=== PATIENT | male | born 1950 | race Caucasian/White ===

== ENCOUNTER 2016-07-29 08:00 | Outpatient (CLI) | payer MEDICARE, MEDICAID | END 2016-07-29 08:01 | disposition home or self-care (01) | DX: M86.671 Other chronic osteomyelitis, right ankle and foot (principal) ==

== ENCOUNTER 2016-08-03 13:41 | Emergency (ER) | payer MEDICARE, MEDICAID ==
[2016-08-03] MEDS ORDERED: ALTEPLASE 2 MG VIAL IC ONE (14:06)
== END 2016-08-03 15:23 | disposition home or self-care (01) ==
DX: T82.898A Other specified complication of vascular prosthetic devices, implants and grafts, initial encounter (principal); Y84.6 Urinary catheterization as the cause of abnormal reaction of the patient, or of later complication, without mention of misadventure at the time of the procedure; E11.42 Type 2 diabetes mellitus with diabetic polyneuropathy; I48.91 Unspecified atrial fibrillation; Z79.01 Long term (current) use of anticoagulants; I50.9 Heart failure, unspecified; F17.200 Nicotine dependence, unspecified, uncomplicated; Z95.810 Presence of automatic (implantable) cardiac defibrillator
CPT/HCPCS: 96374; 99283; J2997

== ENCOUNTER 2016-08-05 08:00 | Outpatient (CLI) | payer MEDICARE, MEDICAID | END 2016-08-05 08:01 | disposition home or self-care (01) | DX: M86.671 Other chronic osteomyelitis, right ankle and foot (principal) ==

== ENCOUNTER 2016-08-12 08:00 | Outpatient (CLI) | payer MEDICARE, MEDICAID | END 2016-08-12 08:01 | disposition home or self-care (01) | DX: M86.179 Other acute osteomyelitis, unspecified ankle and foot (principal) ==

== ENCOUNTER 2016-08-16 09:10 | Outpatient (CLI) | payer MEDICARE, MEDICAID | END 2016-08-16 09:11 | disposition home or self-care (01) | DX: I48.91 Unspecified atrial fibrillation (principal); Z79.01 Long term (current) use of anticoagulants ==

== ENCOUNTER 2016-08-19 10:30 | Outpatient (CLI) | payer MEDICARE, MEDICAID | END 2016-08-19 10:31 | disposition home or self-care (01) | DX: M86.179 Other acute osteomyelitis, unspecified ankle and foot (principal) ==

== ENCOUNTER 2016-08-26 13:30 | Outpatient (CLI) | payer MEDICARE, MEDICAID | END 2016-08-26 13:31 | disposition home or self-care (01) | DX: M86.179 Other acute osteomyelitis, unspecified ankle and foot (principal) ==

== ENCOUNTER 2016-10-18 08:00 | Outpatient (CLI) | payer MEDICARE, MEDICAID | END 2016-10-18 23:59 | DX: I25.10 Atherosclerotic heart disease of native coronary artery without angina pectoris (principal); E11.9 Type 2 diabetes mellitus without complications; I48.91 Unspecified atrial fibrillation ==

== ENCOUNTER 2017-02-10 15:06 | Outpatient (CLI) | payer MEDICAID, MEDICARE | END 2017-02-10 15:07 | LOC: LAB.S 15:06 | PROVIDERS: ATTEND Internal Medicine Cardiovascular Disease | DX: I48.91 Unspecified atrial fibrillation (principal); Z79.01 Long term (current) use of anticoagulants | CPT/HCPCS: 85610 ==

== ENCOUNTER 2017-02-25 08:00 | Outpatient (CLI) | payer MEDICARE | END 2017-02-25 08:01 | disposition home or self-care (01) | LOC: LAB.F 08:00 | PROVIDERS: ATTEND Internal Medicine Cardiovascular Disease | DX: I48.91 Unspecified atrial fibrillation (principal); Z79.01 Long term (current) use of anticoagulants | CPT/HCPCS: 85610 ==

== ENCOUNTER 2017-04-02 08:29 | Outpatient (CLI) | payer MEDICARE | END 2017-04-02 08:30 | disposition home or self-care (01) | LOC: LAB.F 08:29 | PROVIDERS: ATTEND Internal Medicine Cardiovascular Disease | DX: I48.91 Unspecified atrial fibrillation (principal); Z79.01 Long term (current) use of anticoagulants | CPT/HCPCS: 85610 ==

== ENCOUNTER 2017-04-14 08:00 | Outpatient (CLI) | payer MEDICARE | END 2017-04-14 08:01 | disposition home or self-care (01) | LOC: LAB.S 08:00 | PROVIDERS: ATTEND Internal Medicine Cardiovascular Disease | DX: I48.91 Unspecified atrial fibrillation (principal); Z79.01 Long term (current) use of anticoagulants | CPT/HCPCS: 85610 ==

== ENCOUNTER 2017-06-09 14:41 | Outpatient (CLI) | payer MEDICARE | END 2017-06-09 14:42 | LOC: LAB.S 14:41 | PROVIDERS: ATTEND Nurse Practitioner Family | DX: I48.91 Unspecified atrial fibrillation (principal); Z79.01 Long term (current) use of anticoagulants | CPT/HCPCS: 85610 ==

== ENCOUNTER 2017-07-23 14:57 | Outpatient (CLI) | payer MEDICARE | END 2017-07-23 14:58 | disposition home or self-care (01) | LOC: LAB.F 14:57 | PROVIDERS: ATTEND Nurse Practitioner Family | DX: I48.91 Unspecified atrial fibrillation (principal); Z79.01 Long term (current) use of anticoagulants | CPT/HCPCS: 85610 ==

== ENCOUNTER 2017-09-08 08:00 | Outpatient (CLI) | payer MEDICARE | END 2017-09-08 08:01 | disposition home or self-care (01) | LOC: LAB.S 08:00 | PROVIDERS: ATTEND Nurse Practitioner Family | DX: I48.91 Unspecified atrial fibrillation (principal); Z79.01 Long term (current) use of anticoagulants | CPT/HCPCS: 85610 ==

== ENCOUNTER 2017-10-16 14:42 | Outpatient (CLI) | payer MEDICARE | END 2017-10-16 14:43 | disposition home or self-care (01) | LOC: LAB.F 14:42 | PROVIDERS: ATTEND Nurse Practitioner Family | DX: I48.91 Unspecified atrial fibrillation (principal); Z79.01 Long term (current) use of anticoagulants | CPT/HCPCS: 85610 ==

== ENCOUNTER 2017-11-24 08:00 | Outpatient (CLI) | payer MEDICARE | END 2017-11-24 08:01 | disposition home or self-care (01) | LOC: LAB.S 08:00 | PROVIDERS: ATTEND Nurse Practitioner Family | DX: I48.91 Unspecified atrial fibrillation (principal); Z79.01 Long term (current) use of anticoagulants | CPT/HCPCS: 85610 ==

== ENCOUNTER 2018-01-15 13:06 | Outpatient (CLI) | payer MEDICARE | END 2018-01-15 13:07 | disposition home or self-care (01) | LOC: LAB.F 13:06 | PROVIDERS: ATTEND Nurse Practitioner Family | DX: I48.91 Unspecified atrial fibrillation (principal); Z79.01 Long term (current) use of anticoagulants | CPT/HCPCS: 85610 ==

== ENCOUNTER 2018-01-19 09:55 | Outpatient (CLI) | payer MEDICARE | END 2018-01-19 09:56 | disposition home or self-care (01) | LOC: LAB.S 09:55 | PROVIDERS: ATTEND Nurse Practitioner Family | DX: I48.91 Unspecified atrial fibrillation (principal); Z79.01 Long term (current) use of anticoagulants | CPT/HCPCS: 85610 ==

== ENCOUNTER 2018-01-22 09:14 | Outpatient (CLI) | payer MEDICARE | END 2018-01-22 09:15 | disposition home or self-care (01) | LOC: LAB.F 09:14 | PROVIDERS: ATTEND Nurse Practitioner Family | DX: I48.91 Unspecified atrial fibrillation (principal); Z79.01 Long term (current) use of anticoagulants | CPT/HCPCS: 85610 ==

== ENCOUNTER 2018-01-26 10:39 | Outpatient (CLI) | payer MEDICARE | END 2018-01-26 10:40 | disposition home or self-care (01) | LOC: LAB.S 10:39 | PROVIDERS: ATTEND Nurse Practitioner Family | DX: I48.91 Unspecified atrial fibrillation (principal); Z79.01 Long term (current) use of anticoagulants | CPT/HCPCS: 85610 ==

== ENCOUNTER 2018-03-19 13:15 | Outpatient (CLI) | payer MEDICARE ==
[2018-03-19 18:22] LABS: INR 3.6 (0.8-1.2); PT - PROTHROMBIN TIME 38.6 secs (9.9-12.6)
== END 2018-03-19 13:16 ==
LOC: LAB.R 13:15
PROVIDERS: ATTEND Nurse Practitioner Family
DX: Z51.81 Encounter for therapeutic drug level monitoring (principal)
CPT/HCPCS: 85610

== ENCOUNTER 2018-03-31 13:55 | Outpatient (CLI) | payer MEDICAID, MEDICARE | END 2018-03-31 13:56 | disposition home or self-care (01) | LOC: RT.S 13:55 | PROVIDERS: ATTEND Nurse Practitioner Family | DX: R63.5 Abnormal weight gain (principal); R06.02 Shortness of breath | CPT/HCPCS: 93005 ==

== ENCOUNTER 2018-04-01 09:19 | Outpatient (CLI) | payer MEDICAID, MEDICARE ==
[2018-04-01 17:28] LABS: BASOPHILS % (AUTO) 0.4 %; EOSINOPHILS # (AUTO) 0.1 10^3/uL (0.0-0.7); EOSINOPHILS % (AUTO) 1.1 %; HGB - HEMOGLOBIN 11.6 g/dL (14.0-18.0); LYMPHOCYTES # (AUTO) 1.2 10^3/uL (1.5-3.5); LYMPHOCYTES % (AUTO) 14.5 %; MEAN CORPUSCULAR HEMOGLOBIN 27.5 pg (27.0-31.0); MEAN CORPUSCULAR HGB CONC 33.2 g/dL (32.0-36.0); MEAN CORPUSCULAR VOLUME 82.9 fL (80.0-94.0); MEAN PLATELET VOLUME 10.1 fL (7.4-11.4); MONOCYTES # (AUTO) 0.6 10^3/uL (0.0-1.0); MONOCYTES % (AUTO) 7.4 %; NEUTROPHILS # (AUTO) 6.5 10^3/uL (1.5-6.6); NEUTROPHILS % (AUTO) 76.6 %; PLT - PLATELET COUNT 188 10^3/uL (130-450); RED BLOOD COUNT 4.22 10^6/uL (4.70-6.10); RED CELL DISTRIBUTION WIDTH 16.1 % (12.0-15.0); WHITE BLOOD COUNT 8.4 x10^3/uL (4.8-10.8)
[2018-04-01 17:41] LABS: ALBUMIN 2.8 g/dL (3.2-5.5); ALBUMIN/GLOBULIN RATIO 0.6 (1.0-2.2); BILIRUBIN,TOTAL 0.8 mg/dL (0.2-1.0); CALCIUM 8.2 mg/dL (8.5-10.3); CREATININE 1.2 mg/dL (0.6-1.2); TOTAL PROTEIN 7.3 g/dL (6.7-8.2)
[2018-04-01 17:44] LABS: HB2 TOTAL 11.8 g/dL; HEMOGLOBIN A1C 0.53 g/dL; HEMOGLOBIN A1C % 6.3 % (4.6-6.2)
[2018-04-01 17:47] LABS: TROPONIN I < 0.04 ng/mL (<0.49)
[2018-04-01 18:06] LABS: CREATINE KINASE MB 1.1 ng/mL (0.6-6.3)
== END 2018-04-01 09:20 | disposition home or self-care (01) ==
LOC: LAB.F 09:19
PROVIDERS: ATTEND Nurse Practitioner Family
DX: R63.5 Abnormal weight gain (principal); E11.40 Type 2 diabetes mellitus with diabetic neuropathy, unspecified; R06.02 Shortness of breath
CPT/HCPCS: 36415; 80053; 82043; 82553; 83036; 84484; 85025; 85379

== ENCOUNTER 2018-05-22 15:03 | Inpatient (IN) | payer MEDICARE ==
--- NOTE | 2018-05-22 15:15 | ED Physician Documentation ---
History of Present Illness - Stated complaint Stated Complaint: SENT BY DOC - Chief complaint Chief Complaint: General - History obtained from History obtained from: Patient - History of Present Illness Timing: Today Pain level max: 0 Pain level now: 0 - Additonal information Additional information: Patient is a 67-year-old male who states he has gained 20 lbs in 3 days. Also states that he has mild dyspnea. does not use inhalers. States he is feeling more tired than usual and his urine is dark. States fallen 2-3 times in the past week. no injuries. feels better with rest and worse with exertion. Review of Systems Ten Systems: 10 systems reviewed and negative Constitutional: denies: Fever, Chills Ears: denies: Ear pain Nose: denies: Rhinorrhea / runny nose, Congestion Throat: denies: Sore throat GI: denies: Abdominal Pain, Vomiting, Diarrhea, Hematemesis, Bloody / black stool Skin: denies: Rash Musculoskeletal: denies: Neck pain, Back pain Neurologic: denies: Headache PD PAST MEDICAL HISTORY - Past Medical History Cardiovascular: Congestive heart failure, Atrial fibrillation, Other Respiratory: Sleep apnea Endocrine/Autoimmune: Type 2 diabetes GI: Hepatitis : Benign prostate hypertrophy, Renal insuffiency HEENT: Chronic hearing loss Psych: Depression Musculoskeletal: Other Derm: None - Past Surgical History Past Surgical History: Yes Ortho: Amputation Cardiovascular: AICD - Present Medications Home Medications: Ambulatory Orders Medication Instructions Recorded Confirmed Furosemide [Lasix] 40 mg PO DAILY 12/01/12 05/22/18 Potassium Chloride [Klor-Con M10] 20 meq PO DAILY 12/01/12 05/22/18 Warfarin Sodium [Coumadin] 10 mg PO DAILY 12/01/12 05/22/18 Lisinopril [Prinivil] 10 mg PO DAILY 12/23/13 05/22/18 Oxycodone HCl 20 mg PO 5XD 09/06/15 05/22/18 fentaNYL [Fentanyl 12mcg patch] 12 mcg TOP Q72H 05/22/18 05/22/18 - Allergies Allergies/Adverse Reactions: Allergies Allergy/AdvReac Type Severity Reaction Status Date / Time carvedilol Allergy Unknown Anxiety Verified 08/03/16 13:57 Sulfa (Sulfonamide Allergy Unknown unknown Verified 08/03/16 13:57 Antibiotics) hydrochlorothiazide Allergy Rash Verified 08/03/16 13:57 tegaderm Allergy Mild Rash Uncoded 08/03/16 13:57 - Social History Does the pt smoke?: Yes Smoking Status: Current some day smoker Does the pt drink ETOH?: No Does the pt have substance abuse?: No - Immunizations Immunizations are current?: Yes - POLST Patient has POLST: No PD ED PE NORMAL - Vitals Vital signs reviewed: Yes - General General: Alert and oriented X 3, No acute distress - HEENT HEENT: PERRL, Ears normal, Moist mucous membranes, Pharynx benign - Neck Neck: Supple, no meningeal sign - Cardiac Cardiac: RRR, Strong equal pulses - Respiratory Respiratory: No respiratory distress, Clear bilaterally - Abdomen Abdomen: Soft, Non tender, Non distended - Back Back: No spinal TTP - Derm Derm: Warm and dry, No rash - Extremities Extremities: Other (1+ B LE edema) - Neuro Neuro: Alert and oriented X 3 - Psych Psych: Normal mood, Normal affect Results - Vitals Vitals: Vital Signs - 24 hr 05/22/18 05/22/18 05/22/18 15:07 16:02 17:00 Temperature 36.3 C L Heart Rate 132 H 104 H 92 Respiratory 18 12 16 Rate Blood Pressure 98/67 140/129 H O2 Saturation 98 97 05/22/18 17:30 Temperature Heart Rate 95 Respiratory 16 Rate Blood Pressure 155/90 H O2 Saturation 97 Oxygen O2 Source [With Activity] Room air O2 Source Room air - EKG (time done) 1537 Rate: Rate (enter#) (115) Rhythm: Atrial fibrillation (w RVR) [place]: Normal QRS: Normal Ischemia: Normal ST segments - Labs Labs: Laboratory Tests 05/22/18 05/22/18 05/22/18 15:30 15:30 15:38 WBC RBC Hgb Hct MCV MCH MCHC RDW Plt Count MPV Neut # (Auto) Lymph # (Auto) [place] # (Auto) Eos # (Auto) Baso # (Auto) Absolute Nucleated RBC Nucleated RBC % PT INR Sodium Potassium Chloride Carbon Dioxide Anion Gap BUN Creatinine Estimated GFR (MDRD) Glucose Calcium Total Bilirubin AST ALT Alkaline Phosphatase Total Creatine Kinase 107 Troponin I < 0.04 B-Natriuretic Peptide Total Protein Albumin Globulin Albumin/Globulin Ratio Lipase Urine Color BROWN Urine Clarity BLOODY Urine pH 5.0 Ur Specific [place] 1.025 Urine Protein Urine Glucose (UA) Urine Ketones Urine Occult Blood Urine Nitrite Urine Bilirubin COLOR INTERFERENCE Urine Urobilinogen 0.2 (NORMAL) Ur Leukocyte Esterase Urine RBC TNTC H Urine WBC 11-25 H Ur Squamous Epith Cells FEW Squamous Urine Bacteria Few Urine Yeast PRESENT Ur Microscopic Review INDICATED Urine Culture Comments INDICATED 05/22/18 05/22/18 05/22/18 15:40 15:40 15:40 WBC 10.0 RBC 4.59 L Hgb 12.4 L Hct 37.8 L MCV 82.4 MCH 26.9 L MCHC 32.7 RDW 18.1 H Plt Count 109 L MPV 9.4 Neut # (Auto) 8.5 H Lymph # (Auto) 0.6 L [place] # (Auto) 0.8 Eos # (Auto) 0.0 Baso # (Auto) 0.0 Absolute Nucleated RBC 0.00 Nucleated RBC % 0.0 PT INR Sodium 129 L Potassium 4.1 Chloride 95 L Carbon Dioxide 23 Anion Gap 11.0 BUN 52 H Creatinine 3.8 H Estimated GFR (MDRD) 16 L Glucose 139 H Calcium 8.1 L Total Bilirubin 1.1 H AST 28 ALT 18 Alkaline Phosphatase 70 Total Creatine Kinase Troponin I B-Natriuretic Peptide 97 Total Protein 7.2 Albumin 3.2 Globulin 4.0 Albumin/Globulin Ratio 0.8 L Lipase 21 L Urine Color Urine Clarity Urine pH Ur Specific [place] Urine Protein Urine Glucose (UA) Urine Ketones Urine Occult Blood Urine Nitrite Urine Bilirubin Urine Urobilinogen Ur Leukocyte Esterase Urine RBC Urine WBC Ur Squamous Epith Cells Urine Bacteria Urine Yeast Ur Microscopic Review Urine Culture Comments 05/22/18 15:40 WBC RBC Hgb Hct MCV MCH MCHC RDW Plt Count MPV Neut # (Auto) Lymph # (Auto) [place] # (Auto) Eos # (Auto) Baso # (Auto) Absolute Nucleated RBC Nucleated RBC % PT 24.8 H INR 2.2 H Sodium Potassium Chloride Carbon Dioxide Anion Gap BUN Creatinine Estimated GFR (MDRD) Glucose Calcium Total Bilirubin AST ALT Alkaline Phosphatase Total Creatine Kinase Troponin I B-Natriuretic Peptide Total Protein Albumin Globulin Albumin/Globulin Ratio Lipase Urine Color Urine Clarity Urine pH Ur Specific [place] Urine Protein Urine Glucose (UA) Urine Ketones Urine Occult Blood Urine Nitrite Urine Bilirubin Urine Urobilinogen Ur Leukocyte Esterase Urine RBC Urine WBC Ur Squamous Epith Cells Urine Bacteria Urine Yeast Ur Microscopic Review Urine Culture Comments - Rads (name of study) cxr Radiology: Prelim report reviewed, EMP read contemporaneously, See rad report (Normal single view chest. ) PD MEDICAL DECISION MAKING - ED course Complexity details: reviewed results, re-evaluated patient, considered differential, d/w patient, d/w information systems consultant ED course: 67-year-old male with acute renal failure. Likely secondary to overdiuresis. He does feel better breathing after nebulizer treatment. Given IV fluids and discussed case with the hospitalist who will admit for further evaluation. This document was made in part using voice recognition software. While efforts are made to proofread this document, sound alike and grammatical errors may occur. Patient also has atrial fibrillation with rapid ventricular response, responded well to diltiazem Departure - Departure Disposition: 67 [facility] DC/Xfer Clinical Impression: Atrial fibrillation with RVR Acute renal failure Qualifiers: Acute renal failure type: unspecified Qualified Code(s): N17.9 - Acute kidney failure, unspecified Condition: Stable Discharge Date/Time: 05/22/18 18:40
[2018-05-22 15:44] LABS: BASOPHILS % (AUTO) 0.1 %; EOSINOPHILS % (AUTO) 0.3 %; HGB - HEMOGLOBIN 12.4 g/dL (14.0-18.0); LYMPHOCYTES # (AUTO) 0.6 10^3/uL (1.5-3.5); LYMPHOCYTES % (AUTO) 6.2 %; MEAN CORPUSCULAR HEMOGLOBIN 26.9 pg (27.0-31.0); MEAN CORPUSCULAR HGB CONC 32.7 g/dL (32.0-36.0); MEAN CORPUSCULAR VOLUME 82.4 fL (80.0-94.0); MEAN PLATELET VOLUME 9.4 fL (7.4-11.4); MONOCYTES # (AUTO) 0.8 10^3/uL (0.0-1.0); MONOCYTES % (AUTO) 7.9 %; NEUTROPHILS # (AUTO) 8.5 10^3/uL (1.5-6.6); NEUTROPHILS % (AUTO) 85.5 %; PLT - PLATELET COUNT 109 10^3/uL (130-450); RED BLOOD COUNT 4.59 10^6/uL (4.70-6.10); RED CELL DISTRIBUTION WIDTH 18.1 % (12.0-15.0)
--- NOTE | 2018-05-22 15:48 | XRAY Report ---
Reason: dyspnea Procedure Date: 05/22/2018 Accession Number: [id number] / [id number] Procedure: XR - Chest 1 View X-Ray CPT Code: 14730 FULL RESULT: EXAM: CHEST RADIOGRAPHY EXAM DATE: 05/22/2018 03:23 PM. CLINICAL HISTORY: Dyspnea. COMPARISON: 12/08/2014 10:27 AM. TECHNIQUE: 1 view. FINDINGS: Lungs/Pleura: No focal opacities evident. No pleural effusion. No pneumothorax. Mediastinum: Within exam limitations, the cardiomediastinal contour is normal. Other: Abandoned left pectoral VENTILATING ENGINEER-D lead in stable position. IMPRESSION: Normal single view chest. RADIA
[2018-05-22] MEDS ORDERED: IPRATROPIUM/ALBUTEROL 3 ML NEB INH STA (15:49)
[2018-05-22 15:51] LABS: INR 2.2 (0.8-1.2); PT - PROTHROMBIN TIME 24.8 secs (9.9-12.6)
[2018-05-22 15:59] LABS: ALBUMIN 3.2 g/dL (3.2-5.5); ALBUMIN/GLOBULIN RATIO 0.8 (1.0-2.2); BILIRUBIN,TOTAL 1.1 mg/dL (0.2-1.0); CALCIUM 8.1 mg/dL (8.5-10.3); CREATININE 3.8 mg/dL (0.6-1.2); TOTAL PROTEIN 7.2 g/dL (6.7-8.2)
[2018-05-22] MEDS ORDERED: diltiaZEM INJ 5 MG/ML VIAL IVP STA (16:00)
[2018-05-22] MEDS ORDERED: SODIUM CHLORIDE 0.9% 1,000 ML IV ONE ×2 (16:06)
[2018-05-22 16:19] LABS: UROBILINOGEN,URINE 0.2 (NORMAL) E.U./dL (NORMAL)
[2018-05-22 16:41] LABS: CLARITY,URINE BLOODY (CLEAR)
[2018-05-22 16:42] LABS: BILIRUBIN,URINE COLOR INTERFERENCE (NEGATIVE)
[2018-05-22 16:43] LABS: BACTERIA,URINE Few /HPF (None Seen); RBC,URINE TNTC /HPF (0-5); SQUAMOUS EPITHELIAL CELL,UR FEW Squamous (<= Few); YEAST,URINE PRESENT
[2018-05-22] MEDS ORDERED: PROCHLORPERAZINE 10 MG/2 ML VIAL IVP PRN (17:51)
[2018-05-22] MEDS ORDERED: ACETAMINOPHEN 325 MG TABLET PO PRN (17:51)
[2018-05-22] MEDS ORDERED: SODIUM CHLORIDE FLUSH 0.9% 10 ML SYRINGE IVP PRN (17:51)
[2018-05-22] MEDS ORDERED: NICOTINE 14 MG PATCH TOP SCH (18:00)
[2018-05-22] MEDS ORDERED: fentaNYL 12 MCG PATCH TOP SCH (18:00)
[2018-05-22] MEDS ORDERED: SODIUM CHLORIDE 0.9% 1,000 ML IV SCH (18:00)
[2018-05-22] MEDS ORDERED: LEVALBUTEROL 1.25 MG/3 ML NEB INH PRN (18:02)
[2018-05-22] MEDS: oxyCODONE 5 MG TABLET PO PRN (20:34)
[2018-05-22] MEDS: FAMOTIDINE 20 MG TABLET PO SCH (20:34)
--- NOTE | 2018-05-22 21:01 | HISTORY & PHYSICAL EXAMINATION ---
DATE OF SERVICE: 05/22/2018 Physician: Clara Rod MD HISTORY OF PRESENT ILLNESS: This is a 67-year-old white male with history of diabetes, currently only on a diabetic diet, he has a history of atrial fibrillation on Coumadin, diabetes, chronic osteomyelitis of the right foot, heel and ankle and previous 11 surgeries including amputations of toes bilaterally. He has had a thrombosis of the right axillary vein due to a PICC line, history of hypertension, depression, chronic pain for which he uses a fentanyl patch and oral opioids, is a smoker, has sleep apnea. The patient also states that he has a history of heart failure, but does not know his ejection fraction and has not seen a plant science professor in 5 years. He states that he is "allergic to Coreg and metoprolol, which make him crazy." Apparently, he has been gaining about 20 pounds over the last 2 weeks, and gets occasional orthopnea. He has gotten weaker over the past 1 to 2 days and went to his clinic, and also described urinating "dark urine." He was advised to come to the emergency room where he was found to have acute kidney injury on labs with a creatinine over 3 (he usually has a normal creatinine). He also did have dark urine from hematuria, which was found on lab testing. PAST MEDICAL HISTORY 1. Chronic atrial fibrillation on Coumadin. 2. Diabetes on diet only. 3. Osteomyelitis of the right ankle. 4. Status post bilateral metatarsal amputations of both sides. 5. Right axillary vein clot. 6. Hypertension. 7. Unknown type of heart failure. 8. Sleep apnea. ALLERGIES 1. CARVEDILOL. 2. METOPROLOL. 3. SULFA. 4. HYDROCHLOROTHIAZIDE. 5. TEGADERM. MEDICATIONS 1. Tylenol p.r.n. 2. Pepcid 20 b.i.d. 3. Duragesic patch topically every 3 days. 4. Lisinopril 10 mg daily. 5. Lasix 40 mg daily. 6. Potassium 20 mEq daily. 7. Warfarin 10 mg daily. FAMILY HISTORY: Noncontributory. SOCIAL HISTORY: The patient is a smoker of a pack a day, drinks no alcohol whatsoever for the past 11 years and uses no illicit drugs. REVIEW OF SYSTEMS: There has been no fever, he gets Home Health visits to his house 2 times a week for management of the chronic wound of his foot. He is compliant with his medications. He denies any chest pain. He apparently has pain in the feet, as they are not numb from a neuropathy. A comprehensive review of systems was performed, and the pertinent positives are listed, the rest are negative. PHYSICAL EXAMINATION GENERAL: White male who is in no distress, sitting upright in bed. VITAL SIGNS: Blood pressure 103/50, heart rate 99 in atrial fibrillation, afebrile, room air saturation 99%. HEENT: Reveals baldness, dry oral mucosa, he appears fatigued and occasionally closes his eyes as he answers, but he is completely awake and alert. NECK: Without JVD or carotid bruits. LUNGS: Diminished breath sounds, but no rales or wheezes. CARDIOVASCULAR: Heart sounds are distant. No audible murmur. ABDOMEN: Distended with possible ascites and possible hepatomegaly. Nontender. Normal bowel sounds. EXTREMITIES: Show 3+ edema to the posterior thighs. His toes are amputated. The right foot also has further amputation of the metatarsals. The right ankle on the bottom has an open wound that is approximately 8 cm long with blackness at the edges and is draining yellow purulent fluid that is also foul smelling. NEUROLOGIC: Grossly intact. LABORATORY DATA: Sodium 129, potassium 4.1, BUN 52, creatinine 3.8, glucose 139, calcium 8.1, bilirubin 1.1. Normal liver tests. Troponin not detectable. BNP 97. Lipase normal. White blood count 10, hemoglobin 12.4 with an MCV of 82, RDW 18, platelet count 109. INR 2.2. Urinalysis showed brown bloody urine with too many red blood cells to count, high white cells and few squamous cells and few bacteria. CHEST X-RAY: No active disease. EKG: Atrial fibrillation with a rate of 115 and otherwise unremarkable. IMPRESSION/DIAGNOSIS 1. Acute kidney injury. 2. Hematuria. 3. Atrial fibrillation with rapid ventricular response. 4. Diabetes, only on a diet for control. 5. Chronic osteomyelitis of the right foot. 6. Smoker. 7. History of coronary artery disease. 8. History of chronic pain. 9. History of depression. PLAN: Admit the patient to telemetry. Begin slow fluid hydration to trat pre- renal azotemia from his diuretics, which may be the cause of the acute kidney injury. Obtain imaging of the kidneys to rule out intra-renal or post-renal problems such as tumor or obstruction; will order renal ultrasound, bladder ultrasound, CT without contrast of the abdomen and pelvis. The patient himself discussed the possibility of dialysis and knows that nephrology management may be needed. Culture the foot wound, obtain a wound consult, follow his CBC, get blood cultures if he spikes a fever. Continue with topical management of the wound, unless otherwise advised, by obtaining an orthopedic consult. Follow his BMP and CBC daily. Obtain an Echo to establish LV contractility. Do not use the Lasix, potassium, and KIMMY inhibitor because of the acute renal failure and unfortunately, we cannot use a beta malissa because of his allergies to these. If the heart rate is not controlled with volume replacement, then Cardizem will be used for rate control. Follow INR daily and continue his Coumadin dose. Begin a diabetic diet and fingerstick glucose checks and sliding scale insulin coverage if needed. Obtain an A1c to determine his level of control with his DM diet-only control history. CODE STATUS: FULL CODE. DEEP VENOUS THROMBOSIS PROPHYLAXIS: He is on therapeutic Coumadin, which will be continued. ATTESTATION: The patient is expected to be discharged or transferred to another facility at 96 hours: Yes. TD: 05/22/2018 20:10 CANDI
[2018-05-22] MEDS: INSULIN ASPART 300 UNIT/3 ML PEN SUBQ SCH (22:24)
[2018-05-23] MEDS: SODIUM CHLORIDE FLUSH 0.9% 10 ML SYRINGE IVP SCH ×2 (00:18→09:06)
--- NOTE | 2018-05-23 03:15 | Ultrasound Report ---
Reason: Hematuria Procedure Date: 05/23/2018 Accession Number: [id number] / [id number] Procedure: US - Retroperitoneal CPT Code: FULL RESULT: EXAM: RENAL ULTRASOUND EXAM DATE: 05/23/2018 12:05 AM. CLINICAL HISTORY: Hematuria. COMPARISON: None. TECHNIQUE: Real-time scanning was performed with static images obtained. FINDINGS: Right Kidney: 13.8 x 6.4 x 6.1 cm. Somewhat suboptimally seen due to body habitus. Grossly normal echotexture with no stones, contour-deforming masses, or hydronephrosis. Left Kidney: 12.9 x 6.8 x 6.4 cm. Somewhat suboptimally seen due to body habitus. Grossly normal echotexture with no stones, contour-deforming masses, or hydronephrosis. Bladder: Bilateral jets not seen. The prevoid bladder volume was 125 cc. The postvoid bladder volume was 70 cc. Other: None. IMPRESSION: 1. Kidneys are somewhat suboptimally seen due to body habitus. No obvious renal abnormality identified. 2. Ureteral jets were not seen in the urinary bladder. 3. Postvoid residual 70 cc. RADIA
[2018-05-23] MEDS: oxyCODONE 5 MG TABLET PO PRN (03:56)
[2018-05-23 06:30] LABS: BASOPHILS % (AUTO) 0.2 %; EOSINOPHILS % (AUTO) 0.6 %; HGB - HEMOGLOBIN 11.1 g/dL (14.0-18.0); LYMPHOCYTES # (AUTO) 0.9 10^3/uL (1.5-3.5); LYMPHOCYTES % (AUTO) 10.7 %; MEAN CORPUSCULAR HGB CONC 32.7 g/dL (32.0-36.0); MEAN CORPUSCULAR VOLUME 82.4 fL (80.0-94.0); MEAN PLATELET VOLUME 9.5 fL (7.4-11.4); MONOCYTES % (AUTO) 12.7 %; NEUTROPHILS # (AUTO) 6.2 10^3/uL (1.5-6.6); NEUTROPHILS % (AUTO) 75.8 %; PLT - PLATELET COUNT 92 10^3/uL (130-450); RED BLOOD COUNT 4.13 10^6/uL (4.70-6.10); RED CELL DISTRIBUTION WIDTH 18.6 % (12.0-15.0); WHITE BLOOD COUNT 8.2 x10^3/uL (4.8-10.8)
[2018-05-23 06:35] LABS: INR 2.4 (0.8-1.2); PT - PROTHROMBIN TIME 27.2 secs (9.9-12.6)
[2018-05-23 06:45] LABS: CALCIUM 7.7 mg/dL (8.5-10.3); CREATININE 4.9 mg/dL (0.6-1.2)
[2018-05-23 07:46] LABS: HB2 TOTAL 11.7 g/dL; HEMOGLOBIN A1C 0.5 g/dL; HEMOGLOBIN A1C % 6.1 % (4.6-6.2)
[2018-05-23] MEDS: INSULIN ASPART 300 UNIT/3 ML PEN SUBQ SCH ×2 (08:42→11:35)
[2018-05-23] MEDS ORDERED: WARFARIN 5 MG TABLET PO SCH (09:00)
[2018-05-23] MEDS ORDERED: POLYETHYLENE GLYCOL 3350 17 GM PACKET PO SCH (09:00)
[2018-05-23] MEDS: FAMOTIDINE 20 MG TABLET PO SCH (09:19)
--- NOTE | 2018-05-23 13:31 | Discharge Plan ---
Discharge Plan Disposition: 02 Transfer Acute Care Hosp Condition: Stable No Smoking: If you smoke, Please STOP! Call for help. Follow-up with: Myrna Dave ARNP [Primary Care Provider] -
[2018-05-23 15:31] VITALS: BP 116/65
--- NOTE | 2018-05-27 14:37 | DISCHARGE SUMMARY ---
Physician: Clara Rod MD DATE OF ADMISSION: 05/22/2018 DATE OF DISCHARGE: 05/23/2018 HISTORY OF PRESENT ILLNESS: This is a 67-year-old white male with history of diabetes with diet control only, history of atrial fibrillation, on Coumadin, osteomyelitis of the right foot with 11 previous surgeries to his feet including amputations of all toes and right-sided metatarsals. There is a history of thrombosis of the right axillary vein due to a PICC line, also history of hypertension, depression, chronic back pain, sleep apnea. The patient presented with history of "urinating dark urine." He was sent from the doctor's office to the emergency room where he was found to have acute kidney injury on labs with a creatinine over 3 and dark urine with urinalysis showing hematuria. He was admitted for management of this. HOSPITAL COURSE AND DISCHARGE DIAGNOSES 1. Acute kidney injury. His admission BUN and creatinine were 52 and 3.8 (normal creatinine for him is usually 1.0). The patient's Lasix, potassium, and lisinopril were discontinued as they may have been adding to renal failure. He was started on gentle IV hydration at 60 mL an hour of saline. Despite this, his BUN and creatinine keila to 62 and 4.9 on the next day. Due to his progressing renal failure, I reached out to Nephrology at [facility] and they agreed that he needs renal specialty management. The Hospitalist then accepted him in transfer and he was transferred on 05/23/2018. 2. Hematuria. The patient's urine appeared grossly brown. The urinalysis showed pH of 5, specific gravity 1.025, red blood cells were too many to count, white blood cells high, a few squamous and a few bacterial cells were also present. A culture was sent, but no results are available at the time of transfer. The patient had workup started here with a retroperitoneal ultrasound that showed no obvious renal abnormality, ureteral jets were not seen in the urinary bladder and there was a prevoid bladder volume of 125, postvoid bladder volume of 70 mL 3. Atrial fibrillation with rapid ventricular response. This patient's atrial fibrillation was chronic. His heart rate on admission was 132. He received medications for rate control, and at the time of discharge his heart rate was 75-92 in atrial fibrillation. 4. Diabetes mellitus, unknown type. His admission glucose was 130 and fingerstick glucoses were 117-150. His A1c was 6.1 indicating good control on his current management, which is diet only. 5. Chronic osteomyelitis of the right foot. The patient has had multiple surgeries with amputations. No toes are present and he requires special equipment for his feet for walking. He is followed at the [facility] here. The patient was found to have a large draining wound on the heel of his right foot. It was foul smelling and had purulent drainage. Fluid was sent for culture. No results are available at the time of transfer. His serum white blood count, however, was only 10 (but with a left shift). He had no fever while here. He was managed with topical care and wound dressings to the site. 6. Tobacco abuse. The patient declined a nicotine patch and stated that he did not have nicotine urges while here. 7. History of sleep apnea. His home CPAP device was ordered to be used. 8. History of chronic pain. The patient was continued on his home medications for pain control. 9. History of depression. The patient was continued on his home medications while here. CONDITION AT TRANSFER: Poor. PHYSICAL EXAMINATION: VITAL SIGNS: Blood pressure 115/65, pulse of 92, in atrial fibrillation. Afebrile. Room air saturation 98%. HEENT: Unremarkable. NECK: Without JVD or carotid bruits. CHEST: Clear. HEART: Sounds had a 2/6 systolic murmur at the lower left sternal border. ABDOMEN: Soft, nontender. Normal bowel sounds. EXTREMITIES: 3+ edema to the knees and 1+ edema of the posterior thighs up to his buttocks. All toes were amputated bilaterally. The right metatarsals are amputated. The right heel has a 4 cm long and 3 cm wide wound with drainage of yellow purulent and foul smelling material. There is no redness or warmth. NEUROLOGIC: The patient had intermittent confusion, which was felt to be from his uremia. LABORATORY AND IMAGING: An Echocardiogram was done while here and this showed mild LVH, EF of 55-60%, moderate RV enlargement with normal RV function, mild to moderate mitral regurgitation and tricuspid regurgitation, PA pressure normal at 31 mmHg. All other labs and imaging are reviewed and summarized above. DISCHARGE MEDICATIONS: 1. Fentanyl patch topically every 72 hours. 2. Lasix 40 mg p.o. daily. 3. Oxycodone 20 mg 5 times a day p.r.n. pain. 4. Warfarin 10 mg p.o. daily. CODE STATUS: FULL CODE. FOLLOWUP: This will be determined after his hospitalization at [facility]. Time required to complete the entire discharge, contacting stockbroking dealer and hospitalist at the accepting hospital, chart review, dictation: 60 minutes. cc: MARIAA Duffy TD: 05/27/2018 13:17 MTDD
== END 2018-05-23 16:20 | disposition short-term general hospital (02) | DRG 683 ==
LOC: ED 15:03 → MS2 17:51
PROVIDERS: ADMIT Internal Medicine; ATTEND Internal Medicine
DX: I48.91 Unspecified atrial fibrillation (principal); N17.9 Acute kidney failure, unspecified; M86.471 Chronic osteomyelitis with draining sinus, right ankle and foot; T50.1X5A Adverse effect of loop [high-ceiling] diuretics, initial encounter; E11.9 Type 2 diabetes mellitus without complications; Z91.81 History of falling; Z95.810 Presence of automatic (implantable) cardiac defibrillator; T50.3X5A Adverse effect of electrolytic, caloric and water-balance agents, initial encounter; T46.4X5A Adverse effect of angiotensin-converting-enzyme inhibitors, initial encounter; E11.69 Type 2 diabetes mellitus with other specified complication; F17.200 Nicotine dependence, unspecified, uncomplicated; E11.40 Type 2 diabetes mellitus with diabetic neuropathy, unspecified; R31.0 Gross hematuria; I48.2 Chronic atrial fibrillation; I11.0 Hypertensive heart disease with heart failure; I50.9 Heart failure, unspecified; F32.9 Major depressive disorder, single episode, unspecified; M54.9 Dorsalgia, unspecified; G89.29 Other chronic pain; G47.30 Sleep apnea, unspecified; I25.10 Atherosclerotic heart disease of native coronary artery without angina pectoris; F17.210 Nicotine dependence, cigarettes, uncomplicated; Z79.899 Other long term (current) drug therapy; Z79.01 Long term (current) use of anticoagulants; Z86.718 Personal history of other venous thrombosis and embolism; Z89.431 Acquired absence of right foot; Z89.412 Acquired absence of left great toe; Z89.422 Acquired absence of other left toe(s); Z79.891 Long term (current) use of opiate analgesic; Z88.8 Allergy status to other drugs, medicaments and biological substances
CPT/HCPCS: 36415; 71045; 76770; 80048; 80053; 81001; 81003; 82550; 83036; 83690; 83880; 84484; 85025; 85610; 87070; 87086; 87205; 93005; 93306; 94640; 96361; 96374; 99284; 99285

== ENCOUNTER 2019-02-12 | Outpatient (CLI) | payer MEDICARE, MEDICAID | END 2019-02-12 23:59 | disposition home or self-care (01) | DX: N18.4 Chronic kidney disease, stage 4 (severe) (principal) ==

== ENCOUNTER 2019-02-26 08:00 | Outpatient (CLI) | payer MEDICARE, MEDICAID | END 2019-02-26 23:59 | disposition home or self-care (01) | LOC: LAB.R 08:00 | PROVIDERS: ATTEND Physician Assistant Medical | DX: L97.522 Non-pressure chronic ulcer of other part of left foot with fat layer exposed (principal) | CPT/HCPCS: 87070; 87077; 87181; 87205 ==

== ENCOUNTER 2019-06-28 10:30 | Outpatient (CLI) | payer MEDICAID, MEDICARE | END 2019-06-28 23:59 | disposition home or self-care (01) | LOC: LAB.R 10:30 | PROVIDERS: ATTEND Physician Assistant Medical | DX: S91.302A Unspecified open wound, left foot, initial encounter (principal) | CPT/HCPCS: 87070; 87205 ==

== ENCOUNTER 2019-08-20 11:54 | Outpatient (CLI) | payer MEDICARE ==
[2019-08-20 17:34] LABS: CALCIUM 8.9 mg/dL (8.5-10.3); CREATININE 1.1 mg/dL (0.6-1.2)
[2019-08-20 17:44] LABS: HGB - HEMOGLOBIN 15.1 g/dL (14.0-18.0); MEAN CORPUSCULAR HEMOGLOBIN 27.2 pg (27.0-31.0); MEAN CORPUSCULAR HGB CONC 31.3 g/dL (32.0-36.0); MEAN CORPUSCULAR VOLUME 86.8 fL (80.0-94.0); MEAN PLATELET VOLUME 12.3 fL (7.4-11.4); RED BLOOD COUNT 5.55 10^6/uL (4.70-6.10); RED CELL DISTRIBUTION WIDTH 16.9 % (12.0-15.0); WHITE BLOOD COUNT 8.9 x10^3/uL (4.8-10.8)
[2019-08-20 17:53] LABS: HB2 TOTAL 14.8 g/dL; HEMOGLOBIN A1C 1.02 g/dL; HEMOGLOBIN A1C % 8.5 % (4.6-6.2)
[2019-08-20 18:10] LABS: CREATININE,URINE 73.9 mg/dL; MICROALBUM/CREATININE RATIO,UR 575.1 ug/mg (<30.0); MICROALBUMIN,URINE 42.5 mg/dL (0-300.0)
== END 2019-08-20 11:55 | disposition home or self-care (01) ==
LOC: LAB.S 11:54
PROVIDERS: ATTEND Physician Assistant
DX: E11.22 Type 2 diabetes mellitus with diabetic chronic kidney disease (principal); E11.40 Type 2 diabetes mellitus with diabetic neuropathy, unspecified; N18.4 Chronic kidney disease, stage 4 (severe); I50.9 Heart failure, unspecified; R06.02 Shortness of breath; I25.10 Atherosclerotic heart disease of native coronary artery without angina pectoris
CPT/HCPCS: 36415; 80048; 82043; 82570; 83036; 83880; 85027

== ENCOUNTER 2019-12-21 08:00 | Outpatient (CLI) | payer MEDICARE | END 2019-12-21 23:59 | disposition home or self-care (01) | LOC: LAB.S 08:00 | PROVIDERS: ATTEND Physician Assistant | DX: I48.20 Chronic atrial fibrillation, unspecified (principal); Z79.01 Long term (current) use of anticoagulants ==

== ENCOUNTER 2020-01-21 11:00 | Outpatient (CLI) | payer MEDICARE ==
[2020-01-21 15:20] LABS: BILIRUBIN,URINE NEGATIVE (NEGATIVE); GLUCOSE, URINE (UA) 250 mg/dL (NEGATIVE); KETONES,URINE (UA) NEGATIVE (NEGATIVE); LEUKOCYTE ESTERASE, URINE MODERATE (NEGATIVE); NITRITE,URINE NEGATIVE (NEGATIVE); OCCULT BLOOD,URINE MODERATE (NEGATIVE); PROTEIN,URINE 30 mg/dL (NEGATIVE); UROBILINOGEN,URINE 0.2 (NORMAL) E.U./dL (NORMAL)
[2020-01-21 15:42] LABS: BACTERIA,URINE Many /HPF (None Seen); CLARITY,URINE HAZY (CLEAR); SQUAMOUS EPITHELIAL CELL,UR RARE Squamous (<= Few)
== END 2020-01-21 23:59 | disposition home or self-care (01) ==
LOC: LAB.R 11:00
PROVIDERS: ATTEND Physician Assistant
DX: N39.0 Urinary tract infection, site not specified (principal)
CPT/HCPCS: 81001; 87077; 87086; 87181

== ENCOUNTER 2020-04-28 08:00 | Outpatient (CLI) | payer MEDICARE | END 2020-04-28 23:59 | disposition home or self-care (01) | LOC: LAB.R 08:00 | PROVIDERS: ATTEND Physician Assistant | DX: E11.621 Type 2 diabetes mellitus with foot ulcer (principal) | CPT/HCPCS: 87070; 87181; 87205 ==

== ENCOUNTER 2020-06-02 10:54 | Outpatient (CLI) | payer MEDICARE ==
--- NOTE | 2020-06-02 12:21 | XRAY Report ---
PROCEDURE: Foot 3 View LT INDICATIONS: DM FOOT ULCER TECHNIQUE: 3 views of the foot were acquired. COMPARISON: None FINDINGS: 3 views of the left foot were performed. There are postoperative changes of amputation of the first and second toes and transmetatarsal amputations of the third through fifth rays. The bones have degenerative changes and diffuse osteopenic changes. Vasculature has atherosclerotic calcificati ons. The calcaneus has a large plantar spur. There is no soft tissue gas. No erosions or cortical irr egularities to suggest osteomyelitis. IMPRESSION: Postoperative changes of amputations as above. No evidence of osteomyelitis. Reviewed by: Efrain Cassidy on 06/02/2020 12:20 PM PST Approved by: Efrain Cassidy on 06/02/2020 12:20 PM PST Station ID: [id number]
== END 2020-06-02 10:55 | disposition home or self-care (01) ==
LOC: DI 10:54
PROVIDERS: ATTEND Internal Medicine Gastroenterology
DX: E11.621 Type 2 diabetes mellitus with foot ulcer (principal); Z89.412 Acquired absence of left great toe; Z89.422 Acquired absence of other left toe(s)

== ENCOUNTER 2020-06-05 10:53 | Outpatient (CLI) | payer MEDICARE | END 2020-06-05 10:54 | disposition home or self-care (01) | LOC: LAB.S 10:53 | PROVIDERS: ATTEND Physician Assistant | DX: Z53.9 Procedure and treatment not carried out, unspecified reason (principal) ==

== ENCOUNTER 2020-06-23 12:57 | Outpatient (CLI) | payer MEDICARE | END 2020-06-23 12:58 | disposition home or self-care (01) | LOC: LAB.S 12:57 | PROVIDERS: ATTEND Physician Assistant | DX: I48.20 Chronic atrial fibrillation, unspecified (principal); Z79.01 Long term (current) use of anticoagulants | CPT/HCPCS: 36415; 83036; 85610 ==

== ENCOUNTER 2020-08-09 12:02 | Outpatient (CLI) | payer MEDICARE ==
[2020-08-09 12:49] LABS: BASOPHILS # (AUTO) 0.1 10^3/uL (0.0-0.1); BASOPHILS % (AUTO) 0.6 %; EOSINOPHILS # (AUTO) 0.2 10^3/uL (0.0-0.7); EOSINOPHILS % (AUTO) 1.8 %; HGB - HEMOGLOBIN 16.2 g/dL (14.0-18.0); LYMPHOCYTES # (AUTO) 1.5 10^3/uL (1.5-3.5); LYMPHOCYTES % (AUTO) 17.7 %; MEAN CORPUSCULAR HEMOGLOBIN 28.3 pg (27.0-31.0); MEAN CORPUSCULAR VOLUME 88.5 fL (80.0-94.0); MEAN PLATELET VOLUME 10.8 fL (7.4-11.4); MONOCYTES # (AUTO) 0.5 10^3/uL (0.0-1.0); NEUTROPHILS # (AUTO) 6.4 10^3/uL (1.5-6.6); NEUTROPHILS % (AUTO) 73.4 %; PLT - PLATELET COUNT 158 10^3/uL (130-450); RED BLOOD COUNT 5.73 10^6/uL (4.70-6.10); RED CELL DISTRIBUTION WIDTH 14.7 % (12.0-15.0); WHITE BLOOD COUNT 8.7 x10^3/uL (4.8-10.8)
[2020-08-09 12:56] LABS: HEMOGLOBIN A1c% 8.3 % (4.27-6.07)
[2020-08-09 13:02] LABS: ALBUMIN 3.9 g/dL (3.2-5.5); ALBUMIN/GLOBULIN RATIO 1.1 (1.0-2.2); BILIRUBIN,TOTAL 0.9 mg/dL (0.2-1.0); CALCIUM 9.2 mg/dL (8.5-10.3); CREATININE 1.1 mg/dL (0.6-1.2); TOTAL PROTEIN 7.5 g/dL (6.7-8.2)
== END 2020-08-09 12:03 | disposition home or self-care (01) ==
LOC: LAB 12:02
PROVIDERS: ATTEND Internal Medicine Gastroenterology
DX: E11.621 Type 2 diabetes mellitus with foot ulcer (principal)
CPT/HCPCS: 36415; 80053; 83036; 85025

== ENCOUNTER 2020-11-16 11:21 | Inpatient (IN) | payer MEDICARE ==
[2020-11-16] MEDS ORDERED: ACETAMINOPHEN 325 MG TABLET PO PRN (11:31)
[2020-11-16] MEDS ORDERED: HYDROcod/ACETAM 5/325 MG TABLET PO PRN (11:31)
[2020-11-16] MEDS ORDERED: SODIUM CHLORIDE FLUSH 0.9% 10 ML SYRINGE IVP PRN (11:31)
--- NOTE | 2020-11-16 11:37 | HISTORY & PHYSICAL EXAMINATION ---
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 He is nonadherent to care plan and does not always follow-up with the wound clinic when scheduled. He sees Dr. Ziggy Lawson for wound care. At evaluation today it was noted that he has a draining sinus which tracts and can be probed to bone on the left foot. He reports that the left foot has had a malodorous drainage for a few months now. He has had previous transmetatarsal amputation on the left foot. At time of presentation to the wound clinic it was erythematous and warm to touch, with associated pain. He also has redness just proximal to the left ankle. As a result he was presented for admission for further work-up and treatment. At bedside he is resting comfortably. He denies chest pain, dyspnea, abdominal pain, nausea, vomiting, fever or chills. History - Past Medical History Cardiovascular: reports: Congestive heart failure, Hypertension, High cholesterol, Deep vein thrombosis (axillary vein assoc with PICC line), Atrial fibrillation Respiratory: reports: Sleep apnea Neuro: reports: Peripheral neuropathy Endocrine/Autoimmune: reports: Type 2 diabetes GI: reports: Hepatitis : reports: Benign prostate hypertrophy, Renal insuffiency HEENT: reports: Chronic hearing loss Psych: reports: Depression Musculoskeletal: reports: Chronic back pain (followed in pain clinic in [place]) Derm: reports: None MRSA Hx?: No - Past Surgical History Ortho: reports: Amputation (right BKA; all toes left foot) Cardiovascular: reports: AICD - Family & Social History Family History Comment/Other: Extensive family history for diabetes Social History Notes: He does not smoke or use recreational substances - Substance History Use: Uses substance without health or social issues: Alcohol - POLST Patient has POLST: No POLST Status: Full Code Meds/Allgy - Home Medications Home Medications: Ambulatory Orders Medication Instructions Recorded Confirmed Furosemide [Lasix] 80 mg PO DAILY 12/01/12 11/01/20 Warfarin Sodium [Coumadin] 5 mg PO DAILY 12/01/12 11/01/20 Oxycodone HCl 10 mg PO . 09/06/15 11/01/20 Metoprolol Payan/Hydrochlorothiaz 25 each PO DAILY 10/15/18 11/01/20 [Metoprolol ER-Hctz 25-12.5 mg] Atorvastatin Calcium 40 mg PO QPM 05/31/20 11/01/20 DULoxetine [Cymbalta] 60 mg PO DAILY 05/31/20 11/01/20 metFORMIN [Glucophage] 1,000 mg PO BID 05/31/20 11/01/20 Amox/Clav 875/125 [Augmentin 1 each PO Q12H #14 tablet 10/13/20 875/125 Tab] - Allergies Allergies/Adverse Reactions: Allergies Allergy/AdvReac Type Severity Reaction Status Date / Time silver Allergy Mild Rash Verified 06/20/20 12:58 [From [employer]] carvedilol Allergy Unknown Anxiety Verified 06/20/20 12:58 Sulfa (Sulfonamide Allergy Unknown unknown Verified 06/20/20 12:58 Antibiotics) hydrochlorothiazide Allergy Rash Verified 06/20/20 12:58 Review of Systems - Constitutional Constitutional: denies: Fatigue, Fever, Chills - Eyes Eyes: denies: Pain, Dipolpia - Ears, Nose & Throat Ears, Nose & Throat: denies: Ear pain, Sore throat - Cardiovascular Cariovascular: reports: Irregular heart rate. denies: Chest pain, Lightheadedness, Syncope, Exertional dyspnea - Respiratory Respiratory: denies: Cough, Sputum production, Wheezing, SOB at rest, SOB with exertion - Gastrointestinal Gastrointestinal: denies: Abdominal pain, Abdominal distention, Constipation, Nausea, Vomiting, Coffee grounds emesis, Reflux/heartburn - Genitourinary Genitourinary: denies: Dysuria, Frequency, Urgency, Hematuria - Musculoskeletal Musculoskeletal: denies: Muscle pain, Back pain - Integumentary Integumentary: reports: Other (redness in left foot and distal left purvis) - Neurological Neurological: denies: General weakness, Focal weakness, Headache, Dizziness - Psychiatric Psychiatric: denies: Depression, Anxiety - Endocrine Endocrine: denies: Polyuria, Polydypsia - Hematologic/Lymphatic Hematologic/Lymphatic: denies: Anemia, Bruising, Petechiae Prior Level of Functionality: He is independent of activities of daily living Exam - Physical Exam General Appearance: positive: No acute distress, Alert Eyes Bilateral: positive: PERRL, EOMI ENT: positive: No signs of dehydration Neck: positive: No JVD, Trachea midline Respiratory: positive: Chest non-tender, No respiratory distress, Breath sounds nml. negative: Wheezes, Rales, Rhonchi Cardiovascular: positive: No murmur, Irregularly irregular. negative: Tachycardia Abdomen: positive: Non-tender, No organomegaly, Nml bowel sounds, Other (protube rant abdomen). negative: Guarding, Rebound Back: positive: Nml inspection Skin: positive: Other (redness in the distal half of left purvis, redness on left foot on lateral left corner. Wound on the left lateral plantar area) Extremities: positive: No pedal edema, Other (mild tendernes to touch of left foot no sensation in the plantar surface ofleft foot right bka) Neurologic/Psychiatric: positive: Oriented x3, Mood/affect nml Conclusion/Plan - Problem List (1) Cellulitis of left foot Conclusion/Plan: Blood cultures drawn. Patient started on vancomycin. (2) Diabetic foot ulcer Conclusion/Plan: Concerning for osteomyelitis. Patient sees Dr. Ziggy Lawson at the wound clinic. The left foot has a sinus tract with malodorous drainage X-ray of the left foot pending. ESR and CRP pending. Blood cultures obtained. Patient started on vancomycin. We will consult orthopedics in the morning. Qualifiers: Diabetic foot ulcer location: midfoot Diabetes mellitus type: type 2 Laterality: left Non-pressure ulcer stage: with bone involvement without evidence of necrosis Qualified Code(s): E11.621 - Type 2 diabetes mellitus with foot ulcer; L97.426 - Non-pressure chronic ulcer of left heel and midfoot with bone involvement without evidence of necrosis (3) Atrial fibrillation Conclusion/Plan: On metoprolol succinate 25 mg p.o. daily. On Coumadin 5 mg p.o. daily. (4) Uncontrolled type 2 diabetes mellitus Conclusion/Plan: Patient is on Metformin 1000 mg p.o. twice daily. We will hold for now. Sliding scale insulin ordered before every meal and at bedtime. Hemoglobin A1c ordered. Qualifiers: Glycemic state: with hyperglycemia Qualified Code(s): E11.65 - Type 2 diabetes mellitus with hyperglycemia (5) Hypertension Conclusion/Plan: On metoprolol succinate 25 mg p.o. daily and hydrochlorothiazide 12.5 mg p.o. daily. Patient also takes Lasix 80 mg p.o. daily (6) Hyperlipidemia Conclusion/Plan: On atorvastatin 40 mg p.o. every afternoon (7) CHF (congestive heart failure) Conclusion/Plan: Not in exacerbation. On metoprolol succinate 25 mg p.o. daily, Lasix 80 mg p.o. daily. - Lab Results Fish Bones: 11/16/20 12:59 11/16/20 12:59 Core Measures - Anticipated LOS I expect patient to be DC'd or transferred within 96 hours.: Yes - DVT/VTE - Prophylaxis VTE/DVT Device ordered at admit?: Yes VTE/DVT Prophylaxis med ordered at admit?: Yes
[2020-11-16 13:07] LABS: BASOPHILS # (AUTO) 0.1 10^3/uL (0.0-0.1); BASOPHILS % (AUTO) 0.5 %; EOSINOPHILS # (AUTO) 0.1 10^3/uL (0.0-0.7); EOSINOPHILS % (AUTO) 1.4 %; HCT - HEMATOCRIT 44.8 % (42.0-52.0); HGB - HEMOGLOBIN 14.5 g/dL (14.0-18.0); LYMPHOCYTES # (AUTO) 1.6 10^3/uL (1.5-3.5); LYMPHOCYTES % (AUTO) 15.8 %; MEAN CORPUSCULAR HEMOGLOBIN 28.2 pg (27.0-31.0); MEAN CORPUSCULAR HGB CONC 32.4 g/dL (32.0-36.0); MEAN CORPUSCULAR VOLUME 87.2 fL (80.0-94.0); MEAN PLATELET VOLUME 11.4 fL (7.4-11.4); MONOCYTES # (AUTO) 0.6 10^3/uL (0.0-1.0); MONOCYTES % (AUTO) 6.2 %; NEUTROPHILS # (AUTO) 7.5 10^3/uL (1.5-6.6); NEUTROPHILS % (AUTO) 75.6 %; PLT - PLATELET COUNT 143 10^3/uL (130-450); RED BLOOD COUNT 5.14 10^6/uL (4.70-6.10); WHITE BLOOD COUNT 9.9 x10^3/uL (4.8-10.8)
[2020-11-16 13:17] LABS: CALCIUM 8.9 mg/dL (8.5-10.3); CREATININE 1.1 mg/dL (0.6-1.2); POTASSIUM 3.4 mmol/L (3.5-5.0)
[2020-11-16] MEDS: INSULIN ASPART 300 UNIT/3 ML PEN SUBQ SCH ×3 (13:24→20:49)
[2020-11-16 13:30] LABS: INR 3.7 (0.8-1.2); PT - PROTHROMBIN TIME 37.9 secs (9.9-12.6)
[2020-11-16 13:52] LABS: ESTIMATED AVERAGE GLUCOSE 229 mg/dL (70-100); HEMOGLOBIN A1c% 9.6 % (4.27-6.07)
--- NOTE | 2020-11-16 14:25 | PHARMACY PROGRESS NOTE ---
- Therapy Status Vancomycin regimen day #: 1 Therapy status: Awaiting steady state Basis for treatment: Empirical Treatment indication: Osteomyelitis Trough goal: 15-20 - AMBER Risk Risk level for Acute Kidney Injury: High Acute Kidney Injury risk factors: Wt >100kg or BMI >40, Goal trough >15, Diabetes - Monitoring and Recommendation Clinical response to treatment: I&O Previous 24 hours 11/14/20 11/15/20 11/16/20 23:59 23:59 23:59 Intake Total 300 Balance 300 Lab Results 11/16/20 12:59 BUN 17 Creatinine 1.1 Estimated GFR (MDRD) 66 L Based on patient's weight and indication for vancomycin, will give 3 gm loading dose x 1 Estimated t1/2 for patient is around 11-12 hours Will initiate maintenance dose of 1500 mg q12h for an estimated trough of 15.2 Monitoring plan: Daily serum creatinine, Suggest ongoing fluid replacement Areas for additional monitoring: IV to PO when appropriate, Therapy de- escalation based on culture results
--- NOTE | 2020-11-16 14:55 | XRAY Report ---
PROCEDURE: Foot 3 View LT INDICATIONS: redness and drainage. concern for osteo TECHNIQUE: 3 views of the foot were acquired. COMPARISON: Prior 06/02/2020 similar foot plain films reviewed. FINDINGS: Bones: No fractures or dislocations but there is evidence of prior osteomyelitis involving the left foot with amputation beyond the MTP joints at all 5 rays, with maintenance of the MT head at the firs t and second rays. There hasn't been a somewhat subtle but definite interval increase in ostial lysis involving the third distal amputation margin at the distal third metatarsal diaphysis.. No suspicio us bony lesions. Soft tissues: No tibiotalar joint effusion. Achilles tendon appears normal. IMPRESSION: Multiple prior amputations at the forefoot, definite progression of ostial lysis at the distal margin of the remaining third metatarsal diaphysis. This is in reference to the comparison study from 06/02. Reviewed by: Basilio Barfield MD on 11/16/2020 2:53 PM PDT Approved by: Basilio Barfield MD on 11/16/2020 2:53 PM PDT Station ID: [id number]
--- NOTE | 2020-11-16 14:58 | PHARMACY PROGRESS NOTE ---
- Best Possible Medication History Admit Date and Time: 11/16/20 1206 Processed by: Pharmacy Medication History completed: Yes Patient Interview: Completed Secondary Source(s): Pharmacy records, Insurance records As the person ultimately responsible for medication therapy, providers are able to order a medication from an existing home medication list in [facility] via the "Reconcile Routine" prior to Confirmation of that medication by application support developer. Such practice is discouraged except when the physician, in their clinical judgment, deems that a medical need exists for a medication without regard to previous use.
[2020-11-16] MEDS ORDERED: VANCOMYCIN INJ 3 GM in SODIUM CHLORIDE 0.9% 500 ML IV ONE (15:00)
[2020-11-16] MEDS: oxyCODONE 5 MG TABLET PO PRN ×2 (15:00→20:49)
[2020-11-16] MEDS: SODIUM CHLORIDE FLUSH 0.9% 10 ML SYRINGE IVP SCH (16:30)
[2020-11-16] MEDS ORDERED: ATORVASTATIN 40 MG TABLET PO SCH (21:00)
[2020-11-17] MEDS: SODIUM CHLORIDE FLUSH 0.9% 10 ML SYRINGE IVP SCH ×2 (00:05→08:13)
[2020-11-17] MEDS ORDERED: VANCOMYCIN INJ 1 GM, VANCOMYCIN INJ 500 MG in SODIUM CHLORIDE 0.9% 500 ML IV SCH (03:00)
[2020-11-17] MEDS: oxyCODONE 5 MG TABLET PO PRN ×2 (03:12→09:03)
[2020-11-17 05:03] LABS: BASOPHILS % (AUTO) 0.4 %; EOSINOPHILS # (AUTO) 0.2 10^3/uL (0.0-0.7); EOSINOPHILS % (AUTO) 2.1 %; HCT - HEMATOCRIT 42.3 % (42.0-52.0); LYMPHOCYTES % (AUTO) 12.6 %; MEAN CORPUSCULAR HEMOGLOBIN 28.6 pg (27.0-31.0); MEAN CORPUSCULAR HGB CONC 33.1 g/dL (32.0-36.0); MEAN CORPUSCULAR VOLUME 86.5 fL (80.0-94.0); MEAN PLATELET VOLUME 11.5 fL (7.4-11.4); MONOCYTES # (AUTO) 0.5 10^3/uL (0.0-1.0); MONOCYTES % (AUTO) 6.3 %; NEUTROPHILS # (AUTO) 6.2 10^3/uL (1.5-6.6); NEUTROPHILS % (AUTO) 78.1 %; PLT - PLATELET COUNT 144 10^3/uL (130-450); RED BLOOD COUNT 4.89 10^6/uL (4.70-6.10)
[2020-11-17 05:09] LABS: INR 3.8 (0.8-1.2); PT - PROTHROMBIN TIME 38.6 secs (9.9-12.6)
[2020-11-17 05:18] LABS: CALCIUM 8.2 mg/dL (8.5-10.3); CRP - C-REACTIVE PROTEIN 8.5 mg/dL (0-1.0); POTASSIUM 3.3 mmol/L (3.5-5.0)
[2020-11-17] MEDS: INSULIN ASPART 300 UNIT/3 ML PEN SUBQ SCH (08:06)
[2020-11-17 08:20] VITALS: BP 146/62
--- NOTE | 2020-11-17 08:39 | DISCHARGE SUMMARY ---
Discharge Summary Admit Date: 11/16/20 Discharge Date: 11/17/20 Discharging Provider: Cristal Garces Primary Care Provider: Doron Bosch Code Status: Attempt Resuscitation Condition at Discharge: Stable Discharge Disposition: 01 Home, Self Care - DIAGNOSES Admission Diagnoses: Cellulitis of left foot Diabetic foot ulcer Atrial fibrillation Uncontrolled type 2 diabetes mellitus Hypertension Hyperlipidemia CHF Discharge Diagnoses with Status of Each Condition: Cellulitis of left foot: Augmentin ordered Diabetic foot ulcer: Chronic. To follow with orthopedics outpatient Atrial fibrillation: Chronic. Stable Uncontrolled type 2 diabetes mellitus: Chronic HgA1c 9.6 Hypertension: Chronic. Stable Hyperlipidemia: Chronic. CHF: Chronic - HPI History of Present Illness: Per HPI: Patient is a 70-year-old male with medical history significant for chronic atrial fibrillation on Coumadin, poorly controlled diabetes mellitus, history of osteomyelitis of the right ankle status post right BKA, right axillary vein clot, hypertension, CHF and sleep apnea who was admitted to the hospital as a direct admit from the wound clinic. He is nonadherent to care plan and does not always follow-up with the wound clinic when scheduled. He sees Dr. Ziggy Lawson for wound care. At evaluation today it was noted that he has a draining sinus which tracts and can be probed to bone on the left foot. He reports that the left foot has had a malodorous drainage for a few months now. He has had previous transmetatarsal amputation on the left foot. At time of presentation to the wound clinic it was erythematous and warm to touch, with associated pain. He also has redness just proximal to the left a nkle. As a result he was presented for admission for further work-up and treatment. At bedside he is resting comfortably. He denies chest pain, dyspnea, abdominal pain, nausea, vomiting, fever or chills. Patient was treated with vancomycin IV in the course of his hospital stay. Blood cultures were obtained. Blood cultures were no growth to date by the time of discharge. There was no drainage noted from the wound site and the cause of the patient's hospital stay. There was no progression in redness. He could not have an MRI done due to having a pacemaker and also having metal in him. An MRI showed multiple prior amputations at the forefoot, definite progression of osteolysis at the distal margin of the remaining third metatarsal diaphysis. I discussed the findings with Dr. Cloud of orthopedic who recommended discharging the patient on oral antibiotics to follow-up with him in the outpatient clinic in a week. Augmentin 875/125 mg 1 tablet p.o. twice daily x10 days was ordered. Patient's hemoglobin A1c was 9.6. Nutrition consult was ordered for the purpose of educating him on appropriate food choices. And is to follow-up with his primary care physician to discuss the possibility of starting a long-acting insulin for better blood glucose control. - ALLERGIES Allergies/Adverse Reactions: Allergies Allergy/AdvReac Type Severity Reaction Status Date / Time silver Allergy Mild Rash Verified 06/20/20 12:58 [From [employer] Mesh] carvedilol Allergy Unknown Anxiety Verified 06/20/20 12:58 Sulfa (Sulfonamide Allergy Unknown unknown Verified 06/20/20 12:58 Antibiotics) hydrochlorothiazide Allergy Rash Verified 06/20/20 12:58 - MEDICATIONS Home Medications: Ambulatory Orders Medication Instructions Recorded Confirmed Furosemide [Lasix] 80 mg PO DAILY 12/01/12 11/16/20 Warfarin Sodium [Coumadin] 5 mg PO DAILY 12/01/12 11/16/20 Oxycodone HCl 10 mg PO . 09/06/15 11/16/20 Atorvastatin Calcium 40 mg PO QPM 05/31/20 11/16/20 DULoxetine [Cymbalta] 60 mg PO DAILY 05/31/20 11/16/20 metFORMIN [Glucophage] 1,000 mg PO BID 05/31/20 11/16/20 Metoprolol Succinate [Toprol Xl] 25 mg PO DAILY 11/16/20 11/16/20 Amox/Clav 875/125 [Augmentin 1 tablet PO Q12H 10 Days #20 tablet 11/17/20 875/125 Tab] - PHYSICAL EXAM AT DISCHARGE General Appearance: positive: No acute distress, Alert Eyes Bilateral: positive: PERRL, EOMI ENT: positive: No signs of dehydration Neck: positive: No JVD, Trachea midline Respiratory: positive: Chest non-tender, No respiratory distress, Breath sounds nml. negative: Wheezes, Rales, Rhonchi Cardiovascular: positive: Irregularly irregular Abdomen: positive: Non-tender, No organomegaly, Nml bowel sounds, Other (protuberant abdomen). negative: Guarding, Rebound Skin: positive: No rash (hyperemic on anterior distal tibial area) Extremities: positive: Non-tender, Other (right bka. Diabetic ulcer on plantar surface of left foot. left transmetatarsal amputation) Neurologic/Psychiatric: positive: Oriented x3, Mood/affect nml - LABS Result Diagrams: 11/17/20 04:25 11/17/20 04:25 - TIME SPENT Time Spent in Discharge (Minutes): 20
[2020-11-17] MEDS ORDERED: FUROSEMIDE 40 MG TABLET PO SCH (09:00)
[2020-11-17] MEDS ORDERED: DULoxetine 30 MG CAPSULE PO SCH (09:00)
[2020-11-17] MEDS ORDERED: ENOXAPARIN 40 MG/0.4 ML SYRINGE SUBQ SCH (09:00)
[2020-11-17] MEDS ORDERED: METOPROLOL SUCCINATE 25 MG TABLET PO SCH (09:00)
--- NOTE | 2020-11-17 09:22 | Discharge Plan ---
Discharge Plan Problem Reviewed?: Yes Disposition: Home, Self Care Condition: Stable Prescriptions: Amox/Clav 875/125 [Augmentin 875/125 Tab] 1 tablet PO Q12H 10 Days #20 tablet Diet: Diabetic Activity Restrictions: Activity as Tolerated Health Concerns: You were admitted for concern about left lower extremity cellulitis and a diabetic left foot ulcer concerning for osteomyelitis. You were treated with vancomycin for 24 hours. An MRI of the foot could not be done because of metal. You were placed on Augmentin upon discharge for 10 days. You are to follow-up with Dr. Cloud the orthopedic surgeon in the outpatient clinic in 1 week. You will continue to follow with the wound clinic as scheduled. Your hemoglobin A1c was 9.6. You were seen by nutrition to offer education on food choices. Follow-up with your primary care physician to discuss the possibility of starting Lantus for better blood glucose control. Plan of Treatment: You were admitted for concern about left lower extremity cellulitis and a diabetic left foot ulcer concerning for osteomyelitis. You were treated with vancomycin for 24 hours. An MRI of the foot could not be done because of metal. You were placed on Augmentin upon discharge for 10 days. You are to follow-up with Dr. Cloud the orthopedic surgeon in the outpatient clinic in 1 week. You will continue to follow with the wound clinic as scheduled. Your hemoglobin A1c was 9.6. You were seen by nutrition to offer education on food choices. Follow-up with your primary care physician to discuss the possibility of starting Lantus for better blood glucose control. Care Goals: You were admitted for concern about left lower extremity cellulitis and a diabetic left foot ulcer concerning for osteomyelitis. You were treated with vancomycin for 24 hours. An MRI of the foot could not be done because of metal. You were placed on Augmentin upon discharge for 10 days. You are to follow-up with Dr. Cloud the orthopedic surgeon in the outpatient clinic in 1 week. You will continue to follow with the wound clinic as scheduled. Your hemoglobin A1c was 9.6. You were seen by nutrition to offer education on food choices. Follow-up with your primary care physician to discuss the possibility of starting Lantus for better blood glucose control. Assessment: You were admitted for concern about left lower extremity cellulitis and a diabetic left foot ulcer concerning for osteomyelitis. You were treated with vancomycin for 24 hours. An MRI of the foot could not be done because of metal. You were placed on Augmentin upon discharge for 10 days. You are to follow-up with Dr. Cloud the orthopedic surgeon in the outpatient clinic in 1 week. You will continue to follow with the wound clinic as scheduled. Your hemoglobin A1c was 9.6. You were seen by nutrition to offer education on food choices. Follow-up with your primary care physician to discuss the possibility of st arting Lantus for better blood glucose control. The above was explained to you and you expressed understanding and agreeable with the plan. Follow-Up Care: [facility] - Wound/Ostomy No Smoking: If you smoke, Please STOP! Call for help. Follow-up with: ANNAMARIA RUSSELL PA-C [Primary Care Provider] -
[2020-11-17] MEDS ORDERED: POTASSIUM CHLORIDE 20 MEQ TABLET PO ONE (10:06)
[2020-11-17] MEDS ORDERED: WARFARIN 5 MG TABLET PO SCH (14:00)
== END 2020-11-17 10:30 | disposition home or self-care (01) | DRG 603 ==
LOC: MS2 12:06
PROVIDERS: ADMIT Internal Medicine; ATTEND Internal Medicine
DX: L03.116 Cellulitis of left lower limb (principal); L97.426 Non-pressure chronic ulcer of left heel and midfoot with bone involvement without evidence of necrosis; I48.20 Chronic atrial fibrillation, unspecified; E11.621 Type 2 diabetes mellitus with foot ulcer; E11.65 Type 2 diabetes mellitus with hyperglycemia; Z79.84 Long term (current) use of oral hypoglycemic drugs; Z79.01 Long term (current) use of anticoagulants; I11.0 Hypertensive heart disease with heart failure; I50.9 Heart failure, unspecified; E78.5 Hyperlipidemia, unspecified; Z89.511 Acquired absence of right leg below knee; G47.30 Sleep apnea, unspecified; Z91.19 Patient's noncompliance with other medical treatment and regimen; E11.42 Type 2 diabetes mellitus with diabetic polyneuropathy
CPT/HCPCS: 36415; 73630; 80048; 83036; 85025; 85610; 85651; 86140; 87040; A9270; J3370

== ENCOUNTER 2020-12-13 08:00 | Outpatient (CLI) | payer MEDICARE, MEDICAID | END 2020-12-13 23:59 | disposition home or self-care (01) | LOC: LAB.R 08:00 | PROVIDERS: ATTEND Physician Assistant | DX: N39.0 Urinary tract infection, site not specified (principal); R30.0 Dysuria | CPT/HCPCS: 81002; 87086; 87181 ==

== ENCOUNTER 2021-01-17 13:10 | Outpatient (CLI) | payer MEDICARE, MEDICAID | END 2021-01-17 23:59 | disposition home or self-care (01) | LOC: LAB.S 13:10 | PROVIDERS: ATTEND Physician Assistant | DX: N39.0 Urinary tract infection, site not specified (principal); E11.40 Type 2 diabetes mellitus with diabetic neuropathy, unspecified; R30.0 Dysuria | CPT/HCPCS: 81002; 87086; 87181 ==

== ENCOUNTER 2021-01-29 14:46 | Outpatient (CLI) | payer MEDICARE, MEDICAID | END 2021-01-29 14:47 | disposition home or self-care (01) | LOC: LAB.S 14:46 | PROVIDERS: ATTEND Physician Assistant | DX: I48.20 Chronic atrial fibrillation, unspecified (principal); Z79.01 Long term (current) use of anticoagulants | CPT/HCPCS: 85610 ==

== ENCOUNTER 2021-06-05 11:50 | Outpatient (CLI) | payer MEDICARE, MEDICAID ==
[2021-06-05 15:49] LABS: BILIRUBIN,URINE NEGATIVE (NEGATIVE); GLUCOSE, URINE (UA) >=1000 mg/dL (NEGATIVE); KETONES,URINE (UA) NEGATIVE (NEGATIVE); LEUKOCYTE ESTERASE, URINE SMALL (NEGATIVE); NITRITE,URINE POSITIVE (NEGATIVE); OCCULT BLOOD,URINE LARGE (NEGATIVE); PROTEIN,URINE 100 mg/dL (NEGATIVE); UROBILINOGEN,URINE 0.2 (NORMAL) E.U./dL (NORMAL)
[2021-06-05 15:58] LABS: CLARITY,URINE CLOUDY (CLEAR)
[2021-06-05 16:05] LABS: BACTERIA,URINE Few /HPF (None Seen); SQUAMOUS EPITHELIAL CELL,UR NONE SEEN (<= Few)
== END 2021-06-05 23:59 | disposition home or self-care (01) ==
LOC: LAB 11:50
PROVIDERS: ATTEND Emergency Medicine
DX: N39.0 Urinary tract infection, site not specified (principal); R39.15 Urgency of urination
CPT/HCPCS: 81001; 87086

== ENCOUNTER 2021-08-01 08:00 | Outpatient (CLI) | payer MEDICARE, MEDICAID | END 2021-08-01 23:59 | disposition home or self-care (01) | LOC: LAB.S 08:00 | PROVIDERS: ATTEND Emergency Medicine | DX: L03.019 Cellulitis of unspecified finger (principal) | CPT/HCPCS: 87070; 87077; 87181; 87205 ==

== ENCOUNTER 2021-09-28 08:00 | Outpatient (CLI) | payer MEDICARE, MEDICAID ==
[2021-09-28 21:14] LABS: BILIRUBIN,URINE NEGATIVE (NEGATIVE); GLUCOSE, URINE (UA) >=1000 mg/dL (NEGATIVE); KETONES,URINE (UA) NEGATIVE (NEGATIVE); LEUKOCYTE ESTERASE, URINE NEGATIVE (NEGATIVE); NITRITE,URINE NEGATIVE (NEGATIVE); OCCULT BLOOD,URINE LARGE (NEGATIVE); PH,URINE 5.5 PH (5.0-7.5); PROTEIN,URINE 100 mg/dL (NEGATIVE); UROBILINOGEN,URINE 0.2 (NORMAL) E.U./dL (NORMAL)
[2021-09-28 21:36] LABS: BACTERIA,URINE Rare /HPF (None Seen); CLARITY,URINE CLEAR (CLEAR); EPITHELIAL CELLS,UR FEW Transitional /HPF (<= Few); SQUAMOUS EPITHELIAL CELL,UR FEW Squamous (<= Few); WBC CLUMPS,URINE PRESENT
== END 2021-09-28 23:59 | disposition home or self-care (01) ==
LOC: LAB 08:00
PROVIDERS: ATTEND Emergency Medicine
DX: N41.0 Acute prostatitis (principal)
CPT/HCPCS: 81001; 87086

== ENCOUNTER 2021-10-02 08:00 | Outpatient (CLI) | payer MEDICARE, MEDICAID ==
[2021-10-02 20:14] LABS: BASOPHILS # (AUTO) 0.1 10^3/uL (0.0-0.1); BASOPHILS % (AUTO) 0.8 %; EOSINOPHILS # (AUTO) 0.1 10^3/uL (0.0-0.7); EOSINOPHILS % (AUTO) 1.5 %; HCT - HEMATOCRIT 53.7 % (42.0-52.0); HGB - HEMOGLOBIN 17.9 g/dL (14.0-18.0); LYMPHOCYTES # (AUTO) 1.5 10^3/uL (1.5-3.5); LYMPHOCYTES % (AUTO) 23.3 %; MEAN CORPUSCULAR HGB CONC 33.3 g/dL (32.0-36.0); MEAN CORPUSCULAR VOLUME 86.9 fL (80.0-94.0); MEAN PLATELET VOLUME 12.4 fL (7.4-11.4); MONOCYTES # (AUTO) 0.4 10^3/uL (0.0-1.0); MONOCYTES % (AUTO) 5.9 %; NEUTROPHILS # (AUTO) 4.4 10^3/uL (1.5-6.6); NEUTROPHILS % (AUTO) 67.1 %; PLT - PLATELET COUNT 155 10^3/uL (130-450); RED BLOOD COUNT 6.18 10^6/uL (4.70-6.10); RED CELL DISTRIBUTION WIDTH 16.5 % (12.0-15.0); WHITE BLOOD COUNT 6.6 x10^3/uL (4.8-10.8)
[2021-10-02 20:31] LABS: ALBUMIN 3.7 g/dL (3.2-5.5); ALBUMIN/GLOBULIN RATIO 1.1 (1.0-2.2); ALKALINE PHOSPHATASE 98 IU/L (42-121); ALT ALANINE AMINOTRANSFERASE 21 IU/L (10-60); AST ASPARTATE AMINOTRANSFERASE 22 IU/L (10-42); BILIRUBIN,TOTAL 1.5 mg/dL (0.2-1.0); BUN - BLOOD UREA NITROGEN 15 mg/dL (6-20); CALCIUM 8.6 mg/dL (8.5-10.3); CARBON DIOXIDE - CO2 25 mmol/L (21-32); CHLORIDE 98 mmol/L (101-111); CHOL/HDL RATIO 6.2 (<5.0); CHOLESTEROL 298 mg/dL; GFR - MDRD 74 (>89); GLUCOSE 383 mg/dL (70-100); HDL CHOLESTEROL 48 mg/dL; LDL CHOLESTEROL,CALCULATED 196 mg/dL; LDL/HDL RATIO 4.1 (<3.6); POTASSIUM 3.7 mmol/L (3.5-5.0); SODIUM 134 mmol/L (135-145); TOTAL PROTEIN 7.2 g/dL (6.7-8.2); TRIGLYCERIDES 270 mg/dL; VLDL CHOLESTEROL 54 mg/dL
[2021-10-02 20:32] LABS: PARTIAL THROMBOPLASTIN TIME 41.8 secs (24.9-33.3)
[2021-10-02 20:40] LABS: INR 1.8 (0.8-1.2); PT - PROTHROMBIN TIME 20.1 secs (9.9-12.6)
[2021-10-02 20:42] LABS: THYROID STIMULATING HORMONE 2.08 uIU/mL (0.34-5.60)
[2021-10-02 20:53] LABS: FOLATE 12.86 ng/mL (5.90 - >24.8)
[2021-10-02 21:00] LABS: ESTIMATED AVERAGE GLUCOSE 321 mg/dL (70-100); HEMOGLOBIN A1c% 12.8 % (4.27-6.07)
== END 2021-10-02 23:59 ==
LOC: LAB.S 08:00
PROVIDERS: ATTEND Registered Nurse
DX: I13.0 Hypertensive heart and chronic kidney disease with heart failure and stage 1 through stage 4 chronic kidney disease, or unspecified chronic kidney disease (principal); E11.22 Type 2 diabetes mellitus with diabetic chronic kidney disease; N18.4 Chronic kidney disease, stage 4 (severe); I50.9 Heart failure, unspecified; E11.40 Type 2 diabetes mellitus with diabetic neuropathy, unspecified; E78.5 Hyperlipidemia, unspecified; I48.20 Chronic atrial fibrillation, unspecified
CPT/HCPCS: 36415; 80053; 80061; 82607; 82746; 83036; 83721; 84443; 85025; 85610; 85730

== ENCOUNTER 2022-01-09 13:46 | Outpatient (CLI) | payer MEDICARE ==
--- NOTE | 2022-01-09 17:52 | Ultrasound Report ---
PROCEDURE: Retroperitoneal INDICATIONS: RECURRENT UTI TECHNIQUE: Real-time scanning was performed of the kidneys and bladder, with image documentation. COMPARISON: 05/22/2018 FINDINGS: Kidneys: Kidneys are normal in size. Right kidney measures 12.2 cm long; left kidney measures 13.1 cm long. Right renal cortical thickness is 1.4 cm; left renal cortical thickness is 1.4 cm. Renal c ortical echotexture is normal. No hydronephrosis or nephrolithiasis. No suspicious solid mass lesio ns. Bladder: Pre-void bladder volume is 197.2 mL. Post-void residual is 103.4 mL. Pre-void images demo nstrate no intraluminal masses or stones. On pre-void images, bilateral ureteral jets are noted with color Doppler interrogation. (Of note, ureteral jets may not be detectable in up to 25% of cases du e to insufficient differences in specific gravity between ureteral and bladder urine). Prostate: Large, 4.3 x 4.0 x 4.1 cm. Miscellaneous: No free pelvic fluid. IMPRESSION: 1. Normal-sized kidneys with no evidence of hydronephrosis. 2. Enlarged prostate. 3. Post void residual is 103.4 mL. Reviewed by: Alvin Watson MD on 01/09/2022 5:51 PM PDT Approved by: Alvin Watson MD on 01/09/2022 5:51 PM PDT Station ID: [id number]
== END 2022-01-09 13:47 | disposition home or self-care (01) ==
LOC: DI 13:46
PROVIDERS: ATTEND Registered Nurse
DX: N39.0 Urinary tract infection, site not specified (principal); N40.0 Benign prostatic hyperplasia without lower urinary tract symptoms

== ENCOUNTER 2022-01-25 13:04 | Inpatient (IN) | payer MEDICARE ==
[2022-01-25 14:30] LABS: BASOPHILS % (AUTO) 0.4 %; EOSINOPHILS % (AUTO) 0.3 %; HCT - HEMATOCRIT 46.5 % (42.0-52.0); HGB - HEMOGLOBIN 15.5 g/dL (14.0-18.0); LYMPHOCYTES % (AUTO) 10.7 %; MEAN CORPUSCULAR HEMOGLOBIN 30.1 pg (27.0-31.0); MEAN CORPUSCULAR HGB CONC 33.3 g/dL (32.0-36.0); MEAN CORPUSCULAR VOLUME 90.3 fL (80.0-94.0); MEAN PLATELET VOLUME 11.8 fL (7.4-11.4); MONOCYTES # (AUTO) 0.6 10^3/uL (0.0-1.0); MONOCYTES % (AUTO) 6.1 %; NEUTROPHILS # (AUTO) 7.6 10^3/uL (1.5-6.6); NEUTROPHILS % (AUTO) 81.6 %; PLT - PLATELET COUNT 159 10^3/uL (130-450); RED BLOOD COUNT 5.15 10^6/uL (4.70-6.10); RED CELL DISTRIBUTION WIDTH 13.2 % (12.0-15.0); WHITE BLOOD COUNT 9.3 x10^3/uL (4.8-10.8)
[2022-01-25 15:02] LABS: CALCIUM 8.6 mg/dL (8.5-10.3); CREATININE 1.3 mg/dL (0.6-1.2); CRP - C-REACTIVE PROTEIN 19.6 mg/dL (0-1.0)
--- NOTE | 2022-01-25 15:10 | XRAY Report ---
PROCEDURE: Foot 3 View LT INDICATIONS: Foot infection TECHNIQUE: 3 views of the foot were acquired. COMPARISON: 11/16/2020 FINDINGS: Bones: No acute fractures or dislocations. There are postsurgical changes from amputation of the lef t foot at the level of the metatarsal shafts of the third through fifth metatarsals, second metatarso phalangeal joint, and first metatarsophalangeal joint. Interval postsurgical changes with further res ection/" of the third metatarsal to the level of the mid shaft. Interval periosteal reaction of the d istal and proximal margins of the third metatarsal. There is suggestion of increased lucency surround ing the head of the second metatarsal. Also, increased subcortical lucency involving the head of the first metatarsal. Soft tissues: No tibiotalar joint effusion. Achilles tendon appears normal. Overlying soft tissue edema. IMPRESSION: Interval postsurgical change with further resection of the third metatarsal to the level of the mid s haft. Interval development of periosteal reaction surrounding the cortex and distal margin of the thi rd metatarsal. This may represent reactive changes of osseous healing. Concurrent infection not exclu ded. Stable postsurgical changes from prior amputation of the fourth and fifth rays at the level of the mi d metatarsal shaft as well as amputation of the first and second toes at the level of the tarsophalan geal joints. However, increased subcortical lucency and possible cortical erosion involving the head of the first and second metatarsal. This may represent underlying osteomyelitis given reported histor y for persistent infection. Reviewed by: Emir Presley MD on 01/25/2022 3:08 PM PDT Approved by: Emir Presley MD on 01/25/2022 3:08 PM PDT Station ID: [id number]
[2022-01-25] MEDS ORDERED: SODIUM CHLORIDE 0.9% 1,000 ML IV STA (16:14)
[2022-01-25] MEDS ORDERED: oxyCODONE 5 MG TABLET PO STA (16:15)
[2022-01-25] MEDS ORDERED: INSULIN REGULAR HUMAN 100 UNIT/1 ML 10 ML MDV IVP STA ×2 (16:15→18:06)
--- NOTE | 2022-01-25 16:17 | ED Physician Documentation ---
PD HPI WOUND RECHECK - Stated complaint Stated Complaint: LT FOOT PX - Chief complaint Chief Complaint: Wound - Histroy obtained from History obtained from: Patient - Additional information Additional information: 71-year-old gentleman with uncontrolled diabetes, he was unable to fill his insulin due to insurance issues. 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 He still smokes. Over the last week and a half or so he has developed a wound at the distal part of the left foot where he is already had some amputations that has become foul-smelling. He denies fevers or chills. He went to the walk-in clinic and was referred here for further evaluation and treatment. Review of Systems Ten Systems: 10 systems reviewed and negative Constitutional: denies: Fever, Chills Cardiac: denies: Chest pain / pressure, Palpitations Respiratory: denies: Dyspnea, Cough PD PAST MEDICAL HISTORY - Past Medical History Cardiovascular: Congestive heart failure, Hypertension, High cholesterol, Deep vein thrombosis (axillary vein assoc with PICC line), Atrial fibrillation Respiratory: Sleep apnea Neuro: Peripheral neuropathy Endocrine/Autoimmune: Type 2 diabetes GI: Hepatitis : Benign prostate hypertrophy, Renal insuffiency HEENT: Chronic hearing loss Psych: Depression Musculoskeletal: Chronic back pain (followed in pain clinic in [place]) Derm: None - Past Surgical History Past Surgical History: Yes Ortho: Amputation (right BKA; all toes left foot) Cardiovascular: AICD - Present Medications Home Medications: Ambulatory Orders Medication Instructions Recorded Confirmed Furosemide [Lasix] 80 mg PO DAILY 12/01/12 11/17/20 Warfarin Sodium [Coumadin] 5 mg PO DAILY 12/01/12 11/17/20 Oxycodone HCl 10 mg PO . 09/06/15 11/17/20 Atorvastatin Calcium 40 mg PO QPM 05/31/20 11/17/20 DULoxetine [Cymbalta] 60 mg PO DAILY 05/31/20 11/17/20 metFORMIN [Glucophage] 1,000 mg PO BID 05/31/20 11/17/20 Metoprolol Succinate [Toprol Xl] 25 mg PO DAILY 11/16/20 11/17/20 - Allergies Allergies/Adverse Reactions: Allergies Allergy/AdvReac Type Severity Reaction Status Date / Time silver Allergy Mild Rash Verified 01/25/22 13:52 [From Tegaderm AG Mesh] carvedilol Allergy Unknown Anxiety Verified 01/25/22 13:52 Sulfa (Sulfonamide Allergy Unknown unknown Verified 01/25/22 13:52 Antibiotics) hydrochlorothiazide Allergy Rash Verified 01/25/22 13:52 - Social History Does the pt smoke?: Yes Smoking Status: Current every day smoker Does the pt drink ETOH?: No Does the pt have substance abuse?: No - Immunizations Immunizations are current?: Yes - POLST Patient has POLST: No POLST Status: Full Code PD ED PE NORMAL - Vitals Vital signs reviewed: Yes - General General: Alert and oriented X 3, No acute distress - HEENT HEENT: PERRL, EOMI - Neck Neck: Supple, no meningeal sign, No bony TTP - Cardiac Cardiac: RRR, No murmur - Respiratory Respiratory: No respiratory distress, Clear bilaterally - Abdomen Abdomen: Normal bowel sounds, Soft, Non tender - Derm Derm: Normal color, Warm and dry - Extremities Extremities: Other (He is status post right BKA. The left foot has sequela of prior amputations of multiple phalanges and raise. There is a very large u lcerated wound over the distal middle of the foot with necrotic material in it and a foul smell with cellulitis above the ankle.) - Neuro Neuro: Alert and oriented X 3, Normal speech Results - Vitals Vitals: Vital Signs - 24 hr 01/25/22 13:47 Temperature 36.6 C Heart Rate 100 Respiratory 16 Rate Blood Pressure 151/86 H O2 Saturation 99 Oxygen O2 Source [With Activity] Room air O2 Source Room air - Labs Labs: Laboratory Tests 01/25/22 01/25/22 01/25/22 14:23 14:23 14:27 WBC 9.3 RBC 5.15 Hgb 15.5 Hct 46.5 MCV 90.3 MCH 30.1 MCHC 33.3 RDW 13.2 Plt Count 159 MPV 11.8 H Neut # (Auto) 7.6 H Lymph # (Auto) 1.0 L Grady # (Auto) 0.6 Eos # (Auto) 0.0 Baso # (Auto) 0.0 Absolute Nucleated RBC 0.00 Nucleated RBC % 0.0 ESR PT 14.9 H INR 1.3 H Sodium 125 L Potassium 4.0 Chloride 89 L Carbon Dioxide 22 Anion Gap 14.0 H BUN 22 H Creatinine 1.3 H Estimated GFR (MDRD) 55 L Glucose 859 H* Calcium 8.6 C-Reactive Protein 19.6 H 01/25/22 14:27 WBC RBC Hgb Hct MCV MCH MCHC RDW Plt Count MPV Neut # (Auto) Lymph # (Auto) Grady # (Auto) Eos # (Auto) Baso # (Auto) Absolute Nucleated RBC Nucleated RBC % ESR 12 PT INR Sodium Potassium Chloride Carbon Dioxide Anion Gap BUN Creatinine Estimated GFR (MDRD) Glucose Calcium C-Reactive Protein PD MEDICAL DECISION MAKING - ED course ED course: XR L foot: IMPRESSION: Interval postsurgical change with further resection of the third metatarsal to the level of the mid shaft. Interval development of periosteal reaction surrounding the cortex and distal margin of the third metatarsal. This may represent reactive changes of osseous healing. Concurrent infection not excluded. Stable postsurgical changes from prior amputation of the fourth and fifth rays at the level of the mid metatarsal shaft as well as amputation of the first and second toes at the level of the tarsophalangeal joints. However, increased subcortical lucency and possible cortical erosion involving the head of the first and second metatarsal. This may represent underlying osteomyelitis given reported history for persistent infection. 71-year-old gentleman comes in with uncontrolled diabetes and with a foul- smelling necrotic foot wound on the left foot. Note that he has already had a right BKA. He is afebrile and well-appearing, but labs show significant hyperglycemia and elevated CRP with normal white count and sed rate. Blood cultures will be sent. I discussed the case by phone with Dr. Kenton Cloud who will consult, but is pessimistic about the viability of the foot in the long- term. Call to the hospitalist, Dr. Rod for admission at 4:29 PM. She cannot currently take my call but I asked her to call me back. Subsequently spoke with Dr. Rod for admission at 4:33 PM, note due to hospital capacity issues there will be a delay to admission. Departure - Departure Disposition: 66 [facility] DC/Xfer Clinical Impression: Osteomyelitis of foot, left, acute, Anticoagulant long-term use Uncontrolled type 2 diabetes mellitus Qualifiers: Glycemic state: with hyperglycemia Qualified Code(s): E11.65 - Type 2 diabetes mellitus with hyperglycemia Condition: Serious
[2022-01-25] MEDS ORDERED: VANCOMYCIN INJ 2 GM in SODIUM CHLORIDE 0.9% 500 ML IV STA (16:19)
[2022-01-25] MEDS ORDERED: CIPROFLOXACIN 400 MG/200 ML 400 MG/200 ML BAG IV STA (16:19)
[2022-01-25 16:20] LABS: INR 1.3 (0.8-1.2); PT - PROTHROMBIN TIME 14.9 secs (9.9-12.6)
[2022-01-25 18:17] LABS: B. PARAPERTUSSIS- RESP PCR PAN NOT DETECTED; B. PERTUSSIS- RESP PCR PANEL NOT DETECTED; C. PNEUMONIAE- RESP PCR PANEL NOT DETECTED; CORONAVIRUS 229E-RESP PCR NOT DETECTED; CORONAVIRUS HKU1-RESP PCR NOT DETECTED; CORONAVIRUS NL63-RESP PCR NOT DETECTED; CORONAVIRUS OC43-RESP PCR NOT DETECTED; HUMAN METAPNEUMOVIRUS NOT DETECTED; INFLUENZA A- RESP PCR PANEL NOT DETECTED; INFLUENZA B - RESP PCR PANEL NOT DETECTED; M. PNEUMONIAE- RESP PCR PANEL NOT DETECTED; PARAINFLUENZA VIRUS 1 NOT DETECTED; PARAINFLUENZA VIRUS 2 NOT DETECTED; PARAINFLUENZA VIRUS 3 NOT DETECTED; PARAINFLUENZA VIRUS 4 NOT DETECTED; RHINOVIRUS/ENTEROVIRUS NOT DETECTED; RSV- RESP PCR PANEL NOT DETECTED; SARS-CoV-2 -RESP PCR PANEL NOT DETECTED
[2022-01-25 19:12] LABS: ALBUMIN 2.9 g/dL (3.2-5.5); BILIRUBIN,DIRECT 0.2 mg/dL (0.1-0.5)
[2022-01-25] MEDS: oxyCODONE 5 MG TABLET PO PRN ×2 (19:32→23:32)
[2022-01-25] MEDS: ACETAMINOPHEN 325 MG TABLET PO PRN ×2 (19:33→23:32)
--- NOTE | 2022-01-25 19:59 | HISTORY & PHYSICAL EXAMINATION ---
Chief Complaint - Chief Complaint Chief Complaint: increased malodorous drainage from left foot wound History of Present Illness - Admitted From Admitted From:: [facility] ED - History Obtained From Records Reviewed: yes History obtained from: patient - History of Present Illness HPI Comment/Other: Is a 70-year-old male with medical history significant for chronic atrial fibrillation on Coumadin, poorly controlled diabetes mellitus, history of osteomyelitis of the right ankle status post right BKA, right axillary vein clot, hypertension, CHF and sleep apnea who presented to the ED with complaint of increased malodorous drainage and pain from his chronic left foot wound. He noticed this last night. He denied fever. In the ED the wound was noted to be draining and malodorous. Work-up included CRP which was significantly elevated and x-ray of the foot indicated osteomyelitis. Lactic acid was 3.5. He was also noted to have a blood glucose of 859. The patient states that he has not taken insulin for several months due to problems with his insurance and being able to afford it. Orthopedic surgeon was consulted and is agreeable to see the patient in consult. He was presented for admission for continued treatment. At bedside he is resting comfortably. He denies chest pain or dyspnea currently. No abdominal pain, nausea or vomiting. History - Past Medical History Cardiovascular: reports: Congestive heart failure, Hypertension, High cholesterol, Deep vein thrombosis (axillary vein assoc with PICC line), Atrial fibrillation Respiratory: reports: Sleep apnea Neuro: reports: Peripheral neuropathy Endocrine/Autoimmune: reports: Type 2 diabetes GI: reports: Hepatitis : reports: Benign prostate hypertrophy, Renal insuffiency HEENT: reports: Chronic hearing loss Psych: reports: Depression Musculoskeletal: reports: Chronic back pain (followed in pain clinic in [place]) Derm: reports: None MRSA Hx?: No - Past Surgical History Ortho: reports: Amputation (right BKA; all toes left foot) Cardiovascular: reports: AICD - Family & Social History Family History Comment/Other: Extensive family history for diabetes Social History Notes: He does not smoke or use recreational substances - Substance History Use: Uses substance without health or social issues: Alcohol - POLST Patient has POLST: No POLST Status: Full Code Meds/Allgy - Home Medications Home Medications: Ambulatory Orders Medication Instructions Recorded Confirmed Furosemide [Lasix] 80 mg PO DAILY 12/01/12 11/17/20 Warfarin Sodium [Coumadin] 5 mg PO DAILY 12/01/12 11/17/20 Oxycodone HCl 10 mg PO . 09/06/15 11/17/20 Atorvastatin Calcium 40 mg PO QPM 05/31/20 11/17/20 DULoxetine [Cymbalta] 60 mg PO DAILY 05/31/20 11/17/20 metFORMIN [Glucophage] 1,000 mg PO BID 05/31/20 11/17/20 Metoprolol Succinate [Toprol Xl] 25 mg PO DAILY 11/16/20 11/17/20 - Allergies Allergies/Adverse Reactions: Allergies Allergy/AdvReac Type Severity Reaction Status Date / Time silver Allergy Mild Rash Verified 01/25/22 13:52 [From [email or web address] AG Mesh] carvedilol Allergy Unknown Anxiety Verified 01/25/22 13:52 Sulfa (Sulfonamide Allergy Unknown unknown Verified 01/25/22 13:52 Antibiotics) hydrochlorothiazide Allergy Rash Verified 01/25/22 13:52 Review of Systems - Constitutional Constitutional: denies: Fatigue, Fever, Chills - Eyes Eyes: denies: Pain, Dipolpia - Ears, Nose & Throat Ears, Nose & Throat: denies: Ear pain - Cardiovascular Cariovascular: reports: Irregular heart rate. denies: Chest pain, Edema - Respiratory Respiratory: denies: Cough, Wheezing, SOB at rest, SOB with exertion - Gastrointestinal Gastrointestinal: reports: Abdominal distention (obese abdomen). denies: Abdominal pain, Nausea, Vomiting, Coffee grounds emesis - Genitourinary Genitourinary: denies: Dysuria, Frequency, Urgency, Hematuria - Musculoskeletal Musculoskeletal: denies: Muscle pain, Back pain, Muscle aches - Integumentary Integumentary: reports: Other (chronic left foot wound with necrotic area at the site of previous toe amputation). denies: Rash - Neurological Neurological: denies: General weakness, Focal weakness, Headache - Psychiatric Psychiatric: denies: Depression, Anxiety - Endocrine Endocrine: reports: Polyuria, Polydypsia - Hematologic/Lymphatic Hematologic/Lymphatic: denies: Anemia, Bruising Prior Level of Functionality: He mainly uses his wheelchair to get around. He is fairly independent of activities of daily living. However his ability to get around without the wheelchair is limited because he cannot tolerate his prosthesis device. Exam - Vital Signs Vital Signs: Vital Signs x48h Temp Pulse Pulse Resp BP BP Pulse Ox 01/25/22 19:34 36.6 C 82 19 147/83 H 97 01/25/22 16:37 77 16 155/88 H 96 01/25/22 13:47 36.6 C 100 16 151/86 H 99 - Physical Exam General Appearance: positive: No acute distress, Alert, Mild distress Eyes Bilateral: positive: PERRL, EOMI ENT: positive: Dry mucous membranes Neck: positive: No JVD, Trachea midline Respiratory: positive: Chest non-tender, No respiratory distress, Breath sounds nml. negative: Wheezes, Rales, Rhonchi Cardiovascular: positive: Irregularly irregular. negative: Tachycardia Abdomen: positive: Non-tender, Nml bowel sounds, Other (obese abdomen). negative: Guarding, Rebound Back: positive: Nml inspection Skin: positive: Other (left leg hyperemic to midshin. Blister on dorsal surface of left foot. Tip of left foot at side of previous toe amputation appears n ecrotic) Extremities: positive: No pedal edema, Other (right BKA. eft leg hyperemic to midshin. Blister on dorsal surface of left foot. Tip of left foot at side of previous toe amputation appears necrotic) Neurologic/Psychiatric: positive: Oriented x3 Sepsis Event Note (H) - Evaluation Possible source of Sepsis: positive: Bone/Joint, Skin/soft tissue - Sepsis Criteria Sepsis Criteria: Metabolic: lactate > 2 mmol/L Conclusion/Plan - Problem List (1) Osteomyelitis of foot, left, acute Conclusion/Plan: X-ray of the left foot was indicated of of osteomyelitis. CRP was elevated at 19.6. Lactic acid 3.5. Patient was started on Vancomycin and Cipro. Will continue antibiotics with Vancomycin and Zosyn. Will discontinue Cipro. IV hydration with normal saline at 100 mL/h. Wound and blood cultures pending. Dr. Kenton Cloud with orthopedic surgery consulted and agreeable to see the patient in consult. (2) Uncontrolled type 2 diabetes mellitus Conclusion/Plan: Patient's blood glucose at presentation was 859. Patient is nonadherent to diabetic medications. High-dose sliding scale insulin ordered. IV hydration with normal saline. Lantus 15 units subcu q. at bedtime. Hemoglobin A1c pending. Qualifiers: Glycemic state: with hyperglycemia Qualified Code(s): E11.65 - Type 2 diabetes mellitus with hyperglycemia (3) Cellulitis of left foot Conclusion/Plan: Patient was started on Vancomycin and Cipro. Will continue antibiotics with Vancomycin and Zosyn. Will discontinue Cipro. IV hydration with normal saline at 100 mL/h. Wound and blood cultures pending. (4) Atrial fibrillation Conclusion/Plan: On metoprolol succinate 25 mg p.o. daily. Coumadin 7.5 mg p.o. daily. Will check INR. (5) CHF (congestive heart failure) Conclusion/Plan: Metoprolol succinate 25 mg p.o. daily. Lasix held while hydrating patient. (6) Hyperlipidemia Conclusion/Plan: Atorvastatin 40 mg p.o. nightly. (7) Hypertension Conclusion/Plan: On metoprolol succinate and Lasix. (8) Pre-op evaluation Conclusion/Plan: Owing to patient's age and medical comorbidities of uncontrolled diabetes, peripheral vascular disease, CHF, atrial fibrillation, history of smoking, hypertension patient has overall higher risk than average. EKG showed atrial fibrillation with PVCs. There is no significant change from previous EKG on 05/22/2018. Patient is currently optimized pending improvement in blood glucose levels. His risk of serious complication is 33.3% when compared to average risk of serious complication of 19.4%. Risk of any complication is 39.9% as opposed to the average risk of 22.2. Risk of cardiac complication 4.7% in comparison to average risk of 2.0. Risk of pneumonia 4.7% in comparison to 1.8. - Lab Results Fish Bones: 01/25/22 14:27 01/25/22 14:23 Core Measures - DVT/VTE - Prophylaxis VTE/DVT Prophylaxis med ordered at admit?: Yes
[2022-01-25] MEDS ORDERED: WARFARIN 2.5 MG TABLET PO ONE ×2 (20:00→20:12)
[2022-01-25] MEDS: SODIUM CHLORIDE 0.9% 1,000 ML IV SCH (20:18)
[2022-01-25] MEDS: INSULIN ASPART 300 UNIT/3 ML PEN SUBQ SCH (20:18)
[2022-01-25] MEDS: INSULIN GLARGINE 300 UNIT/3 ML PEN SUBQ SCH (20:19)
[2022-01-25] MEDS ORDERED: INSULIN ASPART 300 UNIT/3 ML PEN SUBQ SCH (21:00)
[2022-01-25] MEDS: PIPERACILLIN/TAZOBACTAM 3.375 GM in SODIUM CHLORIDE 0.9% MINIBAG 100 ML IV SCH (21:22)
[2022-01-25] MEDS: ATORVASTATIN 40 MG TABLET PO SCH (21:22)
[2022-01-25] MEDS: diphenhydrAMINE 25 MG CAPSULE PO PRN (23:31)
[2022-01-25] MEDS: SODIUM CHLORIDE FLUSH 0.9% 10 ML SYRINGE IVP SCH (23:32)
[2022-01-26] MEDS: PIPERACILLIN/TAZOBACTAM 3.375 GM in SODIUM CHLORIDE 0.9% MINIBAG 100 ML IV SCH ×2 (05:14→13:08)
[2022-01-26] MEDS: SODIUM CHLORIDE 0.9% 1,000 ML IV SCH ×2 (05:14→16:42)
[2022-01-26] MEDS: oxyCODONE 5 MG TABLET PO PRN ×4 (05:17→18:56)
[2022-01-26] MEDS: ACETAMINOPHEN 325 MG TABLET PO PRN (05:17)
[2022-01-26] MEDS ORDERED: VANCOMYCIN INJ 1.5 GM in SODIUM CHLORIDE 0.9% 500 ML IV SCH ×2 (06:00→09:00)
[2022-01-26 06:07] LABS: BASOPHILS % (AUTO) 0.6 %; EOSINOPHILS # (AUTO) 0.1 10^3/uL (0.0-0.7); EOSINOPHILS % (AUTO) 1.6 %; HCT - HEMATOCRIT 43.5 % (42.0-52.0); HGB - HEMOGLOBIN 14.6 g/dL (14.0-18.0); LYMPHOCYTES # (AUTO) 1.3 10^3/uL (1.5-3.5); LYMPHOCYTES % (AUTO) 18.8 %; MEAN CORPUSCULAR HEMOGLOBIN 29.9 pg (27.0-31.0); MEAN CORPUSCULAR HGB CONC 33.6 g/dL (32.0-36.0); MEAN CORPUSCULAR VOLUME 89.1 fL (80.0-94.0); MEAN PLATELET VOLUME 11.6 fL (7.4-11.4); MONOCYTES # (AUTO) 0.6 10^3/uL (0.0-1.0); NEUTROPHILS # (AUTO) 4.8 10^3/uL (1.5-6.6); PLT - PLATELET COUNT 147 10^3/uL (130-450); RED BLOOD COUNT 4.88 10^6/uL (4.70-6.10); RED CELL DISTRIBUTION WIDTH 13.1 % (12.0-15.0); WHITE BLOOD COUNT 6.9 x10^3/uL (4.8-10.8)
[2022-01-26 06:13] LABS: INR 1.5 (0.8-1.2); PT - PROTHROMBIN TIME 16.4 secs (9.9-12.6)
[2022-01-26 06:28] LABS: ALBUMIN 2.9 g/dL (3.2-5.5); CALCIUM 8.4 mg/dL (8.5-10.3); CRP - C-REACTIVE PROTEIN 16.6 mg/dL (0-1.0); MAGNESIUM 1.9 mg/dL (1.7-2.8); PHOSPHORUS 3.1 mg/dL (2.5-4.6); POTASSIUM 3.1 mmol/L (3.5-5.0)
[2022-01-26] MEDS ORDERED: POTASSIUM CHLORIDE 20 MEQ TABLET PO ONE (06:53)
[2022-01-26] MEDS ORDERED: MAGNESIUM SULFATE 2 GRAM 2 GM/50 ML BAG IV ONE (06:55)
[2022-01-26] MEDS: INSULIN ASPART 300 UNIT/3 ML PEN SUBQ SCH ×4 (07:57→21:19)
[2022-01-26] MEDS: DULoxetine 30 MG CAPSULE PO SCH (08:48)
[2022-01-26] MEDS: METOPROLOL SUCCINATE 25 MG TABLET PO SCH (08:48)
[2022-01-26] MEDS: SODIUM CHLORIDE FLUSH 0.9% 10 ML SYRINGE IVP SCH ×2 (08:49→17:06)
[2022-01-26] MEDS ORDERED: ENOXAPARIN 40 MG/0.4 ML SYRINGE SUBQ SCH (09:00)
--- NOTE | 2022-01-26 09:31 | PHARMACY PROGRESS NOTE ---
- Best Possible Medication History Admit Date and Time: 01/25/22 184 Processed by: Pharmacy Medication History completed: Yes Patient Interview: Pt unable to participate Secondary Source(s): Physician records, Pharmacy records, Insurance records As the person ultimately responsible for medication therapy, providers are able to order a medication from an existing home medication list in [facility] via the "Reconcile Routine" prior to Confirmation of that medication by ground support agent. Such practice is discouraged except when the physician, in their clinical judgment, deems that a medical need exists for a medication without regard to previous use.
[2022-01-26] MEDS: VANCOMYCIN INJ 1 GM, VANCOMYCIN INJ 500 MG in SODIUM CHLORIDE 0.9% 500 ML IV SCH ×2 (10:30→21:14)
--- NOTE | 2022-01-26 11:02 | CONSULTATION NOTE ---
Referring Provider Name of Referring Provider:: Dr. Melgar, hospitalists Consult Date: 01/26/22 Chief Complaint - Chief Complaint Chief Complaint: Redness, swelling and drainage from left foot History of Present Illness - Admitted From Admitted From:: Emergency room - History Obtained From Records Reviewed: Yes History obtained from: Patient Exam Limitations: Not the best historian - History of Present Illness HPI Comment/Other: This is a 71-year-old gentleman with a history of obesity, nicotine abuse, chronic opioid use in the past, poorly controlled diabetes mellitus, history of right below-knee amputation 3 years ago and now problems with previous t ransmetatarsal amputation of left foot. He has had breakdown to the forefoot of the left foot in the past that healed with offloading but never return for follow-up to my office a year ago approximately. He sees the local prosthetists/roof bolter operator who had made diabetic inserts with diabetic shoes. He tried these recently and attributes the breakdown to the left foot from the shoes and poor sensation of left foot. He cannot afford medications to treat his diabetes, has neuropathy. He is not her regular prosthetic user to the right leg because of problems with stump breakdown. He does not do much in the way of significant ambulation, mostly at home indoors. He has help of a girlfriend. He has a history of anxiety and depression. He rather not live if he have to have another below-knee amputation to left leg. He also has a history of hypertension and sleep apnea. He has a history of atrial fibrillation, congestive heart failure, Coumadin anticoagulation and previous history of renal failure. History - Past Medical History Cardiovascular: reports: Congestive heart failure, Hypertension, High cholesterol, Deep vein thrombosis (axillary vein assoc with PICC line), Atrial fibrillation Respiratory: reports: Sleep apnea Neuro: reports: Peripheral neuropathy Endocrine/Autoimmune: reports: Type 2 diabetes GI: reports: Hepatitis : reports: Benign prostate hypertrophy, Renal insuffiency HEENT: reports: Chronic hearing loss Psych: reports: Depression Musculoskeletal: reports: Chronic back pain (followed in pain clinic in [place]) Derm: reports: None MRSA Hx?: No - Past Surgical History Ortho: reports: Amputation (right BKA; all toes left foot) Cardiovascular: reports: AICD - Family & Social History Family History Comment/Other: Extensive family history for diabetes Social History Notes: He does not smoke or use recreational substances - Substance History Use: Uses substance without health or social issues: Alcohol - POLST Patient has POLST: No POLST Status: Full Code Meds/Allgy - Home Medications Home Medications: Ambulatory Orders Medication Instructions Recorded Confirmed Furosemide [Lasix] 80 mg PO DAILY 12/01/12 01/26/22 Warfarin Sodium [Coumadin] 5 mg PO DAILY 12/01/12 01/26/22 Atorvastatin Calcium 40 mg PO QPM 05/31/20 01/26/22 Metoprolol Succinate [Toprol Xl] 25 mg PO BID 11/16/20 01/26/22 Dulaglutide [Trulicity] 0.75 mg SUBQ Q7D 01/26/22 01/26/22 Duloxetine HCl [Cymbalta] 60 mg PO DAILY 01/26/22 01/26/22 Insulin Glargine,Hum.rec.anlog 13 unit SUBQ QPM 01/26/22 01/26/22 [Basaglar Kwikpen U-100] Metformin HCl [Metformin ER 1,000 mg PO DAILY 01/26/22 01/26/22 Osmotic] Tamsulosin [Flomax] 0.4 mg PO DAILY 01/26/22 01/26/22 - Allergies Allergies/Adverse Reactions: Allergies Allergy/AdvReac Type Severity Reaction Status Date / Time silver Allergy Mild Rash Verified 01/25/22 13:52 [From [employer]] carvedilol Allergy Unknown Anxiety Verified 01/25/22 13:52 Sulfa (Sulfonamide Allergy Unknown unknown Verified 01/25/22 13:52 Antibiotics) hydrochlorothiazide Allergy Rash Verified 01/25/22 13:52 Exam - Vital Signs Vital Signs: Vital Signs x48h Temp Pulse Resp BP Pulse Ox 01/26/22 07:19 36.6 C 82 16 139/90 H 96 01/26/22 05:00 36.5 C 94 18 128/74 96 - Physical Exam Comments/Other: He is alert and fully oriented, increased body mass index. The left foot has had a previous transmetatarsal amputation. There is full-thickness necrotic tissue and breakdown measuring about 6 cm in diameter over the lateral metatarsal heads and plantar foot. There is surrounding erythema and edema to the foot and lower extremity. There is no sign of abscess but there is a hemorrhagic 2 cm blister over the dorsal medial aspect of the left foot. There is no sign of necrotizing fasciitis. He has poor sensation to his foot, no acute ischemia. The necrotic full- thickness eschar was sharply debrided. There was small amount of connective tissue overlying the metatarsal heads. There is no overt osteomyelitis or abscess. The ulcer seem to have relatively good blood supply and bled well with sharp stimulation of scalpel. Xeroform, sterile gauze mild compression dressing was applied to the left foot. There is no gross pus at the ulcer site but this is the obvious source of his infection. Conclusion and Plan - Lab Results Laboratory Results 01/26/22 07:16: POC Whole Bld Glucose 302 H 01/26/22 07:04: Lactic Acid 1.0 01/26/22 05:32: PT 16.4 H, INR 1.5 H 01/26/22 05:32: WBC 6.9, RBC 4.88, Hgb 14.6, Hct 43.5, MCV 89.1, MCH 29.9, MCHC 33.6, RDW 13.1, Plt Count 147, MPV 11.6 H, Neut # (Auto) 4.8, Lymph # (Auto) 1.3 L, [place] # (Auto) 0.6, Eos # (Auto) 0.1, Baso # (Auto) 0.0, Absolute Nucleated RBC 0.00, Nucleated RBC % 0.0 01/26/22 05:32: Sodium 137, Potassium 3.1 L, Chloride 104, Carbon Dioxide 24, Anion Gap 9.0, BUN 19, Creatinine 1.0, Estimated GFR (MDRD) 74 L, Glucose 283 H, Calcium 8.4 L, Phosphorus 3.1, Magnesium 1.9, C-Reactive Protein 16.6 H, Albumin 2.9 L 01/25/22 23:59: POC Whole Bld Glucose 344 H 01/25/22 19:11: POC Whole Bld Glucose 479 H 01/25/22 18:56: Lactic Acid 2.5 H 01/25/22 17:15: Nasal Adenovirus (PCR) NOT DETECTED, Nasal B. parapertussis DNA (PCR) NOT DETECTED, Nasal Coronavir 229E PCR NOT DETECTED, Nasal Coronavir HKU1 PCR NOT DETECTED, Nasal Coronavir NL63 PCR NOT DETECTED, Nasal Coronavir OC43 PCR NOT DETECTED, Nasal Enterovir/Rhinovir PCR NOT DETECTED, Nasal Influenza B PCR NOT DETECTED, Nasal Influenza A PCR NOT DETECTED, Nasal Parainfluen 1 PCR NO T DETECTED, Nasal Parainfluen 2 PCR NOT DETECTED, Nasal Parainfluen 3 PCR NOT DETECTED, Nasal Parainfluen 4 PCR NOT DETECTED, Nasal RSV (PCR) NOT DETECTED, Nasal B.pertussis DNA PCR NOT DETECTED, Nasal C.pneumoniae (PCR) NOT DETECTED, Billy Human Metapneumo PCR NOT DETECTED, Nasal M.pneumoniae (PCR) NOT DETECTED, Nasal SARS-CoV-2 (PCR) NOT DETECTED 01/25/22 16:32: Lactic Acid 3.5 H* 01/25/22 14:35: Total Bilirubin 1.0, Direct Bilirubin 0.2, AST 19, ALT 17, Alkaline Phosphatase 107, Total Protein 7.0, Albumin 2.9 L, Globulin 4.1 01/25/22 14:27: ESR 12 01/25/22 14:27: WBC 9.3, RBC 5.15, Hgb 15.5, Hct 46.5, MCV 90.3, MCH 30.1, MCHC 33.3, RDW 13.2, Plt Count 159, MPV 11.8 H, Neut # (Auto) 7.6 H, Lymph # (Auto) 1.0 L, [place] # (Auto) 0.6, Eos # (Auto) 0.0, Baso # (Auto) 0.0, Absolute Nucleated RBC 0.00, Nucleated RBC % 0.0 01/25/22 14:23: PT 14.9 H, INR 1.3 H 01/25/22 14:23: Sodium 125 L, Potassium 4.0, Chloride 89 L, Carbon Dioxide 22, Anion Gap 14.0 H, BUN 22 H, Creatinine 1.3 H, Estimated GFR (MDRD) 55 L, Glucose 859 H*, Calcium 8.6, C-Reactive Protein 19.6 H - Diagnostic Imaging Results Diagnostic Imaging Results: negative: Read contemporaneously (Left foot x-rays independently visualized. There are postsurgical changes, asymmetric transmetatarsal has been performed with relatively long first and second metatarsals, short third fourth and fifth metatarsals. There is no clear-cut evidence of osteomyelitis.) - Plan Plan: Diabetic foot infection left foot creating cellulitis and full-thickness necrosis ulceration at the amputation site The full-thickness ulcer has been debrided, sterile dressing applied, continue local wound care antibiotics, systemic treatment including control of his elevated blood sugars. I discussed with him, that it it would be a low chance but I possibility that foot salvage can occur but most likely this will eventually require revision of his transmetatarsal amputation and possible higher amputation at the below-knee level. If he is to consider foot salvage which still means a revision surgery, cigarette smoking sensation would need to be present, evaluation of circulatory status, control of diabetes and compliance to treatment would be necessary. I do not see any need for medical surgical intervention at this time but may need to be considered if infection can be brought under control and blood supply s eems satisfactory. He would also need to have much better glucose control and care of his diabetes. He is at obvious high risk for complications because of his multiple comorbidities.
[2022-01-26] MEDS: WARFARIN 5 MG TABLET PO SCH (13:36)
--- NOTE | 2022-01-26 13:47 | PROVIDER PROGRESS NOTE ---
Assessment/Plan - Problem List (1) Osteomyelitis of foot, left, acute Assessment/Plan: X-ray of the left foot was indicated of of osteomyelitis. WBC normal but CRP was elevated at 19.6 and has decreased after starting iv antibx. Lactic acid 3.5 and has normalized. Patient was started on Vancomycin and Cipro. Will continue antibiotics with Vancomycin and Zosyn (for anaerobic coverage) and not Cipro. IV hydration with normal saline at 100 mL/h. Wound and blood cultures pending. Dr. Kenton Cloud with orthopedic surgery consulted and saw him today, he debrided the black skin, and recommended continue antibx, no immediate surgery. (2) N/V Conclusion/Plan: This started after he received antibiotics. There are no obvious allergy complaints however. The patient thinks it is from the antibiotics. He received iv Zofran. He may also have gastroparesis given the poorly controlled diabetes. Will monitor. Will adjust his diet for more easily digestible diet order. (3) Uncontrolled type 2 diabetes mellitus Conclusion/Plan: Patient's blood glucose at presentation was 859. Patient is nonadherent to diabetic medications (because of no script as changing doctors and/or Insurance non-coverage). Hemoglobin A1c is still pending from this morning. Lantus 15 units subcu q. at bedtime ordered. High-dose sliding scale insulin ordered. IV hydration with normal saline. Qualifiers: Glycemic state: with hyperglycemia Qualified Code(s): E11.65 - Type 2 diabetes mellitus with hyperglycemia (4) Cellulitis of left foot Conclusion/Plan: Patient was given Vancomycin and Cipro. Will continue antibiotics with Vancomycin and Zosyn (for anaerobic coverage) and not Cipro. IV hydration with normal saline at 100 mL/h. Wound and blood culture results pending. (5) Atrial fibrillation Conclusion/Plan: His HR is controlled, we are continuing him on metoprolol succinate 25 mg p.o. daily. Coumadin 5-7.5 mg p.o. daily. Target INR is 2-3. Will follow INR daily. (6) Hx of CHF (congestive heart failure) Conclusion/Plan: He is not in CHF exacerbation We are continueing his Metoprolol succinate 25 mg p.o. daily. Lasix held while hydrating patient. (7) Hyperlipidemia Conclusion/Plan: Atorvastatin 40 mg p.o. nightly continuing (8) Hypertension Conclusion/Plan: On metoprolol succinate and previously Lasix. (9) Morbid obesity with BMI 40-45 Conclusion/Plan: As per Hx. Will request a Talent Acquisition Partner consult. (10) Pre-op evaluation Conclusion/Plan: Owing to patient's age and medical comorbidities of uncontrolled diabetes, peripheral vascular disease, CHF, atrial fibrillation, history of smoking, hypertension patient has overall higher risk than average. EKG showed atrial fibrillation with PVCs. There is no significant change from previous EKG on 05/22/2018. Patient is currently optimized pending improvement in blood glucose levels. His risk of serious complication is 33.3% when compared to average risk of serious complication of 19.4%. Risk of any complication is 39.9% as opposed to the average risk of 22.2. Risk of cardiac complication 4.7% in comparison to average risk of 2.0. Risk of pneumonia 4.7% in comparison to 1.8. This information was discussed with the Orthopedic Surgeon, who said that he may need to be transferred to a facility with higher level of care, if the anesthesia risk is high. But surgery is not imminent, as per his consult, therefore will continue the patient's Coumadin. - Current Meds Current Meds: Current Medications Generic Name Dose Route Start Last Admin Trade Name Freq PRN Reason Stop Dose Admin Acetaminophen 650 mg 01/25/22 18:41 01/26/22 05:17 Acetaminophen 325 Mg Tablet PO 650 mg Q4HR PRN Administration Pain 1 to 4, or Fever Atorvastatin Calcium 40 mg 01/25/22 21:00 01/25/22 21:22 Atorvastatin 40 Mg Tablet PO 40 mg QPM [place] Administration Diphenhydramine HCl 50 mg 01/25/22 21:51 01/25/22 23:31 Diphenhydramine 25 Mg Capsule PO 50 mg QPM PRN Administration Insomnia Duloxetine HCl 60 mg 01/26/22 09:00 01/26/22 08:48 Duloxetine 30 Mg Capsule PO 60 mg DAILY [place] Administration Sodium Chloride 1,000 mls @ 100 mls/hr 01/25/22 19:00 01/26/22 05:14 Normal Saline 0.9% IV 100 mls/hr .Q10H [place] Administration Piperacillin Sod/Tazobactam 100 mls @ 25 mls/hr 01/25/22 21:00 01/26/22 13:08 Sod 3.375 gm/ Sodium Chloride IV 01/26/22 18:00 25 mls/hr Q8H [place] Administration Vancomycin HCl 1 gm/ 500 mls @ 250 mls/hr 01/26/22 10:00 01/26/22 10:30 Vancomycin HCl 500 mg/ Sodium IV 250 mls/hr Chloride Q12H [place] Administration Insulin Aspart 3 - 11 unit 01/25/22 21:00 01/26/22 11:58 Insulin Aspart 300 Unit/3 Ml Pen SUBQ 11 unit 0800,1200,1700,2100 [place] Administration Protocol Insulin Glargine 15 unit 01/25/22 21:00 01/25/22 20:19 Insulin Glargine 300 Unit/3 Ml Pen SUBQ 15 unit QPM [place] Administration Metoprolol Succinate 25 mg 01/26/22 09:00 01/26/22 08:48 Metoprolol Succinate 25 Mg Tablet PO 25 mg DAILY [place] Administration Oxycodone HCl 5 mg 01/25/22 18:41 01/26/22 13:16 Oxycodone 5 Mg Tablet PO 5 mg Q4HR PRN Administration Pain 5 to 7 Sodium Chloride 10 ml 01/26/22 01:00 01/26/22 08:49 Sodium Chloride Flush 0.9% 10 Ml Syringe IVP Not Given 0100,0900,1700 [place] Warfarin Sodium 5 mg 01/26/22 14:00 01/26/22 13:36 Warfarin 5 Mg Tablet PO 5 mg 1400 [place] Administration - Lab Result Fish Bone Diagrams: 01/26/22 05:32 01/26/22 05:32 - EKG Results EKG Interpreted Independently: Yes EKG Comparison: Unchanged from prior EKG EKG Findings: The admission EKG was done 01/25/2022 and it shows: A. fib with a PVC. Since the EKG from 06/01/2018, no significant change. - Diagnostic Imaging Results Diagnostic Imaging Results: Final report reviewed - Additional Planning My Orders: My Active Orders 01/25/22 Dinner Carb-controlled Diet [DIET] 01/25/22 18:41 Activity Orders [RC] Q2HR IO [RC] IOSHIFT Initiate Bowel Care Protocol [RC] .protocol Initiate Line Care Protocol [RC] QSHIFT Initiate Personal Care Protoco [RC] .protocol Oxygen Therapy [RC] .PRN Telemetry- [RC] Q4HR Vital Signs [RC] Q4HR Acetaminophen [Tylenol] 650 mg PO Q4HR PRN HYDROmorphone 0.5MG SYRINGE [Dilaudid 0.5MG Syringe] 0.5 mg IVP Q8H PRN Ondansetron Inj [Zofran Inj] 4 mg IVP Q6HR PRN Sodium Chloride Flush 0.9% [Normal Saline Flush 0.9%] 10 ml IVP PRN PRN oxyCODONE [Roxicodone] 5 mg PO Q4HR PRN Code Status [OTHERS] Routine Condition of Patient [OTHERS] Routine DVT Prophylaxis [OTHERS] Routine 01/25/22 18:43 IV Insert [RC] .ONCE 01/25/22 18:44 Orthopedics Consult [CONS] Routine 01/25/22 18:46 Initiate Hypoglycemia Protocol [RC] .protocol 01/25/22 19:00 Sodium Chloride 0.9% [Normal Saline 0.9%] 1,000 ml IV 100 mls/hr 01/25/22 21:00 Atorvastatin [Lipitor] 40 mg PO QPM 01/26/22 01:00 Sodium Chloride Flush 0.9% [Normal Saline Flush 0.9%] 10 ml IVP 0100,0900,1700 01/26/22 05:32 HEMOGLOBIN A1c% [CHEM] DAILYLAB 01/26/22 09:00 DULoxetine [Cymbalta] 60 mg PO DAILY Metoprolol Succinate [Toprol Xl] 25 mg PO DAILY 01/26/22 14:00 Warfarin [Coumadin] 5 mg PO 1400 01/27/22 05:00 BMP - BASIC METABOLIC PANEL [CHEM] DAILYLAB CBC - COMP BLD CT W/AUTO DIFF [HEME] DAILYLAB CRP - C-REACTIVE PROTEIN [CHEM] DAILYLAB PT WITH INR [COAG] DAILYLAB 01/28/22 05:00 BMP - BASIC METABOLIC PANEL [CHEM] DAILYLAB CBC - COMP BLD CT W/AUTO DIFF [HEME] DAILYLAB CRP - C-REACTIVE PROTEIN [CHEM] DAILYLAB PT WITH INR [COAG] DAILYLAB 01/29/22 05:00 BMP - BASIC METABOLIC PANEL [CHEM] DAILYLAB CBC - COMP BLD CT W/AUTO DIFF [HEME] DAILYLAB PT WITH INR [COAG] DAILYLAB Subjective - Subjective Patient Reports: Nausea (vomited clear gastric juices, had not eaten yet) Objective Vital Signs: Vital Signs - 24 hr 01/25/22 01/25/22 01/25/22 13:47 16:37 19:34 Temperature 36.6 C 36.6 C Heart Rate 100 77 Heart Rate [ 82 Brachial] Respiratory 16 16 19 Rate Blood Pressure 151/86 H 155/88 H Blood Pressure 147/83 H [Right Brachial artery] O2 Saturation 99 96 97 01/26/22 01/26/22 01/26/22 00:05 05:00 07:19 Temperature 36.6 C 36.5 C 36.6 C Heart Rate Heart Rate [ 81 94 82 Brachial] Respiratory 19 18 16 Rate Blood Pressure Blood Pressure 127/83 H 128/74 139/90 H [Right Brachial artery] O2 Saturation 95 96 96 01/26/22 12:18 Temperature 36.7 C Heart Rate Heart Rate [ 94 Brachial] Respiratory 18 Rate Blood Pressure Blood Pressure 143/67 H [Right Brachial artery] O2 Saturation 96 Oxygen O2 Source [With Activity] Room air O2 Source Room air I&O (Last 24 Hrs): Intake and Output Totals x24h 01/24/22 01/25/22 01/26/22 23:59 23:59 23:59 Intake Total 1900 1743.333 Output Total 450 2300 Balance 1450 -556.667 General: Alert, Oriented x3, Other (Obese) HEENT: Mucous membr. moist/pink Neck: Supple, Other (Obese and cannot eval JVP) Neuro: Alert Cardiovascular: Other (distant heart sounds due to obesity) Respiratory: No respiratory distress Extremities: Other (L foot bandaged, L purvis and foot have venous stasis, R LE has BKA) - Results Results: Laboratory Results WBC 6.9 x10^3/uL (4.8-10.8) 01/26/22 05:32 RBC 4.88 10^6/uL (4.70-6.10) 01/26/22 05:32 Hgb 14.6 g/dL (14.0-18.0) 01/26/22 05:32 Hct 43.5 % (42.0-52.0) 01/26/22 05:32 MCV 89.1 fL (80.0-94.0) 01/26/22 05:32 MCH 29.9 pg (27.0-31.0) 01/26/22 05:32 MCHC 33.6 g/dL (32.0-36.0) 01/26/22 05:32 RDW 13.1 % (12.0-15.0) 01/26/22 05:32 Plt Count 147 10^3/uL (130-450) 01/26/22 05:32 MPV 11.6 fL (7.4-11.4) H 01/26/22 05:32 Neut # (Auto) 4.8 10^3/uL (1.5-6.6) 01/26/22 05:32 Lymph # (Auto) 1.3 10^3/uL (1.5-3.5) L 01/26/22 05:32 [place] # (Auto) 0.6 10^3/uL (0.0-1.0) 01/26/22 05:32 Eos # (Auto) 0.1 10^3/uL (0.0-0.7) 01/26/22 05:32 Baso # (Auto) 0.0 10^3/uL (0.0-0.1) 01/26/22 05:32 Absolute Nucleated RBC 0.00 x10^3/uL 01/26/22 05:32 Nucleated RBC % 0.0 /100WBC 01/26/22 05:32 ESR 12 mm/Hr (0-20) 01/25/22 14:27 PT 16.4 secs (9.9-12.6) H 01/26/22 05:32 INR 1.5 (0.8-1.2) H 01/26/22 05:32 Sodium 137 mmol/L (135-145) 01/26/22 05:32 Potassium 3.1 mmol/L (3.5-5.0) L 01/26/22 05:32 Chloride 104 mmol/L (101-111) 01/26/22 05:32 Carbon Dioxide 24 mmol/L (21-32) 01/26/22 05:32 Anion Gap 9.0 (6-13) 01/26/22 05:32 BUN 19 mg/dL (6-20) 01/26/22 05:32 Creatinine 1.0 mg/dL (0.6-1.2) 01/26/22 05:32 Estimated GFR (MDRD) 74 (>89) L 01/26/22 05:32 Glucose 283 mg/dL (70-100) H 01/26/22 05:32 POC Whole Bld Glucose 370 mg/dL (70 - 100) H 01/26/22 11:08 Lactic Acid 1.0 mmol/L (0.5-2.2) 01/26/22 07:04 Calcium 8.4 mg/dL (8.5-10.3) L 01/26/22 05:32 Phosphorus 3.1 mg/dL (2.5-4.6) 01/26/22 05:32 Magnesium 1.9 mg/dL (1.7-2.8) 01/26/22 05:32 Total Bilirubin 1.0 mg/dL (0.2-1.0) 01/25/22 14:35 Direct Bilirubin 0.2 mg/dL (0.1-0.5) 01/25/22 14:35 AST 19 IU/L (10-42) 01/25/22 14:35 ALT 17 IU/L (10-60) 01/25/22 14:35 Alkaline Phosphatase 107 IU/L (42-121) 01/25/22 14:35 C-Reactive Protein 16.6 mg/dL (0-1.0) H 01/26/22 05:32 Total Protein 7.0 g/dL (6.7-8.2) 01/25/22 14:35 Albumin 2.9 g/dL (3.2-5.5) L 01/26/22 05:32 Globulin 4.1 g/dL (2.1-4.2) 01/25/22 14:35 Nasal Adenovirus (PCR) NOT DETECTED 01/25/22 17:15 Nasal B. parapertussis DNA (PCR) NOT DETECTED 01/25/22 17:15 Nasal Coronavir 229E PCR NOT DETECTED 01/25/22 17:15 Nasal Coronavir HKU1 PCR NOT DETECTED 01/25/22 17:15 Nasal Coronavir NL63 PCR NOT DETECTED 01/25/22 17:15 Nasal Coronavir OC43 PCR NOT DETECTED 01/25/22 17:15 Nasal Enterovir/Rhinovir PCR NOT DETECTED 01/25/22 17:15 Nasal Influenza B PCR NOT DETECTED 01/25/22 17:15 Nasal Influenza A PCR NOT DETECTED 01/25/22 17:15 Nasal Parainfluen 1 PCR NOT DETECTED 01/25/22 17:15 Nasal Parainfluen 2 PCR NOT DETECTED 01/25/22 17:15 Nasal Parainfluen 3 PCR NOT DETECTED 01/25/22 17:15 Nasal Parainfluen 4 PCR NOT DETECTED 01/25/22 17:15 Nasal RSV (PCR) NOT DETECTED 01/25/22 17:15 Nasal B.pertussis DNA PCR NOT DETECTED 01/25/22 17:15 Nasal C.pneumoniae (PCR) NOT DETECTED 01/25/22 17:15 Billy Human Metapneumo PCR NOT DETECTED 01/25/22 17:15 Nasal M.pneumoniae (PCR) NOT DETECTED 01/25/22 17:15 Nasal SARS-CoV-2 (PCR) NOT DETECTED 01/25/22 17:15 - Procedures Procedures: Procedures EXCIS DEBRIDE OF WOUND, INFECT, OR BURN (11/16/13) SERUM TRANSFUSION NEC (11/16/13) TOE AMPUTATION (03/18/14) VENOUS CATHETERIZATION NEC (12/08/14) Sepsis Event Note (H) - Evaluation Possible source of Sepsis: positive: Bone/Joint, Skin/soft tissue - Sepsis Criteria Sepsis Criteria: Metabolic: lactate > 2 mmol/L
[2022-01-26] MEDS: ONDANSETRON 4 MG/2 ML VIAL IVP PRN (13:54)
[2022-01-26] MEDS: ATORVASTATIN 40 MG TABLET PO SCH (21:14)
[2022-01-26] MEDS: INSULIN GLARGINE 300 UNIT/3 ML PEN SUBQ SCH (21:15)
[2022-01-26] MEDS ORDERED: INSULIN LISPRO 300 UNIT/3 ML PEN SUBQ STA (23:01)
[2022-01-27] MEDS: PIPERACILLIN/TAZOBACTAM 3.375 GM in SODIUM CHLORIDE 0.9% MINIBAG 100 ML IV SCH ×4 (00:06→17:19)
[2022-01-27] MEDS: METOCLOPRAMIDE 10 MG/2 ML VIAL IVP SCH ×4 (00:06→17:19)
[2022-01-27] MEDS: oxyCODONE 5 MG TABLET PO PRN ×5 (00:10→21:37)
[2022-01-27] MEDS: ACETAMINOPHEN 325 MG TABLET PO PRN ×5 (00:10→21:37)
[2022-01-27] MEDS: SODIUM CHLORIDE FLUSH 0.9% 10 ML SYRINGE IVP SCH ×3 (00:11→16:36)
[2022-01-27] MEDS: SODIUM CHLORIDE 0.9% 1,000 ML IV SCH ×3 (05:57→21:32)
[2022-01-27 06:56] LABS: BASOPHILS % (AUTO) 0.6 %; EOSINOPHILS # (AUTO) 0.1 10^3/uL (0.0-0.7); EOSINOPHILS % (AUTO) 1.8 %; HCT - HEMATOCRIT 43.2 % (42.0-52.0); HGB - HEMOGLOBIN 14.4 g/dL (14.0-18.0); LYMPHOCYTES # (AUTO) 1.5 10^3/uL (1.5-3.5); LYMPHOCYTES % (AUTO) 20.9 %; MEAN CORPUSCULAR HEMOGLOBIN 29.9 pg (27.0-31.0); MEAN CORPUSCULAR HGB CONC 33.3 g/dL (32.0-36.0); MEAN CORPUSCULAR VOLUME 89.8 fL (80.0-94.0); MEAN PLATELET VOLUME 11.2 fL (7.4-11.4); MONOCYTES # (AUTO) 0.6 10^3/uL (0.0-1.0); MONOCYTES % (AUTO) 7.8 %; NEUTROPHILS # (AUTO) 4.8 10^3/uL (1.5-6.6); NEUTROPHILS % (AUTO) 67.6 %; PLT - PLATELET COUNT 162 10^3/uL (130-450); RED BLOOD COUNT 4.81 10^6/uL (4.70-6.10); WHITE BLOOD COUNT 7.1 x10^3/uL (4.8-10.8)
[2022-01-27 07:00] LABS: INR 1.7 (0.8-1.2); PT - PROTHROMBIN TIME 18.6 secs (9.9-12.6)
[2022-01-27 07:10] LABS: CALCIUM 8.2 mg/dL (8.5-10.3); CREATININE 0.9 mg/dL (0.6-1.2); CRP - C-REACTIVE PROTEIN 10.2 mg/dL (0-1.0); POTASSIUM 3.6 mmol/L (3.5-5.0)
[2022-01-27] MEDS: INSULIN ASPART 300 UNIT/3 ML PEN SUBQ SCH ×4 (08:13→21:23)
[2022-01-27] MEDS: DULoxetine 30 MG CAPSULE PO SCH (08:13)
[2022-01-27] MEDS: METOPROLOL SUCCINATE 25 MG TABLET PO SCH (08:13)
[2022-01-27] MEDS: VANCOMYCIN INJ 1 GM, VANCOMYCIN INJ 500 MG in SODIUM CHLORIDE 0.9% 500 ML IV SCH ×2 (10:15→21:24)
[2022-01-27] MEDS: WARFARIN 5 MG TABLET PO SCH (13:54)
[2022-01-27] MEDS: HYDROmorphone 0.5 MG/0.5 ML SYRINGE IVP PRN (13:58)
--- NOTE | 2022-01-27 14:08 | PROVIDER PROGRESS NOTE ---
Subjective - General Admit Date: 01/25/22 - Other Other Information/Narrative: Patient is comfortable, no complaints about left foot Objective - Patient Data Vital Signs: Vital Signs x48h Temp Pulse Resp BP Pulse Ox 01/27/22 12:50 36.5 C 89 16 157/85 H 94 01/27/22 07:27 36.4 C L 76 16 127/75 96 Weight: Weight 01/25/22 01/26/22 01/27/22 23:59 23:59 23:59 Weight (kg) 152 kg Intake & Output: Intake and Output Totals x24h 01/25/22 01/26/22 01/27/22 23:59 23:59 23:59 Intake Total 1900 4221.667 2981.666 Output Total 450 2600 1000 Balance 1450 0453.736 6073.666 - Lab Results Lab Results: 01/27/22 06:45 01/27/22 06:45 Other Lab Results: Lab Results x24hrs 01/27/22 01/27/22 01/27/22 Range/Units 11:04 07:19 06:45 WBC (4.8-10.8) x10^3/uL RBC (4.70-6.10) 10^6/uL Hgb (14.0-18.0) g/dL Hct (42.0-52.0) % MCV (80.0-94.0) fL MCH (27.0-31.0) pg MCHC (32.0-36.0) g/dL RDW (12.0-15.0) % Plt Count (130-450) 10^3/uL MPV (7.4-11.4) fL Neut # (Auto) (1.5-6.6) 10^3/uL Lymph # (Auto) (1.5-3.5) 10^3/uL [place] # (Auto) (0.0-1.0) 10^3/uL Eos # (Auto) (0.0-0.7) 10^3/uL Baso # (Auto) (0.0-0.1) 10^3/uL Absolute Nucleated RBC x10^3/uL Nucleated RBC % /100WBC PT 18.6 H (9.9-12.6) secs INR 1.7 H (0.8-1.2) Sodium (135-145) mmol/L Potassium (3.5-5.0) mmol/L Chloride (101-111) mmol/L Carbon Dioxide (21-32) mmol/L Anion Gap (6-13) BUN (6-20) mg/dL Creatinine (0.6-1.2) mg/dL Estimated GFR (MDRD) (>89) Glucose (70-100) mg/dL POC Whole Bld Glucose 310 H 230 H (70 - 100) mg/dL Calcium (8.5-10.3) mg/dL C-Reactive Protein (0-1.0) mg/dL 01/27/22 01/27/22 01/26/22 Range/Units 06:45 06:45 20:00 WBC 7.1 (4.8-10.8) x10^3/uL RBC 4.81 (4.70-6.10) 10^6/uL Hgb 14.4 (14.0-18.0) g/dL Hct 43.2 (42.0-52.0) % MCV 89.8 (80.0-94.0) fL MCH 29.9 (27.0-31.0) pg MCHC 33.3 (32.0-36.0) g/dL RDW 13.0 (12.0-15.0) % Plt Count 162 (130-450) 10^3/uL MPV 11.2 (7.4-11.4) fL Neut # (Auto) 4.8 (1.5-6.6) 10^3/uL Lymph # (Auto) 1.5 (1.5-3.5) 10^3/uL [place] # (Auto) 0.6 (0.0-1.0) 10^3/uL Eos # (Auto) 0.1 (0.0-0.7) 10^3/uL Baso # (Auto) 0.0 (0.0-0.1) 10^3/uL Absolute Nucleated RBC 0.00 x10^3/uL Nucleated RBC % 0.0 /100WBC PT (9.9-12.6) secs INR (0.8-1.2) Sodium 134 L (135-145) mmol/L Potassium 3.6 (3.5-5.0) mmol/L Chloride 102 (101-111) mmol/L Carbon Dioxide 23 (21-32) mmol/L Anion Gap 9.0 (6-13) BUN 16 (6-20) mg/dL Creatinine 0.9 (0.6-1.2) mg/dL Estimated GFR (MDRD) 83 L (>89) Glucose 207 H (70-100) mg/dL POC Whole Bld Glucose 391 H (70 - 100) mg/dL Calcium 8.2 L (8.5-10.3) mg/dL C-Reactive Protein 10.2 H (0-1.0) mg/dL 01/26/22 Range/Units 16:25 WBC (4.8-10.8) x10^3/uL RBC (4.70-6.10) 10^6/uL Hgb (14.0-18.0) g/dL Hct (42.0-52.0) % MCV (80.0-94.0) fL MCH (27.0-31.0) pg MCHC (32.0-36.0) g/dL RDW (12.0-15.0) % Plt Count (130-450) 10^3/uL MPV (7.4-11.4) fL Neut # (Auto) (1.5-6.6) 10^3/uL Lymph # (Auto) (1.5-3.5) 10^3/uL [place] # (Auto) (0.0-1.0) 10^3/uL Eos # (Auto) (0.0-0.7) 10^3/uL Baso # (Auto) (0.0-0.1) 10^3/uL Absolute Nucleated RBC x10^3/uL Nucleated RBC % /100WBC PT (9.9-12.6) secs INR (0.8-1.2) Sodium (135-145) mmol/L Potassium (3.5-5.0) mmol/L Chloride (101-111) mmol/L Carbon Dioxide (21-32) mmol/L Anion Gap (6-13) BUN (6-20) mg/dL Creatinine (0.6-1.2) mg/dL Estimated GFR (MDRD) (>89) Glucose (70-100) mg/dL POC Whole Bld Glucose 397 H (70 - 100) mg/dL Calcium (8.5-10.3) mg/dL C-Reactive Protein (0-1.0) mg/dL - Current Medications Current Medications: Current Medications Generic Name Dose Route Start Last Admin Trade Name Freq PRN Reason Stop Dose Admin Acetaminophen 650 mg 01/25/22 18:41 01/27/22 12:36 Acetaminophen 325 Mg Tablet PO 650 mg Q4HR PRN Administration Pain 1 to 4, or Fever Atorvastatin Calcium 40 mg 01/25/22 21:00 01/26/22 21:14 Atorvastatin 40 Mg Tablet PO 40 mg QPM [place] Administration Diphenhydramine HCl 50 mg 01/25/22 21:51 01/25/22 23:31 Diphenhydramine 25 Mg Capsule PO 50 mg QPM PRN Administration Insomnia Duloxetine HCl 60 mg 01/26/22 09:00 01/27/22 08:13 Duloxetine 30 Mg Capsule PO 60 mg DAILY [place] Administration Hydromorphone HCl 0.5 mg 01/25/22 18:41 01/27/22 13:58 Hydromorphone 0.5 Mg/0.5 Ml Syringe IVP 0.5 mg Q8H PRN Administration Pain 8 to 10 Sodium Chloride 1,000 mls @ 100 mls/hr 01/25/22 19:00 01/27/22 05:57 Normal Saline 0.9% IV 100 mls/hr .Q10H [place] Administration Vancomycin HCl 1 gm/ 500 mls @ 250 mls/hr 01/26/22 10:00 01/27/22 12:15 Vancomycin HCl 500 mg/ Sodium IV Infused Chloride Q12H [place] Infusion Piperacillin Sod/Tazobactam 100 mls @ 200 mls/hr 01/27/22 00:00 01/27/22 12:53 Sod 3.375 gm/ Sodium Chloride IV Infused Q6H [place] Infusion Insulin Aspart 3 - 11 unit 01/25/22 21:00 01/27/22 12:22 Insulin Aspart 300 Unit/3 Ml Pen SUBQ 9 unit 0800,1200,1700,2100 [place] Administration Protocol Insulin Glargine 15 unit 01/25/22 21:00 01/26/22 21:15 Insulin Glargine 300 Unit/3 Ml Pen SUBQ 15 unit QPM [place] Administration Metoclopramide HCl 5 mg 01/27/22 00:00 01/27/22 12:23 Metoclopramide 10 Mg/2 Ml Vial IVP 5 mg Q6HR [place] Administration Metoprolol Succinate 25 mg 01/26/22 09:00 01/27/22 08:13 Metoprolol Succinate 25 Mg Tablet PO 25 mg DAILY [place] Administration Ondansetron HCl 4 mg 01/25/22 18:41 01/26/22 13:54 Ondansetron 4 Mg/2 Ml Vial IVP 4 mg Q6HR PRN Administration Nausea / Vomiting Oxycodone HCl 5 mg 01/25/22 18:41 01/27/22 12:36 Oxycodone 5 Mg Tablet PO 5 mg Q4HR PRN Administration Pain 5 to 7 Sodium Chloride 10 ml 01/26/22 01:00 01/27/22 08:09 Sodium Chloride Flush 0.9% 10 Ml Syringe IVP Not Given 0100,0900,1700 [place] - Physical Exam Wound/Incisions: positive: Drainage, Other (Open wound down to the third metatarsal head approximately 2 cm x 1-1/2 cm. Bleeding tissue present aling with Black eschar skin) Impression/Plan - Problem List Problem List: Patient has advanced soft tissue infection, I do not have high suspicion for bony involvement currently. Some debridement and a dressing change was performed by orthopedic surgery team including Dr Kenton Cloud. Patient will to need a open surgical debridement of bone and soft With within the next 48 hours and then attempt for foot salvage. Discussed with hospitalist, Dr. Cisneros Tentative anticoagulation plan to prepare him for surgery perhaps tomorrow afternoon. Patient to continue under care of hospitalist for active infection and prepare for possible surgery. Continue local wound care with frequent dressing changes. Patient's pain is well controlled due to extensive neuropathy. He is continuing to work on his blood sugar management.
--- NOTE | 2022-01-27 14:11 | PROVIDER PROGRESS NOTE ---
Assessment/Plan - Problem List (1) Osteomyelitis of foot, left, acute Assessment/Plan: X-ray of the left foot was indicated of of osteomyelitis. WBC normal but CRP was elevated at 19.6 and has decreased after starting iv antibx. Lactic acid 3.5 and has normalized. Patient was started on Vancomycin and Cipro. Will continue antibiotics with Vancomycin and Zosyn (for anaerobic coverage) and not Cipro. IV hydration with normal saline at 100 mL/h. Wound and blood cultures pending. Dr. Kenton Cloud with orthopedic surgery consulted and saw him today, he debrided the black skin, and recommended continue antibx, no immediate surgery. (2) Cellulitis of left foot Conclusion/Plan: Patient was given Vancomycin and Cipro. Will continue antibiotics with Vancomycin and Zosyn (for anaerobic coverage) and not Cipro. IV hydration with normal saline at 100 mL/h. Blood culture are neg to date. Wound culture is growing Staph aureus, not MRSA. Await sensitivity results to tailor antibiotic choice (3) Pre-op evaluation Conclusion/Plan: Orthopedics sees the patient and is planning to do surgery for deep debridement in the next 1 to 2 days. Therefore we will be stopping the Coumadin, bridging to Lovenox which can be stopped 12 hours before surgery. A regional block is planned This evaluation was done at admission: Owing to patient's age and medical comorbidities of uncontrolled diabetes, peripheral vascular disease, CHF, atrial fibrillation, history of smoking, hypertension patient has overall higher risk than average. EKG showed atrial fibrillation with PVCs. There is no significant change from previous EKG on 05/22/2018. Patient is currently optimized pending improvement in blood glucose levels. His risk of serious complication is 33.3% when compared to average risk of lena us complication of 19.4%. Risk of any complication is 39.9% as opposed to the average risk of 22.2. Risk of cardiac complication 4.7% in comparison to average risk of 2.0. Risk of pneumonia 4.7% in comparison to 1.8. This information was discussed with the Orthopedic Surgeon, who said that he may need to be transferred to a facility with higher level of care, if the anesthesia risk is high. But surgery is not imminent, as per his consult, therefore will continue the patient's Coumadin at admission. (2) N/V Conclusion/Plan: Improved since starting Reglan scheduled. The N/V started yesterday a.m. after he started receiving iv antibiotics. There were no allergy side effect complaints however. The patient thinks it is from the antibiotics. He received iv Zofran. TRhis was likely gastroparesis, given the poorly controlled diabetes, and we started Reglan scheduled. Will monitor. Will taper down Reglan and make it prn. (3) Uncontrolled type 2 diabetes mellitus Conclusion/Plan: Patient's blood glucose at presentation was 859. Patient is nonadherent to diabetic medications (because of no script as changing doctors and/or Insurance non-coverage). Hemoglobin A1c is Lantus at bedtime ordered. High-dose sliding scale insulin ordered. IV hydration with normal saline continues Qualifiers: Glycemic state: with hyperglycemia Qualified Code(s): E11.65 - Type 2 diabetes mellitus with hyperglycemia (5) Atrial fibrillation Conclusion/Plan: His HR is controlled, we are continuing him on metoprolol succinate 25 mg p.o. daily. Coumadin 5-7.5 mg p.o. daily. Target INR is 2-3. Will follow INR daily. Starting tonight, Coumadin will be stopped and he will be bridged to Lovenox 1 mg/kilogram SQ twice daily. Plan to stop the Lovenox 12 hours before known surgery. (6) Hx of CHF (congestive heart failure) Conclusion/Plan: He is not in CHF exacerbation We are continuing his Metoprolol succinate 25 mg p.o. daily. Lasix held while hydrating patient. (7) Hyperlipidemia Conclusion/Plan: Atorvastatin 40 mg p.o. nightly continuing (8) Hypertension Conclusion/Plan: On metoprolol succinate and he used to be on Lasix. (9) Morbid obesity with BMI 40-45 Conclusion/Plan: As per Hx. Will request a [employer] consult. - Current Meds Current Meds: Current Medications Generic Name Dose Route Start Last Admin Trade Name Freq PRN Reason Stop Dose Admin Acetaminophen 650 mg 01/25/22 18:41 01/27/22 12:36 Acetaminophen 325 Mg Tablet PO 650 mg Q4HR PRN Administration Pain 1 to 4, or Fever Atorvastatin Calcium 40 mg 01/25/22 21:00 01/26/22 21:14 Atorvastatin 40 Mg Tablet PO 40 mg QPM [place] Administration Diphenhydramine HCl 50 mg 01/25/22 21:51 01/25/22 23:31 Diphenhydramine 25 Mg Capsule PO 50 mg QPM PRN Administration Insomnia Duloxetine HCl 60 mg 01/26/22 09:00 01/27/22 08:13 Duloxetine 30 Mg Capsule PO 60 mg DAILY [place] Administration Hydromorphone HCl 0.5 mg 01/25/22 18:41 01/27/22 13:58 Hydromorphone 0.5 Mg/0.5 Ml Syringe IVP 0.5 mg Q8H PRN Administration Pain 8 to 10 Sodium Chloride 1,000 mls @ 100 mls/hr 01/25/22 19:00 01/27/22 05:57 Normal Saline 0.9% IV 100 mls/hr .Q10H [place] Administration Vancomycin HCl 1 gm/ 500 mls @ 250 mls/hr 01/26/22 10:00 01/27/22 12:15 Vancomycin HCl 500 mg/ Sodium IV Infused Chloride Q12H [place] Infusion Piperacillin Sod/Tazobactam 100 mls @ 200 mls/hr 01/27/22 00:00 01/27/22 12 :53 Sod 3.375 gm/ Sodium Chloride IV Infused Q6H [place] Infusion Insulin Aspart 3 - 11 unit 01/25/22 21:00 01/27/22 12:22 Insulin Aspart 300 Unit/3 Ml Pen SUBQ 9 unit 0800,1200,1700,2100 [place] Administration Protocol Insulin Glargine 15 unit 01/25/22 21:00 01/26/22 21:15 Insulin Glargine 300 Unit/3 Ml Pen SUBQ 15 unit QPM [place] Administration Metoclopramide HCl 5 mg 01/27/22 00:00 01/27/22 12:23 Metoclopramide 10 Mg/2 Ml Vial IVP 5 mg Q6HR [place] Administration Metoprolol Succinate 25 mg 01/26/22 09:00 01/27/22 08:13 Metoprolol Succinate 25 Mg Tablet PO 25 mg DAILY [place] Administration Ondansetron HCl 4 mg 01/25/22 18:41 01/26/22 13:54 Ondansetron 4 Mg/2 Ml Vial IVP 4 mg Q6HR PRN Administration Nausea / Vomiting Oxycodone HCl 5 mg 01/25/22 18:41 01/27/22 12:36 Oxycodone 5 Mg Tablet PO 5 mg Q4HR PRN Administration Pain 5 to 7 Sodium Chloride 10 ml 01/26/22 01:00 01/27/22 08:09 Sodium Chloride Flush 0.9% 10 Ml Syringe IVP Not Given 0100,0900,1700 [place] - Lab Result Fish Bone Diagrams: 01/27/22 06:45 01/27/22 06:45 - Additional Planning My Orders: My Active Orders 01/27/22 00:00 Metoclopramide Inj [Reglan Inj] 5 mg IVP Q6HR 01/27/22 10:40 Telemetry-Discontinue [RC] .ONCE 01/27/22 21:00 Enoxaparin [Lovenox] 150 mg SUBQ BID 01/28/22 05:00 BMP - BASIC METABOLIC PANEL [CHEM] DAILYLAB CBC - COMP BLD CT W/AUTO DIFF [HEME] DAILYLAB CRP - C-REACTIVE PROTEIN [CHEM] DAILYLAB PT WITH INR [COAG] DAILYLAB 01/29/22 05:00 BMP - BASIC METABOLIC PANEL [CHEM] DAILYLAB CBC - COMP BLD CT W/AUTO DIFF [HEME] DAILYLAB PT WITH INR [COAG] DAILYLAB Subjective - Subjective Patient Reports: Feeling Better (N/V resolved, ever since Reglan scheduled was started), Resting Comfortably Objective Vital Signs: Vital Signs - 24 hr 01/26/22 01/26/22 01/27/22 16:32 20:02 00:20 Temperature 36.7 C 36.9 C 36.6 C Heart Rate [ 84 72 75 Brachial] Respiratory 21 20 16 Rate Blood Pressure 131/79 H 164/87 H 168/107 H [Right Brachial artery] O2 Saturation 93 96 01/27/22 01/27/22 01/27/22 04:59 07:27 12:50 Temperature 36.4 C L 36.4 C L 36.5 C Heart Rate [ 81 76 89 Brachial] Respiratory 16 16 16 Rate Blood Pressure 142/80 H 127/75 157/85 H [Right Brachial artery] O2 Saturation 97 96 94 Oxygen O2 Source [With Activity] Room air O2 Source Room air I&O (Last 24 Hrs): Intake and Output Totals x24h 01/25/22 01/26/22 01/27/22 23:59 23:59 23:59 Intake Total 1900 4221.667 2981.666 Output Total 450 2600 1000 Balance 1450 3386.138 2455.666 General: Alert, Oriented x3 HEENT: Mucous membr. moist/pink Neck: Supple Neuro: Alert, Other (no sensation L foot) Cardiovascular: Regular rate Respiratory: No respiratory distress Abdomen: Soft, Other (Obese) Extremities: Other (R AKA, L foot and toes bandaged) - Results Results: Laboratory Results WBC 7.1 x10^3/uL (4.8-10.8) 01/27/22 06:45 RBC 4.81 10^6/uL (4.70-6.10) 01/27/22 06:45 Hgb 14.4 g/dL (14.0-18.0) 01/27/22 06:45 Hct 43.2 % (42.0-52.0) 01/27/22 06:45 MCV 89.8 fL (80.0-94.0) 01/27/22 06:45 MCH 29.9 pg (27.0-31.0) 01/27/22 06:45 MCHC 33.3 g/dL (32.0-36.0) 01/27/22 06:45 RDW 13.0 % (12.0-15.0) 01/27/22 06:45 Plt Count 162 10^3/uL (130-450) 01/27/22 06:45 MPV 11.2 fL (7.4-11.4) 01/27/22 06:45 Neut # (Auto) 4.8 10^3/uL (1.5-6.6) 01/27/22 06:45 Lymph # (Auto) 1.5 10^3/uL (1.5-3.5) 01/27/22 06:45 [place] # (Auto) 0.6 10^3/uL (0.0-1.0) 01/27/22 06:45 Eos # (Auto) 0.1 10^3/uL (0.0-0.7) 01/27/22 06:45 Baso # (Auto) 0.0 10^3/uL (0.0-0.1) 01/27/22 06:45 Absolute Nucleated RBC 0.00 x10^3/uL 01/27/22 06:45 Nucleated RBC % 0.0 /100WBC 01/27/22 06:45 ESR 12 mm/Hr (0-20) 01/25/22 14:27 PT 18.6 secs (9.9-12.6) H 01/27/22 06:45 INR 1.7 (0.8-1.2) H 01/27/22 06:45 Sodium 134 mmol/L (135-145) L 01/27/22 06:45 Potassium 3.6 mmol/L (3.5-5.0) 01/27/22 06:45 Chloride 102 mmol/L (101-111) 01/27/22 06:45 Carbon Dioxide 23 mmol/L (21-32) 01/27/22 06:45 Anion Gap 9.0 (6-13) 01/27/22 06:45 BUN 16 mg/dL (6-20) 01/27/22 06:45 Creatinine 0.9 mg/dL (0.6-1.2) 01/27/22 06:45 Estimated GFR (MDRD) 83 (>89) L 01/27/22 06:45 Glucose 207 mg/dL (70-100) H 01/27/22 06:45 POC Whole Bld Glucose 310 mg/dL (70 - 100) H 01/27/22 11:04 Lactic Acid 1.0 mmol/L (0.5-2.2) 01/26/22 07:04 Calcium 8.2 mg/dL (8.5-10.3) L 01/27/22 06:45 Phosphorus 3.1 mg/dL (2.5-4.6) 01/26/22 05:32 Magnesium 1.9 mg/dL (1.7-2.8) 01/26/22 05:32 Total Bilirubin 1.0 mg/dL (0.2-1.0) 01/25/22 14:35 Direct Bilirubin 0.2 mg/dL (0.1-0.5) 01/25/22 14:35 AST 19 IU/L (10-42) 01/25/22 14:35 ALT 17 IU/L (10-60) 01/25/22 14:35 Alkaline Phosphatase 107 IU/L (42-121) 01/25/22 14:35 C-Reactive Protein 10.2 mg/dL (0-1.0) H 01/27/22 06:45 Total Protein 7.0 g/dL (6.7-8.2) 01/25/22 14:35 Albumin 2.9 g/dL (3.2-5.5) L 01/26/22 05:32 Globulin 4.1 g/dL (2.1-4.2) 01/25/22 14:35 Nasal Adenovirus (PCR) NOT DETECTED 01/25/22 17:15 Nasal B. parapertussis DNA (PCR) NOT DETECTED 01/25/22 17:15 Nasal Coronavir 229E PCR NOT DETECTED 01/25/22 17:15 Nasal Coronavir HKU1 PCR NOT DETECTED 01/25/22 17:15 Nasal Coronavir NL63 PCR NOT DETECTED 01/25/22 17:15 Nasal Coronavir OC43 PCR NOT DETECTED 01/25/22 17:15 Nasal Enterovir/Rhinovir PCR NOT DETECTED 01/25/22 17:15 Nasal Influenza B PCR NOT DETECTED 01/25/22 17:15 Nasal Influenza A PCR NOT DETECTED 01/25/22 17:15 Nasal Parainfluen 1 PCR NOT DETECTED 01/25/22 17:15 Nasal Parainfluen 2 PCR NOT DETECTED 01/25/22 17:15 Nasal Parainfluen 3 PCR NOT DETECTED 01/25/22 17:15 Nasal Parainfluen 4 PCR NOT DETECTED 01/25/22 17:15 Nasal RSV (PCR) NOT DETECTED 01/25/22 17:15 Nasal B.pertussis DNA PCR NOT DETECTED 01/25/22 17:15 Nasal C.pneumoniae (PCR) NOT DETECTED 01/25/22 17:15 Billy Human Metapneumo PCR NOT DETECTED 01/25/22 17:15 Nasal M.pneumoniae (PCR) NOT DETECTED 01/25/22 17:15 Nasal SARS-CoV-2 (PCR) NOT DETECTED 01/25/22 17:15 - Procedures Procedures: Procedures EXCIS DEBRIDE OF WOUND, INFECT, OR BURN (11/16/13) SERUM TRANSFUSION NEC (11/16/13) TOE AMPUTATION (03/18/14) VENOUS CATHETERIZATION NEC (12/08/14) Sepsis Event Note (H) - Evaluation Possible source of Sepsis: positive: Bone/Joint, Skin/soft tissue - Sepsis Criteria Sepsis Criteria: Metabolic: lactate > 2 mmol/L
[2022-01-27 18:44] LABS: ESTIMATED AVERAGE GLUCOSE 384 mg/dL (70-100)
[2022-01-27] MEDS ORDERED: ENOXAPARIN 150 MG/ML SYRINGE SUBQ SCH (21:00)
[2022-01-27] MEDS: INSULIN GLARGINE 300 UNIT/3 ML PEN SUBQ SCH (21:23)
[2022-01-27] MEDS: ATORVASTATIN 40 MG TABLET PO SCH (21:23)
[2022-01-27] MEDS: ENOXAPARIN 150 MG/ML SYRINGE SUBQ SCH (21:37)
[2022-01-28] MEDS: PIPERACILLIN/TAZOBACTAM 3.375 GM in SODIUM CHLORIDE 0.9% MINIBAG 100 ML IV SCH ×5 (00:08→23:47)
[2022-01-28] MEDS: METOCLOPRAMIDE 10 MG/2 ML VIAL IVP SCH ×2 (00:08→05:59)
[2022-01-28] MEDS: SODIUM CHLORIDE FLUSH 0.9% 10 ML SYRINGE IVP SCH ×3 (00:15→17:06)
[2022-01-28] MEDS: oxyCODONE 5 MG TABLET PO PRN ×5 (03:20→21:09)
[2022-01-28 05:21] LABS: BASOPHILS # (AUTO) 0.1 10^3/uL (0.0-0.1); BASOPHILS % (AUTO) 0.8 %; EOSINOPHILS # (AUTO) 0.1 10^3/uL (0.0-0.7); EOSINOPHILS % (AUTO) 2.1 %; HCT - HEMATOCRIT 45.1 % (42.0-52.0); HGB - HEMOGLOBIN 14.9 g/dL (14.0-18.0); LYMPHOCYTES # (AUTO) 1.5 10^3/uL (1.5-3.5); LYMPHOCYTES % (AUTO) 22.3 %; MEAN CORPUSCULAR HEMOGLOBIN 29.8 pg (27.0-31.0); MEAN CORPUSCULAR VOLUME 90.2 fL (80.0-94.0); MEAN PLATELET VOLUME 11.3 fL (7.4-11.4); MONOCYTES # (AUTO) 0.4 10^3/uL (0.0-1.0); MONOCYTES % (AUTO) 6.5 %; NEUTROPHILS # (AUTO) 4.4 10^3/uL (1.5-6.6); NEUTROPHILS % (AUTO) 67.2 %; PLT - PLATELET COUNT 172 10^3/uL (130-450); RED CELL DISTRIBUTION WIDTH 13.2 % (12.0-15.0); WHITE BLOOD COUNT 6.6 x10^3/uL (4.8-10.8)
[2022-01-28 05:28] LABS: INR 1.9 (0.8-1.2); PT - PROTHROMBIN TIME 21.3 secs (9.9-12.6)
[2022-01-28 05:38] LABS: CALCIUM 8.5 mg/dL (8.5-10.3); CREATININE 0.9 mg/dL (0.6-1.2); CRP - C-REACTIVE PROTEIN 5.7 mg/dL (0-1.0); POTASSIUM 3.7 mmol/L (3.5-5.0)
[2022-01-28] MEDS: DULoxetine 30 MG CAPSULE PO SCH (07:40)
[2022-01-28] MEDS: ENOXAPARIN 150 MG/ML SYRINGE SUBQ SCH ×2 (07:40→20:50)
[2022-01-28] MEDS: METOPROLOL SUCCINATE 25 MG TABLET PO SCH (07:40)
[2022-01-28] MEDS: INSULIN ASPART 300 UNIT/3 ML PEN SUBQ SCH (07:43)
[2022-01-28] MEDS: VANCOMYCIN INJ 1 GM, VANCOMYCIN INJ 500 MG in SODIUM CHLORIDE 0.9% 500 ML IV SCH (11:08)
[2022-01-28] MEDS ORDERED: METOCLOPRAMIDE 10 MG/2 ML VIAL IVP PRN (11:10)
--- NOTE | 2022-01-28 12:06 | PROVIDER PROGRESS NOTE ---
Subjective - General Admit Date: 01/25/22 - Review of Systems Wound/Incisions: positive: Drainage, Other (Open wound down to the third metatarsal head approximately 2 cm x 1-1/2 cm. Bleeding tissue present aling with Black eschar skin) - Other Other Information/Narrative: He states he is feeling much better and has minimal discomfort to left foot. He denies fever or chills. He does have decreased sensation to left foot, transmetatarsal amputation that has been done previously in stages. Objective - Patient Data Vital Signs: Vital Signs x48h Temp Pulse Resp BP Pulse Ox 01/28/22 07:32 36.5 C 76 16 133/70 H 96 01/28/22 05:55 152/98 H 01/28/22 05:00 36.2 C L 85 16 173/86 H 97 Intake & Output: Intake and Output Totals x24h 01/26/22 01/27/22 01/28/22 23:59 23:59 23:59 Intake Total 4221.667 4521.666 2180 Output Total 2600 2000 625 Balance 8139.883 3972.666 1555 - Lab Results Lab Results: 01/28/22 05:11 01/28/22 05:11 Other Lab Results: Lab Results x24hrs 01/28/22 01/28/22 01/28/22 Range/Units 11:49 07:42 05:11 WBC (4.8-10.8) x10^3/uL RBC (4.70-6.10) 10^6/uL Hgb (14.0-18.0) g/dL Hct (42.0-52.0) % MCV (80.0-94.0) fL MCH (27.0-31.0) pg MCHC (32.0-36.0) g/dL RDW (12.0-15.0) % Plt Count (130-450) 10^3/uL MPV (7.4-11.4) fL Neut # (Auto) (1.5-6.6) 10^3/uL Lymph # (Auto) (1.5-3.5) 10^3/uL [place] # (Auto) (0.0-1.0) 10^3/uL Eos # (Auto) (0.0-0.7) 10^3/uL Baso # (Auto) (0.0-0.1) 10^3/uL Absolute Nucleated RBC x10^3/uL Nucleated RBC % /100WBC PT 21.3 H (9.9-12.6) secs INR 1.9 H (0.8-1.2) Sodium (135-145) mmol/L Potassium (3.5-5.0) mmol/L Chloride (101-111) mmol/L Carbon Dioxide (21-32) mmol/L Anion Gap (6-13) BUN (6-20) mg/dL Creatinine (0.6-1.2) mg/dL Estimated GFR (MDRD) (>89) Glucose (70-100) mg/dL POC Whole Bld Glucose 265 H 227 H (70 - 100) mg/dL Estimat Average Glucose (70-100) mg/dL Hemoglobin A1c % (4.27-6.07) % Calcium (8.5-10.3) mg/dL C-Reactive Protein (0-1.0) mg/dL 01/28/22 01/28/22 01/27/22 Range/Units 05:11 05:11 20:44 WBC 6.6 (4.8-10.8) x10^3/uL RBC 5.00 (4.70-6.10) 10^6/uL Hgb 14.9 (14.0-18.0) g/dL Hct 45.1 (42.0-52.0) % MCV 90.2 (80.0-94.0) fL MCH 29.8 (27.0-31.0) pg MCHC 33.0 (32.0-36.0) g/dL RDW 13.2 (12.0-15.0) % Plt Count 172 (130-450) 10^3/uL MPV 11.3 (7.4-11.4) fL Neut # (Auto) 4.4 (1.5-6.6) 10^3/uL Lymph # (Auto) 1.5 (1.5-3.5) 10^3/uL [place] # (Auto) 0.4 (0.0-1.0) 10^3/uL Eos # (Auto) 0.1 (0.0-0.7) 10^3/uL Baso # (Auto) 0.1 (0.0-0.1) 10^3/uL Absolute Nucleated RBC 0.00 x10^3/uL Nucleated RBC % 0.0 /100WBC PT (9.9-12.6) secs INR (0.8-1.2) Sodium 137 (135-145) mmol/L Potassium 3.7 (3.5-5.0) mmol/L Chloride 105 (101-111) mmol/L Carbon Dioxide 21 (21-32) mmol/L Anion Gap 11.0 (6-13) BUN 13 (6-20) mg/dL Creatinine 0.9 (0.6-1.2) mg/dL Estimated GFR (MDRD) 83 L (>89) Glucose 192 H (70-100) mg/dL POC Whole Bld Glucose 233 H (70 - 100) mg/dL Estimat Average Glucose (70-100) mg/dL Hemoglobin A1c % (4.27-6.07) % Calcium 8.5 (8.5-10.3) mg/dL C-Reactive Protein 5.7 H (0-1.0) mg/dL 01/27/22/ Range/Units 16:35 05:32 WBC (4.8-10.8) x10^3/uL RBC (4.70-6.10) 10^6/uL Hgb (14.0-18.0) g/dL Hct (42.0-52.0) % MCV (80.0-94.0) fL MCH (27.0-31.0) pg MCHC (32.0-36.0) g/dL RDW (12.0-15.0) % Plt Count (130-450) 10^3/uL MPV (7.4-11.4) fL Neut # (Auto) (1.5-6.6) 10^3/uL Lymph # (Auto) (1.5-3.5) 10^3/uL [place] # (Auto) (0.0-1.0) 10^3/uL Eos # (Auto) (0.0-0.7) 10^3/uL Baso # (Auto) (0.0-0.1) 10^3/uL Absolute Nucleated RBC x10^3/uL Nucleated RBC % /100WBC PT (9.9-12.6) secs INR (0.8-1.2) Sodium (135-145) mmol/L Potassium (3.5-5.0) mmol/L Chloride (101-111) mmol/L Carbon Dioxide (21-32) mmol/L Anion Gap (6-13) BUN (6-20) mg/dL Creatinine (0.6-1.2) mg/dL Estimated GFR (MDRD) (>89) Glucose (70-100) mg/dL POC Whole Bld Glucose 294 H (70 - 100) mg/dL Estimat Average Glucose 384 H (70-100) mg/dL Hemoglobin A1c % 15.0 H (4.27-6.07) % Calcium (8.5-10.3) mg/dL C-Reactive Protein (0-1.0) mg/dL - Current Medications Current Medications: Current Medications Generic Name Dose Route Start Last Admin Trade Name Freq PRN Reason Stop Dose Admin Acetaminophen 650 mg 01/25/22 18:41 01/27/22 21:37 Acetaminophen 325 Mg Tablet PO 650 mg Q4HR PRN Administration Pain 1 to 4, or Fever Atorvastatin Calcium 40 mg 01/25/22 21:00 01/27/22 21:23 Atorvastatin 40 Mg Tablet PO 40 mg QPM [place] Administration Diphenhydramine HCl 50 mg 01/25/22 21:51 01/25/22 23:31 Diphenhydramine 25 Mg Capsule PO 50 mg QPM PRN Administration Insomnia Duloxetine HCl 60 mg 01/26/22 09:00 01/28/22 07:40 Duloxetine 30 Mg Capsule PO 60 mg DAILY [place] Administration Enoxaparin Sodium 150 mg 01/27/22 21:00 01/28/22 07:40 Enoxaparin 150 Mg/Ml Syringe SUBQ 150 mg BID [place] Administration Hydromorphone HCl 0.5 mg 01/25/22 18:41 01/27/22 13:58 Hydromorphone 0.5 Mg/0.5 Ml Syringe IVP 0.5 mg Q8H PRN Administration Pain 8 to 10 Vancomycin HCl 1 gm/ 500 mls @ 250 mls/hr 01/26/22 10:00 01/28/22 11:08 Vancomycin HCl 500 mg/ Sodium IV 250 mls/hr Chloride Q12H [place] Administration Piperacillin Sod/Tazobactam 100 mls @ 200 mls/hr 01/27/22 00:00 01/28/22 06:45 Sod 3.375 gm/ Sodium Chloride IV Infused Q6H [place] Infusion Insulin Glargine 15 unit 01/25/22 21:00 01/27/22 21:23 Insulin Glargine 300 Unit/3 Ml Pen SUBQ 15 unit QPM [place] Administration Metoprolol Succinate 25 mg 01/26/22 09:00 01/28/22 07:40 Metoprolol Succinate 25 Mg Tablet PO 25 mg DAILY [place] Administration Ondansetron HCl 4 mg 01/25/22 18:41 01/26/22 13:54 Ondansetron 4 Mg/2 Ml Vial IVP 4 mg Q6HR PRN Administration Nausea / Vomiting Oxycodone HCl 5 mg 01/25/22 18:41 01/28/22 11:42 Oxycodone 5 Mg Tablet PO 5 mg Q4HR PRN Administration Pain 5 to 7 Sodium Chloride 10 ml 01/26/22 01:00 01/28/22 07:40 Sodium Chloride Flush 0.9% 10 Ml Syringe IVP 10 ml 0100,0900,1700 [place] Administration - Physical Exam Comments/Other: The left leg swelling is markedly decreased and the cellulitis to the left leg has resolved. The left foot has a 6 cm or so wound involving most of the forefoot with the exception of the great toe. The second metatarsal head is completely protruding from the wound. The surrounding tissues are necrotic with some erythema to the left forefoot. I did not see a definite plantar abscess to left foot. There is purulence involving the necrotic tissue and exposed wound. These changes are approximately the same as yesterday afternoon.He seems to have relatively good blood supply to the wound. 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 The necrotic tissue burden to the wound needs to be eliminated or reduced including exposed bone, tendon, skin and subcutaneous tissue. Eventually he needs a revision of the previous transmetatarsal amputation and attempt for foot salvage which she strongly desires. He wants to avoid below-knee amputation. He is already stated that he would rather go on hospice if he has to consider below-knee amputation in the future. I have discussed the risk, goals and likelihood of achieving goals, alternatives to surgery, disability and . He may require multiple debridements before definitive revision or higher amputation needs to be considered involving left foot. He is in agreement to the debridement involving skin, soft tissue and bone left foot. The procedure will be done under local or regional anesthesia, sedation.
[2022-01-28] MEDS: INSULIN LISPRO 300 UNIT/3 ML PEN SUBQ SCH ×5 (12:07→20:51)
[2022-01-28] MEDS: SENNA 8.6 MG TABLET PO SCH (13:00)
[2022-01-28] MEDS ORDERED: fentaNYL 100 MCG/2 ML VIAL ONE ×2 (14:07→14:53)
[2022-01-28] MEDS ORDERED: MIDAZOLAM 2 MG/2 ML VIAL ONE (14:07)
[2022-01-28] MEDS ORDERED: BUPIVACAINE 0.5% PF 30 ML VIAL ONE (14:18)
[2022-01-28] MEDS ORDERED: LIDOCAINE 2%-EPI 1:100000 20 ML MDV ONE (14:18)
[2022-01-28] MEDS ORDERED: LIDOCAINE-MPF 2% 5 ML VIAL ONE (14:36)
[2022-01-28] MEDS ORDERED: HYDROGEN PEROXIDE 3% 473 ML BOTTLE TOP ONE (14:47)
[2022-01-28] MEDS ORDERED: LIDOCAINE 2%-EPI 1:100000 20 ML MDV SUBQ ONE ×2 (14:53)
[2022-01-28] MEDS ORDERED: BUPIVACAINE 0.5% PF 30 ML VIAL INFIL ONE (15:05)
--- NOTE | 2022-01-28 15:12 | OPERATIVE REPORT ---
Operative Report - General Admit Date: 01/25/22 Procedure Date: 01/28/22 Planned Procedure: Irrigation and debridement left forefoot to include skin, soft tissue and exposed bone Pre-Op Diagnosis: Diabetic neuropathy with forefoot necrosis of forefoot, localized infection Procedure Performed: Irrigation and debridement left forefoot including necrotic skin, soft tissue including tendon, bone Post Op Diagnosis: Same as preoperative diagnosis - Procedure Note Primary Surgeon: Kenton Cloud MD Secondary Surgeon: Mae LUCIA Anesthesia Technique: Local, Moderate sedation Estimated Blood Loss (mL): 25 Indications: This is a 71-year-old man with uncontrolled diabetes, previous right below knee amputation, unsuccessful prosthetic user of right leg, active cigarette smoker, 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 He has poor sensation to left foot and presented with sepsis involving necrotic tissue to a large portion of her left forefoot, relatively normal-appearing x-rays other than postsurgical changes, elevated blood sugars. He has been admitted to the hospital service placed on broad-spectrum antibiotics and is making good improvement with decreased swelling and cellulitis but remains with localized necrotic tissue despite a bedside debridement earlier. There was purulence at the area of local wound breakdown over an area about 5 to 6 cm with exposed second metatarsal head and neck.There is no sign of any osteomyelitis to the second metatarsal head as the bone readily bleeds Findings: The left foot showed necrotic tissue involving the second, third, fourth and distal fifth metatarsals. The second metatarsal which is relatively long had an intact head and neck but did not show any necrotic bone. The second metatarsal head had good blood supply, no sign of any osteomyelitis. This is primarily a soft tissue infection over necrotic tissue overlying the lesser metatarsals with ascending cellulitis but no necrotizing fasciitis and no sign of a deep plantar abscess. Complications: None - Other Other Information/Narrative: The patient was brought to the operating room, placed in a supine position. The left lower extremity was prepped and draped using a Betadine prep and sterile extremity draping. Local anesthesia utilizing a mixture of 2% lidocaine with epinephrine and half percent Marcaine was utilized. A 50-50 mixture was utilized and a total of 23 cc was injected to the left forefoot. A timeout procedure was performed by the entire operating room team and all were in agreement. A rubber bandage was used to apply a tourniquet over a padded stockinette at the ankle level after exsanguination by elevation. 3 circumferential wraps were utilized around the ankle using the rubber bandage tourniquet. The necrotic wound was about 5 to 6 cm. The incision was extended laterally and proximally and slightly medially. All the necrotic tissue was excised that was soft tissue. This consisted of sharp skin dissection, subcutaneous tissue, tendon. The bone was shortened at the second metatarsal as it was exposed. The second metatarsal head and neck was removed with a rongeur with good bleeding of bone and no sign of bone infection. There seem to be good vascularity to the tissues after the debridement. I did make a 5 mm incision to the plantar arch to exclude a deep plantar space abscess and this was done with a clean, sterile #15 blade. There is no sign of any pus to the plantar space and no sign of pus over the dorsum of the left foot. The debrided tissue was sent for culture both anaerobic and aerobic. The rubber bandage tourniquet was released. There was not excessive bleeding but there was some bleeding from the plantar arch incision. The wound was irrigated with saline and hydrogen peroxide mixture, dilute saline. The wound was dressed open. A Xeroform dressing was applied, fluffs, a large amount of cast padding and Jame wrap to create a bulky dressing. He tolerated the procedure well. He has been on preoperative antibiotics. A physician assistant professor of physics was medically necessary to help with prepping and draping, positioning, protection of vital structures, assistance during the procedure including wound closure, dressing and/or splinting.
--- NOTE | 2022-01-28 15:25 | ANESTHESIA ---
Pre-Anesthesia VS, & Labs - Diagnosis L foot diabetic ulceration - Procedure L foot I&D Vital Signs: Temp Pulse Resp BP Pulse Ox 36.5 C 78 16 157/90 H 97 01/28/22 15:15 01/28/22 15:15 01/28/22 15:15 01/28/22 15:15 01/28/22 15:15 Height: 6 ft 2 in Weight (kg): 152 kg Body Mass Index: 43.0 BMI Classification: Morbidly Obese - NPO Last Food Intake: 5 hours ago - Lab Results Current Lab Results: Laboratory Tests 01/28/22 11:49: POC Whole Bld Glucose 265 H 01/28/22 07:42: POC Whole Bld Glucose 227 H 01/28/22 05:11: PT 21.3 H, INR 1.9 H 01/28/22 05:11: WBC 6.6, RBC 5.00, Hgb 14.9, Hct 45.1, MCV 90.2, MCH 29.8, MCHC 33.0, RDW 13.2, Plt Count 172, MPV 11.3, Neut # (Auto) 4.4, Lymph # (Auto) 1.5, [place] # (Auto) 0.4, Eos # (Auto) 0.1, Baso # (Auto) 0.1, Absolute Nucleated RBC 0.00, Nucleated RBC % 0.0 01/28/22 05:11: Sodium 137, Potassium 3.7, Chloride 105, Carbon Dioxide 21, Anion Gap 11.0, BUN 13, Creatinine 0.9, Estimated GFR (MDRD) 83 L, Glucose 192 H , Calcium 8.5, C-Reactive Protein 5.7 H 01/27/22 20:44: POC Whole Bld Glucose 233 H 01/27/22 16:35: POC Whole Bld Glucose 294 H 01/27/22 11:04: POC Whole Bld Glucose 310 H 01/27/22 07:19: POC Whole Bld Glucose 230 H 01/27/22 06:45: PT 18.6 H, INR 1.7 H 01/27/22 06:45: WBC 7.1, RBC 4.81, Hgb 14.4, Hct 43.2, MCV 89.8, MCH 29.9, MCHC 33.3, RDW 13.0, Plt Count 162, MPV 11.2, Neut # (Auto) 4.8, Lymph # (Auto) 1.5, [place] # (Auto) 0.6, Eos # (Auto) 0.1, Baso # (Auto) 0.0, Absolute Nucleated RBC 0.00, Nucleated RBC % 0.0 01/27/22 06:45: Sodium 134 L, Potassium 3.6, Chloride 102, Carbon Dioxide 23, Anion Gap 9.0, BUN 16, Creatinine 0.9, Estimated GFR (MDRD) 83 L, Glucose 207 H, Calcium 8.2 L, C-Reactive Protein 10.2 H 01/26/22 20:00: POC Whole Bld Glucose 391 H 01/26/22 16:25: POC Whole Bld Glucose 397 H 01/26/22 11:08: POC Whole Bld Glucose 370 H 01/26/22 07:16: POC Whole Bld Glucose 302 H 01/26/22 07:04: Lactic Acid 1.0 01/26/22 05:32: PT 16.4 H, INR 1.5 H 01/26/22 05:32: WBC 6.9, RBC 4.88, Hgb 14.6, Hct 43.5, MCV 89.1, MCH 29.9, MCHC 33.6, RDW 13.1, Plt Count 147, MPV 11.6 H, Neut # (Auto) 4.8, Lymph # (Auto) 1.3 L, [place] # (Auto) 0.6, Eos # (Auto) 0.1, Baso # (Auto) 0.0, Absolute Nucleated RBC 0.00, Nucleated RBC % 0.0 01/26/22 05:32: Estimat Average Glucose 384 H, Hemoglobin A1c % 15.0 H 01/26/22 05:32: Sodium 137, Potassium 3.1 L, Chloride 104, Carbon Dioxide 24, Anion Gap 9.0, BUN 19, Creatinine 1.0, Estimated GFR (MDRD) 74 L, Glucose 283 H, Calcium 8.4 L, Phosphorus 3.1, Magnesium 1.9, C-Reactive Protein 16.6 H, Albumin 2.9 L 01/25/22 23:59: POC Whole Bld Glucose 344 H 01/25/22 19:11: POC Whole Bld Glucose 479 H 01/25/22 18:56: Lactic Acid 2.5 H 01/25/22 16:32: Lactic Acid 3.5 H* 01/25/22 14:35: Total Bilirubin 1.0, Direct Bilirubin 0.2, AST 19, ALT 17, Alkaline Phosphatase 107, Total Protein 7.0, Albumin 2.9 L, Globulin 4.1 01/25/22 14:27: ESR 12 01/25/22 14:27: WBC 9.3, RBC 5.15, Hgb 15.5, Hct 46.5, MCV 90.3, MCH 30.1, MCHC 33.3, RDW 13.2, Plt Count 159, MPV 11.8 H, Neut # (Auto) 7.6 H, Lymph # (Auto) 1.0 L, [place] # (Auto) 0.6, Eos # (Auto) 0.0, Baso # (Auto) 0.0, Absolute Nucleated RBC 0.00, Nucleated RBC % 0.0 01/25/22 14:23: PT 14.9 H, INR 1.3 H 01/25/22 14:23: Sodium 125 L, Potassium 4.0, Chloride 89 L, Carbon Dioxide 22, Anion Gap 14.0 H, BUN 22 H, Creatinine 1.3 H, Estimated GFR (MDRD) 55 L, Glucose 859 H*, Calcium 8.6, C-Reactive Protein 19.6 H Lab results reviewed: Yes Fish Bones: 01/28/22 05:11 01/28/22 05:11 Home Medications and Allergies Home Medications: Ambulatory Orders Dulaglutide [Trulicity] 0.75 mg SUBQ Q7D 01/26/22 Duloxetine HCl [Cymbalta] 60 mg PO DAILY 01/26/22 Insulin Glargine,Hum.rec.anlog [Basaglar Kwikpen U-100] 13 unit SUBQ QPM 01/26/22 Metformin HCl [Metformin ER Osmotic] 1,000 mg PO DAILY 01/26/22 Tamsulosin [Flomax] 0.4 mg PO DAILY 01/26/22 Active Medications Acetaminophen (Acetaminophen 325 Mg Tablet) 650 mg PO Q4HR PRN PRN Reason: Pain 1 to 4, or Fever Last Admin: 01/27/22 21:37 Dose: 650 mg Atorvastatin Calcium (Atorvastatin 40 Mg Tablet) 40 mg PO QPM [place] Last Admin: 01/27/22 21:23 Dose: 40 mg Diphenhydramine HCl (Diphenhydramine 25 Mg Capsule) 50 mg PO QPM PRN PRN Reason: Insomnia Last Admin: 01/25/22 23:31 Dose: 50 mg Duloxetine HCl (Duloxetine 30 Mg Capsule) 60 mg PO DAILY [facility] Last Admin: 01/28/22 07:40 Dose: 60 mg Enoxaparin Sodium (Enoxaparin 150 Mg/Ml Syringe) 150 mg SUBQ BID [facility] Last Admin: 01/28/22 07:40 Dose: 150 mg Hydromorphone HCl (Hydromorphone 0.5 Mg/0.5 Ml Syringe) 0.5 mg IVP Q8H PRN PRN Reason: Pain 8 to 10 Last Admin: 01/27/22 13:58 Dose: 0.5 mg Piperacillin Sod/Tazobactam (Sod 3.375 gm/ Sodium Chloride) 100 mls @ 200 mls/hr IV Q6H [facility] Last Infusion: 01/28/22 13:49 Dose: Infused Insulin Glargine (Insulin Glargine 300 Unit/3 Ml Pen) 15 unit SUBQ QPM [facility] Last Admin: 01/27/22 21:23 Dose: 15 unit Insulin Human Lispro (Insulin Lispro 300 Unit/3 Ml Pen) 5 unit SUBQ TIDWM [facility]; Protocol Last Admin: 01/28/22 12:07 Dose: Not Given Insulin Human Lispro (Insulin Lispro 300 Unit/3 Ml Pen) 3 - 11 unit SUBQ 0800,1200,1700,2100 [facility]; Protocol Last Admin: 01/28/22 12:13 Dose: 7 unit Metoclopramide HCl (Metoclopramide 10 Mg/2 Ml Vial) 5 mg IVP Q6H PRN PRN Reason: Nausea / Vomiting Metoprolol Succinate (Metoprolol Succinate 25 Mg Tablet) 25 mg PO DAILY [facility] Last Admin: 01/28/22 07:40 Dose: 25 mg Ondansetron HCl (Ondansetron 4 Mg/2 Ml Vial) 4 mg IVP Q6HR PRN PRN Reason: Nausea / Vomiting Last Admin: 01/26/22 13:54 Dose: 4 mg Oxycodone HCl (Oxycodone 5 Mg Tablet) 5 mg PO Q4HR PRN PRN Reason: Pain 5 to 7 Last Admin: 01/28/22 11:42 Dose: 5 mg Senna (Senna 8.6 Mg Tablet) 8.6 - 17.2 mg PO DAILY [facility] Last Admin: 01/28/22 13:00 Dose: 8.6 mg Sodium Chloride (Sodium Chloride Flush 0.9% 10 Ml Syringe) 10 ml IVP PRN PRN PRN Reason: NEEDED PER PROVIDER ORDERS Sodium Chloride (Sodium Chloride Flush 0.9% 10 Ml Syringe) 10 ml IVP 0100,0900,1700 [facility] Last Admin: 01/28/22 07:40 Dose: 10 ml Furosemide [Lasix] 80 mg PO DAILY 12/01/12 Warfarin Sodium [Coumadin] 5 mg PO DAILY 12/01/12 Atorvastatin Calcium 40 mg PO QPM 05/31/20 Metoprolol Succinate [Toprol Xl] 25 mg PO BID 11/16/20 Dulaglutide [Trulicity] 0.75 mg SUBQ Q7D 01/26/22 Duloxetine HCl [Cymbalta] 60 mg PO DAILY 01/26/22 Insulin Glargine,Hum.rec.anlog [Basaglar Kwikpen U-100] 13 unit SUBQ QPM 01/26/22 Metformin HCl [Metformin ER Osmotic] 1,000 mg PO DAILY 01/26/22 Tamsulosin [Flomax] 0.4 mg PO DAILY 01/26/22 Allergies/Adverse Reactions: Allergies Allergy/AdvReac Type Severity Reaction Status Date / Time silver Allergy Mild Rash Verified 01/25/22 13:52 [From VedicisadeTigerspike [employer] Mesh] carvedilol Allergy Unknown Anxiety Verified 01/25/22 13:52 Sulfa (Sulfonamide Allergy Unknown unknown Verified 01/25/22 13:52 Antibiotics) hydrochlorothiazide Allergy Rash Verified 01/25/22 13:52 Anes History & Medical History - Anesthetic History Anesthesia Complications: reports: No previous complications Family history of Anesthesia Complications: Denies Family history of Malignant Hyperthermia: Denies - Medical History Cardiovascular: reports: Congestive heart failure, Hypertension, High cholesterol, Deep vein thrombosis (axillary vein assoc with PICC line), Atrial fibrillation Pulmonary: reports: Sleep apnea Gastrointestinal: reports: Hepatitis Urinary: reports: Benign prostate hypertrophy, Renal insuffiency Neuro: reports: Peripheral neuropathy Musculoskeletal: reports: Chronic back pain (followed in pain clinic in [place]) Endocrine/Autoimmune: reports: Type 2 diabetes Blood Disorders: reports: None Skin: reports: None Smoking Status: Current every day smoker - Surgical History Cardiothoracic: reports: AICD Orthopedic: reports: Amputation (right BKA; all toes left foot), Other (extensive I&Ds to B LE over 20 years) Exam General: Alert, Oriented x3, Cooperative Mouth Openin Fingerbreadth Neck Mobility: Normal Mallampati classification: II Thyromental Distance: 4-6 cm Respiratory: Lungs clear, Normal breath sounds, No respiratory distress, De creased breath sounds Cardiovascular: Regular rate Neurological: Normal speech, Other (little sensatiopn at extremeties r/t diabetes, hands/feet) Mental/Cognitive Status: Alert/Oriented X3, Normal for patient Cognitive Status: Within normal limits Plan Anesthesia Type: MAC Consent for Procedure(s) Verified and Reviewed: Yes Code Status: Attempt Resuscitation ASA classification: 3-Severe systemic disease Is this case an emergency?: No
--- NOTE | 2022-01-28 15:26 | ANESTHESIA POST OP EVALUATION ---
Anesthesia Post Eval - Post Anesthesia Eval Vitals: Last Vital Signs Temp 36.5 C 01/28/22 15:15 Pulse 78 01/28/22 15:15 Resp 16 01/28/22 15:15 BP 157/90 H 01/28/22 15:15 Pulse Ox 97 01/28/22 15:15 CV Function Including HR & BP: Stable Pain Control: Satisfactory Nausea & Vomiting: Negative Mental Status: Baseline Respiratory Status: Airway Patent Hydration Status: Satisfactory Anesthesia Complications: None
[2022-01-28] MEDS: ATORVASTATIN 40 MG TABLET PO SCH (20:50)
[2022-01-28] MEDS: INSULIN GLARGINE 300 UNIT/3 ML PEN SUBQ SCH (20:50)
[2022-01-28] MEDS: diphenhydrAMINE 25 MG CAPSULE PO PRN (23:43)
[2022-01-29] MEDS: oxyCODONE 5 MG TABLET PO PRN ×6 (00:55→22:46)
[2022-01-29] MEDS: SODIUM CHLORIDE FLUSH 0.9% 10 ML SYRINGE IVP SCH ×3 (00:56→17:46)
[2022-01-29] MEDS: SODIUM CHLORIDE FLUSH 0.9% 10 ML SYRINGE IVP PRN ×2 (06:27→17:56)
[2022-01-29] MEDS: PIPERACILLIN/TAZOBACTAM 3.375 GM in SODIUM CHLORIDE 0.9% MINIBAG 100 ML IV SCH ×3 (06:27→17:46)
[2022-01-29 07:20] LABS: BASOPHILS # (AUTO) 0.1 10^3/uL (0.0-0.1); BASOPHILS % (AUTO) 0.7 %; EOSINOPHILS # (AUTO) 0.1 10^3/uL (0.0-0.7); EOSINOPHILS % (AUTO) 1.6 %; HCT - HEMATOCRIT 39.4 % (42.0-52.0); HGB - HEMOGLOBIN 13.2 g/dL (14.0-18.0); LYMPHOCYTES # (AUTO) 1.2 10^3/uL (1.5-3.5); LYMPHOCYTES % (AUTO) 16.2 %; MEAN CORPUSCULAR HEMOGLOBIN 30.3 pg (27.0-31.0); MEAN CORPUSCULAR HGB CONC 33.5 g/dL (32.0-36.0); MEAN CORPUSCULAR VOLUME 90.6 fL (80.0-94.0); MEAN PLATELET VOLUME 11.5 fL (7.4-11.4); MONOCYTES # (AUTO) 0.5 10^3/uL (0.0-1.0); MONOCYTES % (AUTO) 7.2 %; NEUTROPHILS # (AUTO) 5.4 10^3/uL (1.5-6.6); NEUTROPHILS % (AUTO) 73.3 %; PLT - PLATELET COUNT 183 10^3/uL (130-450); RED BLOOD COUNT 4.35 10^6/uL (4.70-6.10); RED CELL DISTRIBUTION WIDTH 13.1 % (12.0-15.0); WHITE BLOOD COUNT 7.3 x10^3/uL (4.8-10.8)
[2022-01-29 07:26] LABS: CALCIUM 8.3 mg/dL (8.5-10.3); CREATININE 0.9 mg/dL (0.6-1.2); POTASSIUM 3.7 mmol/L (3.5-5.0)
[2022-01-29 07:28] LABS: PT - PROTHROMBIN TIME 22.2 secs (9.9-12.6)
[2022-01-29] MEDS: INSULIN LISPRO 300 UNIT/3 ML PEN SUBQ SCH ×7 (07:51→20:49)
[2022-01-29] MEDS: SENNA 8.6 MG TABLET PO SCH (07:52)
[2022-01-29] MEDS: MULTIVITAMIN W/MINERALS TABLET PO SCH (07:52)
[2022-01-29] MEDS: DULoxetine 30 MG CAPSULE PO SCH (07:52)
[2022-01-29] MEDS: METOPROLOL SUCCINATE 25 MG TABLET PO SCH (07:52)
[2022-01-29 10:00] LABS: VANCOMYCIN,TROUGH 10.2 ug/mL (10.0-20.0)
[2022-01-29] MEDS: polyethylene glycoL 3350 17 GM PACKET PO SCH (10:21)
[2022-01-29] MEDS: ONDANSETRON 4 MG/2 ML VIAL IVP PRN (10:21)
--- NOTE | 2022-01-29 13:21 | PROVIDER PROGRESS NOTE ---
Subjective - Prog Note Date Prog Note Date: 01/29/22 Prog Note Time: 13:19 - Subjective Subjective: Hospitalist taking over on service. 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 Now presents with malodorous drainage from his left foot on the plantar surface. X-ray of the foot showed osteomyelitis, lactic acid was 3.5, C-reactive protein was elevated, glucose 859. He has not been taking insulin for several months due to problems with his insurance. Today is day #5. He was debrided in the operating room on day #4. Orthopedics feels there is no further osteomyelitis. Wound culture from January 25 is MSSA. Blood cultures are negative. Wound culture from January 28, in the OR, shows rare gram-positive cocci and results are pending. His white cell count has been normal since this admission. His temperature has been normal during this admission. C-reactive protein was 19.6 on January 25 and was 5.7 yesterday. He was 150 mg twice daily of Lovenox. Since surgery yesterday, his dressing has had to be changed twice because he is soaking up the dressing with blood. Hemoglobin was 15.5 on admission and it is 13.2 today. Between yesterday and today he is drop between 14.9-13.2. Patient states that other than some mild foot pain, he denies any chest pain, palpitations, shortness of breath. He is a little worried about this foot keeps on bleeding and soaking through the bandage. Current Medications - Current Medications Current Medications: Active Medications Acetaminophen (Acetaminophen 325 Mg Tablet) 650 mg PO Q4HR PRN PRN Reason: Pain 1 to 4, or Fever Last Admin: 01/27/22 21:37 Dose: 650 mg Atorvastatin Calcium (Atorvastatin 40 Mg Tablet) 40 mg PO QPM [place] Last Admin: 01/28/22 20:50 Dose: 40 mg Diphenhydramine HCl (Diphenhydramine 25 Mg Capsule) 50 mg PO QPM PRN PRN Reason: Insomnia Last Admin: 01/28/22 23:43 Dose: 50 mg Duloxetine HCl (Duloxetine 30 Mg Capsule) 60 mg PO DAILY [place] Last Admin: 01/29/22 07:52 Dose: 60 mg Hydromorphone HCl (Hydromorphone 0.5 Mg/0.5 Ml Syringe) 0.5 mg IVP Q8H PRN PRN Reason: Pain 8 to 10 Last Admin: 01/27/22 13:58 Dose: 0.5 mg Piperacillin Sod/Tazobactam (Sod 3.375 gm/ Sodium Chloride) 100 mls @ 200 mls /hr IV Q6H [facility] Last Admin: 01/29/22 12:39 Dose: 200 mls/hr Insulin Glargine (Insulin Glargine 300 Unit/3 Ml Pen) 15 unit SUBQ QPM [facility] Last Admin: 01/28/22 20:50 Dose: 15 unit Insulin Human Lispro (Insulin Lispro 300 Unit/3 Ml Pen) 5 unit SUBQ TIDWM [facility]; Protocol Last Admin: 01/29/22 12:09 Dose: 5 unit Insulin Human Lispro (Insulin Lispro 300 Unit/3 Ml Pen) 3 - 11 unit SUBQ 0800,1200,1700,2100 [facility]; Protocol Last Admin: 01/29/22 12:10 Dose: 5 unit Metoclopramide HCl (Metoclopramide 10 Mg/2 Ml Vial) 5 mg IVP Q6H PRN PRN Reason: Nausea / Vomiting Metoprolol Succinate (Metoprolol Succinate 25 Mg Tablet) 25 mg PO DAILY [facility] Last Admin: 01/29/22 07:52 Dose: 25 mg Multivitamins/Minerals (Multivitamin W/Minerals Tablet) 1 tab PO DAILYWM [facility] Last Admin: 01/29/22 07:52 Dose: 1 tab Ondansetron HCl (Ondansetron 4 Mg/2 Ml Vial) 4 mg IVP Q6HR PRN PRN Reason: Nausea / Vomiting Last Admin: 01/29/22 10:21 Dose: 4 mg Oxycodone HCl (Oxycodone 5 Mg Tablet) 5 mg PO Q4HR PRN PRN Reason: Pain 5 to 7 Last Admin: 01/29/22 10:28 Dose: 5 mg Polyethylene Glycol (Polyethylene Glycol 3350 17 Gm Packet) 17 gm PO DAILY [facility] Last Admin: 01/29/22 10:21 Dose: 17 gm Senna (Senna 8.6 Mg Tablet) 8.6 - 17.2 mg PO DAILY [facility] Last Admin: 01/29/22 07:52 Dose: 8.6 mg Sodium Chloride (Sodium Chloride Flush 0.9% 10 Ml Syringe) 10 ml IVP PRN PRN PRN Reason: NEEDED PER PROVIDER ORDERS Last Admin: 01/29/22 06:27 Dose: 10 ml Sodium Chloride (Sodium Chloride Flush 0.9% 10 Ml Syringe) 10 ml IVP 0100,0900,1700 [place] Last Admin: 01/29/22 07:53 Dose: 10 ml Furosemide [Lasix] 80 mg PO DAILY 12/01/12 Warfarin Sodium [Coumadin] 5 mg PO DAILY 12/01/12 Atorvastatin Calcium 40 mg PO QPM 05/31/20 Metoprolol Succinate [Toprol Xl] 25 mg PO BID 11/16/20 Dulaglutide [Trulicity] 0.75 mg SUBQ Q7D 01/26/22 Duloxetine HCl [Cymbalta] 60 mg PO DAILY 01/26/22 Insulin Glargine,Hum.rec.anlog [Basaglar Kwikpen U-100] 13 unit SUBQ QPM 01/26/22 Metformin HCl [Metformin ER Osmotic] 1,000 mg PO DAILY 01/26/22 Tamsulosin [Flomax] 0.4 mg PO DAILY 01/26/22 Objective - Vital Signs/Intake & Output Reviewed Vital Signs: Yes Vital Signs: Vital Signs x48h Temp Pulse Resp BP Pulse Ox 01/29/22 13:15 36.5 C 81 16 122/74 96 01/29/22 10:00 36.7 C 80 18 131/84 H 97 Intake & Output: Intake & Output 01/26/22 01/27/22 01/28/22 01/29/22 23:59 23:59 23:59 23:59 Intake Total 4221.667 4521.666 4020 1210 Output Total 2600 1999 2225 715 Balance 2257.500 8422.666 1795 495 - Objective General Appearance: positive: No acute distress, Alert, Other (Tall, balding, morbidly obese male who is sitting up in his chair, slightly nasal tone of voice, no acute distress) Eyes Bilateral: positive: PERRL, EOMI ENT: positive: Pharynx nml Neck: positive: No JVD. negative: Stiff neck Respiratory: positive: No respiratory distress. negative: Wheezes, Rales, Rhonchi Cardiovascular: positive: Regular rate & rhythm. negative: Gallop/S4, Friction rub Abdomen: positive: Non-tender, No organomegaly, Nml bowel sounds, No distention Skin: positive: Warm, Dry Extremities: positive: Other Neurologic/Psychiatric: positive: Oriented x3, CN's nml (2-12), Motor nml. negative: Sensation nml (Right partial amputation. Left foot wrapped in a bandage. The plantar aspect of the bandage is completely soaked in blood with clot on the outer surface. No redness or heat in the skin above where the bandages covering them. Loss of light touch all the way up to mid purvis) - Lab Results Fish Bones: 01/29/22 07:06 01/29/22 07:06 Other Labs: Lab Results x24hrs 01/29/22 01/29/22 01/29/22 Range/Units 12:02 09:31 07:24 WBC (4.8-10.8) x10^3/uL RBC (4.70-6.10) 10^6/uL Hgb (14.0-18.0) g/dL Hct (42.0-52.0) % MCV (80.0-94.0) fL MCH (27.0-31.0) pg MCHC (32.0-36.0) g/dL RDW (12.0-15.0) % Plt Count (130-450) 10^3/uL MPV (7.4-11.4) fL Neut # (Auto) (1.5-6.6) 10^3/uL Lymph # (Auto) (1.5-3.5) 10^3/uL [place] # (Auto) (0.0-1.0) 10^3/uL Eos # (Auto) (0.0-0.7) 10^3/uL Baso # (Auto) (0.0-0.1) 10^3/uL Absolute Nucleated RBC x10^3/uL Nucleated RBC % /100WBC PT (9.9-12.6) secs INR (0.8-1.2) Sodium (135-145) mmol/L Potassium (3.5-5.0) mmol/L Chloride (101-111) mmol/L Carbon Dioxide (21-32) mmol/L Anion Gap (6-13) BUN (6-20) mg/dL Creatinine (0.6-1.2) mg/dL Estimated GFR (MDRD) (>89) Glucose (70-100) mg/dL POC Whole Bld Glucose 213 H 201 H (70 - 100) mg/dL Calcium (8.5-10.3) mg/dL Last Dose Date UNK Last Dose Time UNK Vancomycin Trough 10.2 (10.0-20.0) ug/mL 01/29/22 01/29/22 01/29/22 Range/Units 07:06 07:06 07:06 WBC 7.3 (4.8-10.8) x10^3/uL RBC 4.35 L (4.70-6.10) 10^6/uL Hgb 13.2 L (14.0-18.0) g/dL Hct 39.4 L (42.0-52.0) % MCV 90.6 (80.0-94.0) fL MCH 30.3 (27.0-31.0) pg MCHC 33.5 (32.0-36.0) g/dL RDW 13.1 (12.0-15.0) % Plt Count 183 (130-450) 10^3/uL MPV 11.5 H (7.4-11.4) fL Neut # (Auto) 5.4 (1.5-6.6) 10^3/uL Lymph # (Auto) 1.2 L (1.5-3.5) 10^3/uL [place] # (Auto) 0.5 (0.0-1.0) 10^3/uL Eos # (Auto) 0.1 (0.0-0.7) 10^3/uL Baso # (Auto) 0.1 (0.0-0.1) 10^3/uL Absolute Nucleated RBC 0.00 x10^3/uL Nucleated RBC % 0.0 /100WBC PT 22.2 H (9.9-12.6) secs INR 2.0 H (0.8-1.2) Sodium 139 (135-145) mmol/L Potassium 3.7 (3.5-5.0) mmol/L Chloride 107 (101-111) mmol/L Carbon Dioxide 24 (21-32) mmol/L Anion Gap 8.0 (6-13) BUN 13 (6-20) mg/dL Creatinine 0.9 (0.6-1.2) mg/dL Estimated GFR (MDRD) 83 L (>89) Glucose 192 H (70-100) mg/dL POC Whole Bld Glucose (70 - 100) mg/dL Calcium 8.3 L (8.5-10.3) mg/dL Last Dose Date Last Dose Time Vancomycin Trough (10.0-20.0) ug/mL 01/28/22 01/28/22 Range/Units 20:29 16:42 WBC (4.8-10.8) x10^3/uL RBC (4.70-6.10) 10^6/uL Hgb (14.0-18.0) g/dL Hct (42.0-52.0) % MCV (80.0-94.0) fL MCH (27.0-31.0) pg MCHC (32.0-36.0) g/dL RDW (12.0-15.0) % Plt Count (130-450) 10^3/uL MPV (7.4-11.4) fL Neut # (Auto) (1.5-6.6) 10^3/uL Lymph # (Auto) (1.5-3.5) 10^3/uL [place] # (Auto) (0.0-1.0) 10^3/uL Eos # (Auto) (0.0-0.7) 10^3/uL Baso # (Auto) (0.0-0.1) 10^3/uL Absolute Nucleated RBC x10^3/uL Nucleated RBC % /100WBC PT (9.9-12.6) secs INR (0.8-1.2) Sodium (135-145) mmol/L Potassium (3.5-5.0) mmol/L Chloride (101-111) mmol/L Carbon Dioxide (21-32) mmol/L Anion Gap (6-13) BUN (6-20) mg/dL Creatinine (0.6-1.2) mg/dL Estimated GFR (MDRD) (>89) Glucose (70-100) mg/dL POC Whole Bld Glucose 180 H 199 H (70 - 100) mg/dL Calcium (8.5-10.3) mg/dL Last Dose Date Last Dose Time Vancomycin Trough (10.0-20.0) ug/mL ABX Reporting Has patient been on IV antibiotics over the past 48 hours?: Yes Sepsis Event Note (H) - Evaluation Possible source of Sepsis: positive: Bone/Joint, Skin/soft tissue - Sepsis Criteria Sepsis Criteria: Metabolic: lactate > 2 mmol/L Assessment/Plan - Problem List (1) Post-op bleeding Impression: He has had debridement of the left foot osteomyelitis. Unfortunately he was on Lovenox 150 mg subcutaneously twice daily. Surgery was canceled and asked that she received food and Lovenox. But then there was a change in the OR status and he went to the OR on full dose Lovenox. She has had some postoperative bleeding since then. Orthopedics is aware and has seen him postoperatively last night and will see him again this afternoon. He has requested that he do the dressing changes. Plan: At this time the patient is reassured. I do anticipate the bleeding to stop. Lovenox has been held. Slight drift down for hemoglobin from yesterday to today. We will recheck this afternoon. Qualifiers: Surgical complication system/body Area: musculoskeletal system Procedure type: musculoskeletal Qualified Code(s): M96.830 - Postprocedural hemorrhage of a musculoskeletal structure following a musculoskeletal system procedure (2) Osteomyelitis of foot, left, acute Impression: Assessment/Plan: X-ray of the left foot was indicated of of osteomyelitis. WBC normal but CRP was elevated at 19.6 and has decreased after starting iv antibx. Lactic acid 3.5 and has normalized. Patient was started on Vancomycin and Cipro. With the cult ure showing MSSA, vancomycin discontinued. Will continue antibiotics with Zosyn (for anaerobic coverage) and not Cipro. Day #5 of Zosyn IV hydration with normal saline at 100 mL/h stopped since he is eating and drinking repeat Wound culture pending and blood cultures on admission negative Dr. Kenton Cloud with orthopedic surgery consulted and saw him 01/27 and went to debridement in OR 01/28. He will be seen again today. (3) Cellulitis of left foot with MSSA infection Conclusion/Plan: As above (4) Pre-op evaluation Conclusion/Plan: This evaluation was done at admission: Owing to patient's age and medical comorbidities of uncontrolled diabetes, peripheral vascular disease, CHF, atrial fibrillation, history of smoking, hypertension patient has overall higher risk than average. EKG showed atrial fibrillation with PVCs. There is no significant change from previous EKG on 05/22/2018. Patient is currently optimized pending improvement in blood glucose levels. His risk of serious complication is 33.3% when compared to average risk of serious complication of 19.4%. Risk of any complication is 39.9% as opposed to the average risk of 22.2. Risk of cardiac complication 4.7% in comparison to average risk of 2.0. Risk of pneumonia 4.7% in comparison to 1.8. This information was discussed with the Orthopedic Surgeon, who said that he may need to be transferred to a facility with higher level of care, if the anesthesia risk is high. But surgery is not imminent, as per his consult, therefore will continue the patient's Coumadin at admission. After 3 days, ortho felt he did need to go to OR and bridged w lovenox. Because he continues to have oozing and is soaking his bandages, the Lovenox has been discontinued temporarily. (5) N/V Conclusion/Plan: Resolved since starting scheduled Reglan The N/V started 7/16 a.m. after he started receiving iv antibiotics. There were no allergy side effect complaints however. The patient thinks it is from the antibiotics. He received iv Zofran but not much relief so was felt to be likely gastroparesis, given the poorly controlled diabetes, and we started Reglan scheduled. Will continue to monitor and reglan changed to prn. (6) Uncontrolled type 2 diabetes mellitus Conclusion/Plan: Patient's blood glucose at presentation was 859. Patient is nonadherent to diabetic medications (because of no script as changing doctors and/or Insurance non-coverage). Hemoglobin A1c is 15% Lantus at bedtime ordered. High-dose sliding scale insulin ordered. IV hydration with normal saline started and now stopped January 28 glucose 227, 265, 199, 180. Today glucose 201, 213 Plan: Increase lantus from 15 units to 20 units for goal of fasting <130 Qualifiers: Glycemic state: with hyperglycemia Qualified Code(s): E11.65 - Type 2 diabetes mellitus with hyperglycemia (7) Atrial fibrillation Conclusion/Plan: His HR is controlled, we are continuing him on metoprolol succinate 25 mg p.o. daily. Coumadin 5-7.5 mg p.o. daily. Target INR is 2-3. His Coumadin was held January 27 with idea of him going to the OR January 28. He was on Lovenox. Lovenox discontinued because of bleeding. Will resume Lovenox and Coumadin once bleeding addressed this afternoon by orthopedics. (8) Hx of CHF (congestive heart failure) Conclusion/Plan: He is not in CHF exacerbation We are continuing his Metoprolol succinate 25 mg p.o. daily. We had held his Lasix while we were hydrating him. He says that he would like to have resumption of his normal Lasix today. We will order that. (9) Hyperlipidemia Conclusion/Plan: Atorvastatin 40 mg p.o. nightly continuing (10) Hypertension Conclusion/Plan: On metoprolol succinate (11) Morbid obesity with BMI 40-45 Conclusion/Plan: As per Hx. Nutrition services is following patient
[2022-01-29 14:24] LABS: HCT - HEMATOCRIT 38.1 % (42.0-52.0); MEAN CORPUSCULAR HGB CONC 34.1 g/dL (32.0-36.0); MEAN CORPUSCULAR VOLUME 90.7 fL (80.0-94.0); MEAN PLATELET VOLUME 11.2 fL (7.4-11.4); RED BLOOD COUNT 4.2 10^6/uL (4.70-6.10); RED CELL DISTRIBUTION WIDTH 13.2 % (12.0-15.0); WHITE BLOOD COUNT 7.6 x10^3/uL (4.8-10.8)
--- NOTE | 2022-01-29 16:51 | PROVIDER PROGRESS NOTE ---
Subjective - General Admit Date: 01/25/22 Procedure Date: 01/28/22 Post Op Days: 1 Procedure Performed: Irrigation debridement necrotic, infected diabetic ulcer overlying previous - Review of Systems Wound/Incisions: positive: Other. negative: Drainage (Bloody drainage into dressing) - Other Other Information/Narrative: He denies pain to left foot, alert, sitting, no acute distress Objective - Patient Data Vital Signs: Vital Signs x48h Temp Pulse Resp BP Pulse Ox 01/29/22 15:40 36.6 C 82 16 133/74 H 96 01/29/22 13:15 36.5 C 81 16 122/74 96 01/29/22 10:00 36.7 C 80 18 131/84 H 97 Weight: Weight 01/27/22 01/28/22 01/29/22 23:59 23:59 23:59 Weight (kg) 152 kg Intake & Output: Intake and Output Totals x24h 01/27/22 01/28/22 01/29/22 23:59 23:59 23:59 Intake Total 4521.666 4020 1810 Output Total 1999 2225 1065 Balance 2521.666 1795 745 - Lab Results Lab Results: 01/29/22 14:18 01/29/22 07:06 Other Lab Results: Lab Results x24hrs 01/29/22 01/29/22 01/29/22 Range/Units 14:18 12:02 09:31 WBC 7.6 (4.8-10.8) x10^3/uL RBC 4.20 L (4.70-6.10) 10^6/uL Hgb 13.0 L (14.0-18.0) g/dL Hct 38.1 L (42.0-52.0) % MCV 90.7 (80.0-94.0) fL MCH 31.0 (27.0-31.0) pg MCHC 34.1 (32.0-36.0) g/dL RDW 13.2 (12.0-15.0) % Plt Count 176 (130-450) 10^3/uL MPV 11.2 (7.4-11.4) fL Neut # (Auto) (1.5-6.6) 10^3/uL Lymph # (Auto) (1.5-3.5) 10^3/uL [place] # (Auto) (0.0-1.0) 10^3/uL Eos # (Auto) (0.0-0.7) 10^3/uL Baso # (Auto) (0.0-0.1) 10^3/uL Absolute Nucleated RBC x10^3/uL Nucleated RBC % /100WBC PT (9.9-12.6) secs INR (0.8-1.2) Sodium (135-145) mmol/L Potassium (3.5-5.0) mmol/L Chloride (101-111) mmol/L Carbon Dioxide (21-32) mmol/L Anion Gap (6-13) BUN (6-20) mg/dL Creatinine (0.6-1.2) mg/dL Estimated GFR (MDRD) (>89) Glucose (70-100) mg/dL POC Whole Bld Glucose 213 H (70 - 100) mg/dL Calcium (8.5-10.3) mg/dL Last Dose Date UNK Last Dose Time UNK Vancomycin Trough 10.2 (10.0-20.0) ug/mL 01/29/22 01/29/22 01/29/22 Range/Units 07:24 07:06 07:06 WBC (4.8-10.8) x10^3/uL RBC (4.70-6.10) 10^6/uL Hgb (14.0-18.0) g/dL Hct (42.0-52.0) % MCV (80.0-94.0) fL MCH (27.0-31.0) pg MCHC (32.0-36.0) g/dL RDW (12.0-15.0) % Plt Count (130-450) 10^3/uL MPV (7.4-11.4) fL Neut # (Auto) (1.5-6.6) 10^3/uL Lymph # (Auto) (1.5-3.5) 10^3/uL [place] # (Auto) (0.0-1.0) 10^3/uL Eos # (Auto) (0.0-0.7) 10^3/uL Baso # (Auto) (0.0-0.1) 10^3/uL Absolute Nucleated RBC x10^3/uL Nucleated RBC % /100WBC PT 22.2 H (9.9-12.6) secs INR 2.0 H (0.8-1.2) Sodium 139 (135-145) mmol/L Potassium 3.7 (3.5-5.0) mmol/L Chloride 107 (101-111) mmol/L Carbon Dioxide 24 (21-32) mmol/L Anion Gap 8.0 (6-13) BUN 13 (6-20) mg/dL Creatinine 0.9 (0.6-1.2) mg/dL Estimated GFR (MDRD) 83 L (>89) Glucose 192 H (70-100) mg/dL POC Whole Bld Glucose 201 H (70 - 100) mg/dL Calcium 8.3 L (8.5-10.3) mg/dL Last Dose Date Last Dose Time Vancomycin Trough (10.0-20.0) ug/mL 01/29/22 01/28/22 Range/Units 07:06 20:29 WBC 7.3 (4.8-10.8) x10^3/uL RBC 4.35 L (4.70-6.10) 10^6/uL Hgb 13.2 L (14.0-18.0) g/dL Hct 39.4 L (42.0-52.0) % MCV 90.6 (80.0-94.0) fL MCH 30.3 (27.0-31.0) pg MCHC 33.5 (32.0-36.0) g/dL RDW 13.1 (12.0-15.0) % Plt Count 183 (130-450) 10^3/uL MPV 11.5 H (7.4-11.4) fL Neut # (Auto) 5.4 (1.5-6.6) 10^3/uL Lymph # (Auto) 1.2 L (1.5-3.5) 10^3/uL [place] # (Auto) 0.5 (0.0-1.0) 10^3/uL Eos # (Auto) 0.1 (0.0-0.7) 10^3/uL Baso # (Auto) 0.1 (0.0-0.1) 10^3/uL Absolute Nucleated RBC 0.00 x10^3/uL Nucleated RBC % 0.0 /100WBC PT (9.9-12.6) secs INR (0.8-1.2) Sodium (135-145) mmol/L Potassium (3.5-5.0) mmol/L Chloride (101-111) mmol/L Carbon Dioxide (21-32) mmol/L Anion Gap (6-13) BUN (6-20) mg/dL Creatinine (0.6-1.2) mg/dL Estimated GFR (MDRD) (>89) Glucose (70-100) mg/dL POC Whole Bld Glucose 180 H (70 - 100) mg/dL Calcium (8.5-10.3) mg/dL Last Dose Date Last Dose Time Vancomycin Trough (10.0-20.0) ug/mL - Current Medications Current Medications: Current Medications Generic Name Dose Route Start Last Admin Trade Name Freq PRN Reason Stop Dose Admin Acetaminophen 650 mg 01/25/22 18:41 01/27/22 21:37 Acetaminophen 325 Mg Tablet PO 650 mg Q4HR PRN Administration Pain 1 to 4, or Fever Atorvastatin Calcium 40 mg 01/25/22 21:00 01/28/22 20:50 Atorvastatin 40 Mg Tablet PO 40 mg QPM [place] Administration Diphenhydramine HCl 50 mg 01/25/22 21:51 01/28/22 23:43 Diphenhydramine 25 Mg Capsule PO 50 mg QPM PRN Administration Insomnia Duloxetine HCl 60 mg 01/26/22 09:00 01/29/22 07:52 Duloxetine 30 Mg Capsule PO 60 mg DAILY [place] Administration Hydromorphone HCl 0.5 mg 01/25/22 18:41 01/27/22 13:58 Hydromorphone 0.5 Mg/0.5 Ml Syringe IVP 0.5 mg Q8H PRN Administration Pain 8 to 10 Piperacillin Sod/Tazobactam 100 mls @ 200 mls/hr 01/27/22 00:00 01/29/22 13:35 Sod 3.375 gm/ Sodium Chloride IV Infused Q6H [place] Infusion Insulin Human Lispro 5 unit 01/28/22 12:00 01/29/22 12:09 Insulin Lispro 300 Unit/3 Ml Pen SUBQ 5 unit TIDWM [place] Administration Protocol Insulin Human Lispro 3 - 11 unit 01/28/22 11:11 01/29/22 12:10 Insulin Lispro 300 Unit/3 Ml Pen SUBQ 5 unit 0800,1200,1700,2100 [place] Administration Protocol Metoprolol Succinate 25 mg 01/26/22 09:00 01/29/22 07:52 Metoprolol Succinate 25 Mg Tablet PO 25 mg DAILY [place] Administration Multivitamins/Minerals 1 tab 01/29/22 08:00 01/29/22 07:52 Multivitamin W/Minerals Tablet PO 1 tab DAILYWM [place] Administration Ondansetron HCl 4 mg 01/25/22 18:41 01/29/22 10:21 Ondansetron 4 Mg/2 Ml Vial IVP 4 mg Q6HR PRN Administration Nausea / Vomiting Oxycodone HCl 5 mg 01/25/22 18:41 01/29/22 14:31 Oxycodone 5 Mg Tablet PO 5 mg Q4HR PRN Administration Pain 5 to 7 Polyethylene Glycol 17 gm 01/29/22 09:00 01/29/22 10:21 Polyethylene Glycol 3350 17 Gm Packet PO 17 gm DAILY [place] Administration Senna 8.6 - 17.2 mg 01/28/22 12:00 01/29/22 07:52 Senna 8.6 Mg Tablet PO 8.6 mg DAILY [place] Administration Sodium Chloride 10 ml 01/25/22 18:41 01/29/22 06:27 Sodium Chloride Flush 0.9% 10 Ml Syringe IVP 10 ml PRN PRN Administration NEEDED PER PROVIDER ORDERS Sodium Chloride 10 ml 01/26/22 01:00 01/29/22 07:53 Sodium Chloride Flush 0.9% 10 Ml Syringe IVP 10 ml 0100,0900,1700 [facility] Administration - Physical Exam Comments/Other: Frequent dressing changes that are decreasing secondary to bleeding of open wound at operative site. 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 His anticoagulation has been held and he has been getting bulky compression dressings to the left foot. His drainage from bleeding has decreased. The dressing is dry at the time of my evaluation to his left foot. He needs to avoid weightbearing and keep weight off of left foot. His cultures are pending from surgical tissue.Discussed case with Dr. Medina to hold anticoagulation
--- NOTE | 2022-01-29 17:12 | PROVIDER PROGRESS NOTE ---
Assessment/Plan - Problem List (1) Diabetic foot infection Assessment/Plan: He had malodorous drainage from a longstanding wound of foot. X-ray of the left foot was read as osteomyelitis. WBC has been normal but CRP was elevated at 19.6 and has decreased after starting iv antibx. Lactic acid was 3.5 and has normalized. Patient was given Vancomycin and Cipro in ED. We ordered Vancomycin and Zosyn and not Cipro. IV hydration with normal saline was started at 100 mL/h. His blood cultures are neg to date. Wound culture is growing MSSA. Dr. Kenton Cloud with orthopedic surgery consulted and has seen him daily, and did debrided at bedside. Today, he was taken to the OR for extensive debridement. We asked Ortho to send wound samples for aerobic and anaerobic cultures (2) Cellulitis of left foot Conclusion/Plan: As above. (3) MSSA infection Conclusion/Plan: Will stop the Vanco and continue Zosyn and will de-escalate antibx based on sensitivities. (4) Uncontrolled type 2 diabetes mellitus Conclusion/Plan: Patient's blood glucose at presentation was 859. Patient is nonadherent to diabetic medications (because of no active prescription while changing doctors and/or no Insurance coverage, he said). Hemoglobin A1c is Lantus at bedtime ordered. High-dose sliding scale insulin ordered. Will start nutritional Insulin, discussed with Klaus Nelson. Qualifiers: Glycemic state: with hyperglycemia Qualified Code(s): E11.65 - Type 2 diabetes mellitus with hyperglycemia (5) Atrial fibrillation Conclusion/Plan: His HR is controlled, we are continuing him on metoprolol succinate 25 mg p.o. daily. Coumadin 5-7.5 mg p.o. daily. Target INR is 2-3. Will follow INR daily. Starting yesterday, Coumadin was be stopped andwe started bridging with Lovenox 1 mg/kilogram SQ twice daily, in preparation for more extensive surgery. Today, after surgery was done, Dr Cloud wants no Coumadin yet for 2 hours. (6) Hx of CHF (congestive heart failure) Conclusion/Plan: He is not in CHF exacerbation We are continuing his Metoprolol succinate 25 mg p.o. daily. Lasix held while hydrating patient. (7) Hyperlipidemia Conclusion/Plan: Atorvastatin 40 mg p.o. nightly continuing (8) Hypertension Conclusion/Plan: On metoprolol succinate (and he used to be on Lasix). (9) Morbid obesity with BMI 40-45 Conclusion/Plan: As per Hx. We requested a Consulting Sales Executive consult. (10) N/V Conclusion/Plan: Resolved. N/V improved since starting Reglan scheduled, which was given for 1 day. It was likely due to gastroparesis, given the poorly controlled diabetes, and we started Reglan scheduled. Will make Reglan prn not scheduled. Pt was told to ask for it. - Current Meds Current Meds: Current Medications Generic Name Dose Route Start Last Admin Trade Name Freq PRN Reason Stop Dose Admin Acetaminophen 650 mg 01/25/22 18:41 01/27/22 21:37 Acetaminophen 325 Mg Tablet PO 650 mg Q4HR PRN Administration Pain 1 to 4, or Fever Atorvastatin Calcium 40 mg 01/25/22 21:00 01/28/22 20:50 Atorvastatin 40 Mg Tablet PO 40 mg QPM [place] Administration Diphenhydramine HCl 50 mg 01/25/22 21:51 01/28/22 23:43 Diphenhydramine 25 Mg Capsule PO 50 mg QPM PRN Administration Insomnia Duloxetine HCl 60 mg 01/26/22 09:00 01/29/22 07:52 Duloxetine 30 Mg Capsule PO 60 mg DAILY [place] Administration Hydromorphone HCl 0.5 mg 01/25/22 18:41 01/27/22 13:58 Hydromorphone 0.5 Mg/0.5 Ml Syringe IVP 0.5 mg Q8H PRN Administration Pain 8 to 10 Piperacillin Sod/Tazobactam 100 mls @ 200 mls/hr 01/27/22 00:00 01/29/22 13:35 Sod 3.375 gm/ Sodium Chloride IV Infused Q6H [place] Infusion Insulin Human Lispro 5 unit 01/28/22 12:00 01/29/22 12:09 Insulin Lispro 300 Unit/3 Ml Pen SUBQ 5 unit TIDWM [place] Administration Protocol Insulin Human Lispro 3 - 11 unit 01/28/22 11:11 01/29/22 12:10 Insulin Lispro 300 Unit/3 Ml Pen SUBQ 5 unit 0800,1200,1700,2100 [place] Administration Protocol Metoprolol Succinate 25 mg 01/26/22 09:00 01/29/22 07:52 Metoprolol Succinate 25 Mg Tablet PO 25 mg DAILY [place] Administration Multivitamins/Minerals 1 tab 01/29/22 08:00 01/29/22 07:52 Multivitamin W/Minerals Tablet PO 1 tab DAILYWM [place] Administration Ondansetron HCl 4 mg 01/25/22 18:41 01/29/22 10:21 Ondansetron 4 Mg/2 Ml Vial IVP 4 mg Q6HR PRN Administration Nausea / Vomiting Oxycodone HCl 5 mg 01/25/22 18:41 01/29/22 14:31 Oxycodone 5 Mg Tablet PO 5 mg Q4HR PRN Administration Pain 5 to 7 Polyethylene Glycol 17 gm 01/29/22 09:00 01/29/22 10:21 Polyethylene Glycol 3350 17 Gm Packet PO 17 gm DAILY [place] Administration Senna 8.6 - 17.2 mg 01/28/22 12:00 01/29/22 07:52 Senna 8.6 Mg Tablet PO 8.6 mg DAILY [place] Administration Sodium Chloride 10 ml 01/25/22 18:41 01/29/22 06:27 Sodium Chloride Flush 0.9% 10 Ml Syringe IVP 10 ml PRN PRN Administration NEEDED PER PROVIDER ORDERS Sodium Chloride 10 ml 01/26/22 01:00 01/29/22 07:53 Sodium Chloride Flush 0.9% 10 Ml Syringe IVP 10 ml 0100,0900,1700 [place] Administration - Lab Result Fish Bone Diagrams: 01/29/22 14:18 01/29/22 07:06 - Additional Planning My Orders: My Active Orders 01/28/22 Dinner Carb-controlled Diet [DIET] 01/29/22 08:00 Multivitamin W/Minerals [Theragran M] 1 tab PO DAILYWM 01/29/22 09:00 polyethylene glycoL 3350 [Miralax] 17 gm PO DAILY Subjective - Subjective Patient Reports: Resting Comfortably Objective Vital Signs: Vital Signs - 24 hr 01/28/22 01/28/22 01/28/22 18:13 20:22 23:49 Temperature 36.6 C 36.9 C 36.9 C Heart Rate [ 77 83 84 Brachial] Respiratory 19 18 18 Rate Blood Pressure 153/89 H 146/85 H 119/55 L [Right Brachial artery] O2 Saturation 96 97 96 01/29/22 01/29/22 01/29/22 04:49 10:00 13:15 Temperature 36.4 C L 36.7 C 36.5 C Heart Rate [ 91 80 81 Brachial] Respiratory 18 18 16 Rate Blood Pressure 143/86 H 131/84 H 122/74 [Right Brachial artery] O2 Saturation 98 97 96 01/29/22 15:40 Temperature 36.6 C Heart Rate [ 82 Brachial] Respiratory 16 Rate Blood Pressure 133/74 H [Right Brachial artery] O2 Saturation 96 Oxygen O2 Source [With Activity] Room air O2 Source Room air I&O (Last 24 Hrs): Intake and Output Totals x24h 01/27/22 01/28/22 01/29/22 23:59 23:59 23:59 Intake Total 4521.666 4020 1810 Output Total 1999 2225 1065 Balance 2521.666 1795 745 General: Alert, Oriented x3 HEENT: Atraumatic, Mucous membr. moist/pink Neck: Supple, No JVD Neuro: Alert Cardiovascular: No murmurs Respiratory: No respiratory distress Abdomen: Soft (Obese with a pannus) Extremities: Other (Entire L foot and ankle is bandaged. 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.) - Results Results: Laboratory Results WBC 7.6 x10^3/uL (4.8-10.8) 01/29/22 14:18 RBC 4.20 10^6/uL (4.70-6.10) L 01/29/22 14:18 Hgb 13.0 g/dL (14.0-18.0) L 01/29/22 14:18 Hct 38.1 % (42.0-52.0) L 01/29/22 14:18 MCV 90.7 fL (80.0-94.0) 01/29/22 14:18 MCH 31.0 pg (27.0-31.0) 01/29/22 14:18 MCHC 34.1 g/dL (32.0-36.0) 01/29/22 14:18 RDW 13.2 % (12.0-15.0) 01/29/22 14:18 Plt Count 176 10^3/uL (130-450) 01/29/22 14:18 MPV 11.2 fL (7.4-11.4) 01/29/22 14:18 Neut # (Auto) 5.4 10^3/uL (1.5-6.6) 01/29/22 07:06 Lymph # (Auto) 1.2 10^3/uL (1.5-3.5) L 01/29/22 07:06 [place] # (Auto) 0.5 10^3/uL (0.0-1.0) 01/29/22 07:06 Eos # (Auto) 0.1 10^3/uL (0.0-0.7) 01/29/22 07:06 Baso # (Auto) 0.1 10^3/uL (0.0-0.1) 01/29/22 07:06 Absolute Nucleated RBC 0.00 x10^3/uL 01/29/22 07:06 Nucleated RBC % 0.0 /100WBC 01/29/22 07:06 ESR 12 mm/Hr (0-20) 01/25/22 14:27 PT 22.2 secs (9.9-12.6) H 01/29/22 07:06 INR 2.0 (0.8-1.2) H 01/29/22 07:06 Sodium 139 mmol/L (135-145) 01/29/22 07:06 Potassium 3.7 mmol/L (3.5-5.0) 01/29/22 07:06 Chloride 107 mmol/L (101-111) 01/29/22 07:06 Carbon Dioxide 24 mmol/L (21-32) 01/29/22 07:06 Anion Gap 8.0 (6-13) 01/29/22 07:06 BUN 13 mg/dL (6-20) 01/29/22 07:06 Creatinine 0.9 mg/dL (0.6-1.2) 01/29/22 07:06 Estimated GFR (MDRD) 83 (>89) L 01/29/22 07:06 Glucose 192 mg/dL (70-100) H 01/29/22 07:06 POC Whole Bld Glucose 213 mg/dL (70 - 100) H 01/29/22 12:02 Estimat Average Glucose 384 mg/dL (70-100) H 01/26/22 05:32 Hemoglobin A1c % 15.0 % (4.27-6.07) H 01/26/22 05:32 Lactic Acid 1.0 mmol/L (0.5-2.2) 01/26/22 07:04 Calcium 8.3 mg/dL (8.5-10.3) L 01/29/22 07:06 Phosphorus 3.1 mg/dL (2.5-4.6) 01/26/22 05:32 Magnesium 1.9 mg/dL (1.7-2.8) 01/26/22 05:32 Total Bilirubin 1.0 mg/dL (0.2-1.0) 01/25/22 14:35 Direct Bilirubin 0.2 mg/dL (0.1-0.5) 01/25/22 14:35 AST 19 IU/L (10-42) 01/25/22 14:35 ALT 17 IU/L (10-60) 01/25/22 14:35 Alkaline Phosphatase 107 IU/L (42-121) 01/25/22 14:35 C-Reactive Protein 5.7 mg/dL (0-1.0) H 01/28/22 05:11 Total Protein 7.0 g/dL (6.7-8.2) 01/25/22 14:35 Albumin 2.9 g/dL (3.2-5.5) L 01/26/22 05:32 Globulin 4.1 g/dL (2.1-4.2) 01/25/22 14:35 Nasal Adenovirus (PCR) NOT DETECTED 01/25/22 17:15 Nasal B. parapertussis DNA (PCR) NOT DETECTED 01/25/22 17:15 Nasal Coronavir 229E PCR NOT DETECTED 01/25/22 17:15 Nasal Coronavir HKU1 PCR NOT DETECTED 01/25/22 17:15 Nasal Coronavir NL63 PCR NOT DETECTED 01/25/22 17:15 Nasal Coronavir OC43 PCR NOT DETECTED 01/25/22 17:15 Nasal Enterovir/Rhinovir PCR NOT DETECTED 01/25/22 17:15 Nasal Influenza B PCR NOT DETECTED 01/25/22 17:15 Nasal Influenza A PCR NOT DETECTED 01/25/22 17:15 Nasal Parainfluen 1 PCR NOT DETECTED 01/25/22 17:15 Nasal Parainfluen 2 PCR NOT DETECTED 01/25/22 17:15 Nasal Parainfluen 3 PCR NOT DETECTED 01/25/22 17:15 Nasal Parainfluen 4 PCR NOT DETECTED 01/25/22 17:15 Nasal RSV (PCR) NOT DETECTED 01/25/22 17:15 Nasal B.pertussis DNA PCR NOT DETECTED 01/25/22 17:15 Nasal C.pneumoniae (PCR) NOT DETECTED 01/25/22 17:15 Billy Human Metapneumo PCR NOT DETECTED 01/25/22 17:15 Nasal M.pneumoniae (PCR) NOT DETECTED 01/25/22 17:15 Nasal SARS-CoV-2 (PCR) NOT DETECTED 01/25/22 17:15 Last Dose Date UNK 01/29/22 09:31 Last Dose Time UNK 01/29/22 09:31 Vancomycin Trough 10.2 ug/mL (10.0-20.0) 01/29/22 09:31 - Procedures Procedures: Procedures EXCIS DEBRIDE OF WOUND, INFECT, OR BURN (11/16/13) SERUM TRANSFUSION NEC (11/16/13) TOE AMPUTATION (03/18/14) VENOUS CATHETERIZATION NEC (12/08/14) Sepsis Event Note (H) - Evaluation Possible source of Sepsis: positive: Bone/Joint, Skin/soft tissue - Sepsis Criteria Sepsis Criteria: Metabolic: lactate > 2 mmol/L
[2022-01-29] MEDS: ATORVASTATIN 40 MG TABLET PO SCH (20:48)
[2022-01-29] MEDS ORDERED: INSULIN GLARGINE 300 UNIT/3 ML PEN SUBQ SCH (21:00)
[2022-01-29] MEDS: ACETAMINOPHEN 325 MG TABLET PO PRN (22:45)
[2022-01-30] MEDS: PIPERACILLIN/TAZOBACTAM 3.375 GM in SODIUM CHLORIDE 0.9% MINIBAG 100 ML IV SCH ×5 (00:36→23:54)
[2022-01-30] MEDS: SODIUM CHLORIDE FLUSH 0.9% 10 ML SYRINGE IVP SCH ×4 (00:36→23:49)
[2022-01-30] MEDS ORDERED: SODIUM CHLORIDE 0.9% 250 ML IV ONE (00:39)
[2022-01-30] MEDS: ACETAMINOPHEN 325 MG TABLET PO PRN ×2 (05:49→11:51)
[2022-01-30] MEDS: oxyCODONE 5 MG TABLET PO PRN ×4 (05:49→23:05)
[2022-01-30] MEDS: INSULIN LISPRO 300 UNIT/3 ML PEN SUBQ SCH ×7 (07:53→21:02)
[2022-01-30] MEDS: DOCUSATE SODIUM 250 MG CAPSULE PO SCH (07:54)
[2022-01-30] MEDS: polyethylene glycoL 3350 17 GM PACKET PO SCH (07:54)
[2022-01-30] MEDS: SENNA 8.6 MG TABLET PO SCH (07:55)
[2022-01-30] MEDS: METOPROLOL SUCCINATE 25 MG TABLET PO SCH (07:55)
[2022-01-30] MEDS: DULoxetine 30 MG CAPSULE PO SCH (07:55)
[2022-01-30] MEDS: MULTIVITAMIN W/MINERALS TABLET PO SCH (07:55)
[2022-01-30] MEDS: SODIUM CHLORIDE FLUSH 0.9% 10 ML SYRINGE IVP PRN ×3 (11:52→17:53)
--- NOTE | 2022-01-30 13:46 | PROVIDER PROGRESS NOTE ---
Progress Note January 30, 2022 1:41 PM Continues to have oozing off that foot. Lovenox has been held. Orthopedics is reevaluating today to decide when and if he is going to need a wound VAC. We are worried that putting on the wound VAC is going to exacerbate oozing of blood. Otherwise the patient is stable. Foot hurts. But not severely. He denies any chest pain, palpitation shortness of breath. He is eating 100% of his food. Glucose is still in the mid 200 range and orthopedics would like a goal of 150 range. Active Medications Acetaminophen (Acetaminophen 325 Mg Tablet) 650 mg PO Q4HR PRN PRN Reason: Pain 1 to 4, or Fever Last Admin: 01/30/22 11:51 Dose: 650 mg Atorvastatin Calcium (Atorvastatin 40 Mg Tablet) 40 mg PO QPM [place] Last Admin: 01/29/22 20:48 Dose: 40 mg Diphenhydramine HCl (Diphenhydramine 25 Mg Capsule) 50 mg PO QPM PRN PRN Reason: Insomnia Last Admin: 01/28/22 23:43 Dose: 50 mg Docusate Sodium (Docusate Sodium 250 Mg Capsule) 250 - 500 mg PO DAILY [place] Last Admin: 01/30/22 07:54 Dose: 250 mg Duloxetine HCl (Duloxetine 30 Mg Capsule) 60 mg PO DAILY [place] Last Admin: 01/30/22 07:55 Dose: 60 mg Hydromorphone HCl (Hydromorphone 0.5 Mg/0.5 Ml Syringe) 0.5 mg IVP Q8H PRN PRN Reason: Pain 8 to 10 Last Admin: 01/27/22 13:58 Dose: 0.5 mg Piperacillin Sod/Tazobactam (Sod 3.375 gm/ Sodium Chloride) 100 mls @ 200 mls/hr IV Q6H [facility] Last Infusion: 01/30/22 12:20 Dose: Infused Insulin Glargine (Insulin Glargine 300 Unit/3 Ml Pen) 25 unit SUBQ QPM [place] Insulin Human Lispro (Insulin Lispro 300 Unit/3 Ml Pen) 5 unit SUBQ TIDWM [facility]; Protocol Last Admin: 01/30/22 11:50 Dose: 5 unit Insulin Human Lispro (Insulin Lispro 300 Unit/3 Ml Pen) 3 - 11 unit SUBQ 0800,1200,1700,2100 [facility]; Protocol Last Admin: 01/30/22 11:51 Dose: 7 unit Metoclopramide HCl (Metoclopramide 10 Mg/2 Ml Vial) 5 mg IVP Q6H PRN PRN Reason: Nausea / Vomiting Last Admin: 01/30/22 11:52 Dose: 5 mg Metoprolol Succinate (Metoprolol Succinate 25 Mg Tablet) 25 mg PO DAILY [facility] Last Admin: 01/30/22 07:55 Dose: 25 mg Multivitamins/Minerals (Multivitamin W/Minerals Tablet) 1 tab PO DAILYWM [facility] Last Admin: 01/30/22 07:55 Dose: 1 tab Ondansetron HCl (Ondansetron 4 Mg/2 Ml Vial) 4 mg IVP Q6HR PRN PRN Reason: Nausea / Vomiting Last Admin: 01/29/22 10:21 Dose: 4 mg Oxycodone HCl (Oxycodone 5 Mg Tablet) 5 mg PO Q4HR PRN PRN Reason: Pain 5 to 7 Last Admin: 01/30/22 11:52 Dose: 5 mg Polyethylene Glycol (Polyethylene Glycol 3350 17 Gm Packet) 17 gm PO DAILY [facility] Last Admin: 01/30/22 07:54 Dose: 17 gm Senna (Senna 8.6 Mg Tablet) 8.6 - 17.2 mg PO DAILY [facility] Last Admin: 01/30/22 07:55 Dose: 17.2 mg Sodium Chloride (Sodium Chloride Flush 0.9% 10 Ml Syringe) 10 ml IVP PRN PRN PRN Reason: NEEDED PER PROVIDER ORDERS Last Admin: 01/30/22 11:52 Dose: 10 ml Sodium Chloride (Sodium Chloride Flush 0.9% 10 Ml Syringe) 10 ml IVP 0100,0900,1700 [facility] Last Admin: 01/30/22 06:40 Dose: 10 ml Furosemide [Lasix] 80 mg PO DAILY 12/01/12 Warfarin Sodium [Coumadin] 5 mg PO DAILY 12/01/12 Atorvastatin Calcium 40 mg PO QPM 05/31/20 Metoprolol Succinate [Toprol Xl] 25 mg PO BID 11/16/20 Dulaglutide [Trulicity] 0.75 mg SUBQ Q7D 01/26/22 Duloxetine HCl [Cymbalta] 60 mg PO DAILY 01/26/22 Insulin Glargine,Hum.rec.anlog [Deborah Fields U-100] 13 unit SUBQ QPM 01/26/22 Metformin HCl [Metformin ER Osmotic] 1,000 mg PO DAILY 01/26/22 Tamsulosin [Flomax] 0.4 mg PO DAILY 01/26/22 Temperature is 36.6. Heart rate 82. Blood pressure 135/78. Respirations 18. 97% on room air. Is 6 foot 2 inch male at 152 kg,, sitting up in chair, comfortable. Neck is supple. Shotty adenopathy. Lungs are clear to auscultation and percussion. No increased respiratory effort, he is comfortable, oxygenating well Regular rate and rhythm without a murmur or gallop Abdomen is slightly distended, obese, soft, nontender. No organomegaly. Normal bowel sounds. Last bowel movement was January 26. Extremities have edema of his left leg.. Nonpitting. The right foot has an BKA. From mid purvis down the skin is slightly red. Wrapped. His Kerlix bandage still slightly draining blood. He is alert, oriented. Slightly deaf. Speaks in a loud voice. Follows commands. Able to sit up in a chair. White cell count is 7.6. His white cell count has been normal during his entire stay. Hemoglobin is 13. On admission 14.6. January 25 left foot culture with staph aureus January 25 blood cultures negative January 28 preliminary wound culture still with gram-positive cocci. No ID. Assessment/Plan (1) Post-op bleeding Impression: He has had debridement of the left foot osteomyelitis on 01/28. Unfortunately he was on Lovenox 150 mg subcutaneously twice daily. Surgery was cancelled and asked that he receive food and Lovenox. But then there was a change in the OR status and he went to the OR on full dose Lovenox. He has had some postoperative bleeding since then. Hemoglobin not severely low with this. Orthopedics is aware and has seen him postoperatively POD 0, POD 1 and today. He is currently doing dressing changes. Plan: Continue to hold Lovenox. At this time we are fairly confident the bleeding will stop on its own. Qualifiers: Surgical complication system/body Area: musculoskeletal system Procedure type: musculoskeletal Qualified Code(s): M96.830 - Postprocedural hemorrhage of a musculoskeletal structure following a musculoskeletal system procedure (2) Osteomyelitis of foot, left, acute Impression: Assessment/Plan: X-ray of the left foot was indicated of of osteomyelitis. WBC normal but CRP was elevated at 19.6 and has decreased after starting iv antibx. Lactic acid 3.5 and has normalized. Patient was started on Vancomycin and Cipro. With the culture showing MSSA, vancomycin discontinued. He was then changed to Zosyn because we feel that it is a multi organism infection in a diabetic foot infection. Day #6 of Zosyn IV hydration with normal saline at 100 mL/h stopped since he is eating and drinking Being followed by orthopedic surgery. He is being evaluated to see if he is a candidate for Wound Vac. (3) Cellulitis of left foot with MSSA infection Conclusion/Plan: As above (4) Pre-op evaluation Conclusion/Plan: This evaluation was done at admission: Owing to patient's age and medical comorbidities of uncontrolled diabetes, peripheral vascular disease, CHF, atrial fibrillation, history of smoking, hypertension patient has overall higher risk than average. EKG showed atrial fibrillation with PVCs. There is no significant change from previous EKG on 05/22/2018. Patient is currently optimized pending improvement in blood glucose levels. His risk of serious complication is 33.3% when compared to average risk of serious complication of 19.4%. Risk of any complication is 39.9% as opposed to the average risk of 22.2. Risk of cardiac complication 4.7% in comparison to average risk of 2.0. Risk of pneumonia 4.7% in comparison to 1.8. This information was discussed with the Orthopedic Surgeon, who said that he may need to be transferred to a facility with higher level of care, if the anesthesia risk is high. But surgery is not imminent, as per his consult, therefore will continue the patient's Coumadin at admission. After 3 days, ortho felt he did need to go to OR and bridged w lovenox. Because he continues to have oozing and is soaking his bandages, the Lovenox continues to be held temporarily. (5) N/V Conclusion/Plan: Resolved since starting scheduled Reglan The N/V started 7/16 a.m. after he started receiving iv antibiotics. There were no allergy side effect complaints however. The patient thinks it is from the antibiotics. He received iv Zofran but not much relief so was felt to be likely gastroparesis, given the poorly controlled diabetes, and we started Reglan scheduled. Will continue to monitor and reglan changed to prn. (6) Uncontrolled type 2 diabetes mellitus Conclusion/Plan: Patient's blood glucose at presentation was 859. Patient is nonadherent to diabetic medications (because of no script as changing doctors and/or Insurance non-coverage). Hemoglobin A1c is 15% Lantus at bedtime ordered. High-dose sliding scale insulin ordered. IV hydration with normal saline started and now stopped January 29 glucose 201, 213, 256, 237. 01/29 Increase lantus from 15 units to 20 units for goal of fasting <130 January 30 glucose 216, 245. I will increase Lantus to 25 units. Again goal is to have fasting less than 130 Qualifiers: Glycemic state: with hyperglycemia Qualified Code(s): E11.65 - Type 2 diabetes mellitus with hyperglycemia (7) Atrial fibrillation Conclusion/Plan: His HR is controlled, we are continuing him on metoprolol succinate 25 mg p.o. daily. Usual Coumadin 5-7.5 mg p.o. daily. Target INR is 2-3. His Coumadin was held January 27 with idea of him going to the OR January 28. He was on Lovenox. Lovenox discontinued because of bleeding. Will resume Lovenox and Coumadin once bleeding addressed this afternoon by orthopedics. (8) Hx of CHF (congestive heart failure) Conclusion/Plan: He is not in CHF exacerbation We are continuing his Metoprolol succinate 25 mg p.o. daily. We had held his Lasix while we were hydrating him. He says that he would like to have resumption of his normal Lasix today. We will order that. (9) Hyperlipidemia Conclusion/Plan: Atorvastatin 40 mg p.o. nightly continuing (10) Hypertension Conclusion/Plan: On metoprolol succinate (11) Morbid obesity with BMI 40-45 Conclusion/Plan: As per Hx. Nutrition services is following patient
[2022-01-30] MEDS: HYDROmorphone 0.5 MG/0.5 ML SYRINGE IVP PRN (13:51)
--- NOTE | 2022-01-30 14:26 | PROVIDER PROGRESS NOTE ---
Subjective - General Admit Date: 01/25/22 Procedure Date: 01/28/22 Post Op Days: 2 Procedure Performed: Irrigation debridement necrotic, infected diabetic ulcer overlying previous - Review of Systems Wound/Incisions: positive: Other. negative: Drainage (Bloody drainage into dressing) - Other Other Information/Narrative: Sitting in chair, alert, comfortable Feeling well today No acute concerns Objective - Patient Data Vital Signs: Vital Signs x48h Temp Pulse Resp BP Pulse Ox 01/30/22 07:32 36.6 C 82 18 135/78 H 97 Weight: Weight 01/28/22 01/29/22 01/30/22 23:59 23:59 23:59 Weight (kg) 152 kg Intake & Output: Intake and Output Totals x24h 01/28/22 01/29/22 01/30/22 23:59 23:59 23:59 Intake Total 4020 2378 1490 Output Total 2225 1690 900 Balance 1795 688 590 - Lab Results Lab Results: 01/29/22 14:18 01/29/22 07:06 Other Lab Results: Lab Results x24hrs 01/30/22 01/30/22 01/29/22 Range/Units 11:19 07:35 20:35 WBC (4.8-10.8) x10^3/uL RBC (4.70-6.10) 10^6/uL Hgb (14.0-18.0) g/dL Hct (42.0-52.0) % MCV (80.0-94.0) fL MCH (27.0-31.0) pg MCHC (32.0-36.0) g/dL RDW (12.0-15.0) % Plt Count (130-450) 10^3/uL MPV (7.4-11.4) fL POC Whole Bld Glucose 245 H 216 H 237 H (70 - 100) mg/dL 01/29/22 01/29/22 Range/Units 16:35 14:18 WBC 7.6 (4.8-10.8) x10^3/uL RBC 4.20 L (4.70-6.10) 10^6/uL Hgb 13.0 L (14.0-18.0) g/dL Hct 38.1 L (42.0-52.0) % MCV 90.7 (80.0-94.0) fL MCH 31.0 (27.0-31.0) pg MCHC 34.1 (32.0-36.0) g/dL RDW 13.2 (12.0-15.0) % Plt Count 176 (130-450) 10^3/uL MPV 11.2 (7.4-11.4) fL POC Whole Bld Glucose 256 H (70 - 100) mg/dL - Current Medications Current Medications: Current Medications Generic Name Dose Route Start Last Admin Trade Name Freq PRN Reason Stop Dose Admin Acetaminophen 650 mg 01/25/22 18:41 01/30/22 11:51 Acetaminophen 325 Mg Tablet PO 650 mg Q4HR PRN Administration Pain 1 to 4, or Fever Atorvastatin Calcium 40 mg 01/25/22 21:00 01/29/22 20:48 Atorvastatin 40 Mg Tablet PO 40 mg QPM [place] Administration Diphenhydramine HCl 50 mg 01/25/22 21:51 01/28/22 23:43 Diphenhydramine 25 Mg Capsule PO 50 mg QPM PRN Administration Insomnia Docusate Sodium 250 - 500 mg 01/30/22 09:00 01/30/22 07:54 Docusate Sodium 250 Mg Capsule PO 250 mg DAILY [place] Administration Duloxetine HCl 60 mg 01/26/22 09:00 01/30/22 07:55 Duloxetine 30 Mg Capsule PO 60 mg DAILY [place] Administration Hydromorphone HCl 0.5 mg 01/25/22 18:41 01/30/22 13:51 Hydromorphone 0.5 Mg/0.5 Ml Syringe IVP 0.5 mg Q8H PRN Administration Pain 8 to 10 Piperacillin Sod/Tazobactam 100 mls @ 200 mls/hr 01/27/22 00:00 01/30/22 12:20 Sod 3.375 gm/ Sodium Chloride IV Infused Q6H [place] Infusion Insulin Human Lispro 5 unit 01/28/22 12:00 01/30/22 11:50 Insulin Lispro 300 Unit/3 Ml Pen SUBQ 5 unit TIDWM [place] Administration Protocol Insulin Human Lispro 3 - 11 unit 01/28/22 11:11 01/30/22 11:51 Insulin Lispro 300 Unit/3 Ml Pen SUBQ 7 unit 0800,1200,1700,2100 [place] Administration Protocol Metoclopramide HCl 5 mg 01/28/22 11:10 01/30/22 11:52 Metoclopramide 10 Mg/2 Ml Vial IVP 5 mg Q6H PRN Administration Nausea / Vomiting Metoprolol Succinate 25 mg 01/26/22 09:00 01/30/22 07:55 Metoprolol Succinate 25 Mg Tablet PO 25 mg DAILY [place] Administration Multivitamins/Minerals 1 tab 01/29/22 08:00 01/30/22 07:55 Multivitamin W/Minerals Tablet PO 1 tab DAILYWM [place] Administration Ondansetron HCl 4 mg 01/25/22 18:41 01/29/22 10:21 Ondansetron 4 Mg/2 Ml Vial IVP 4 mg Q6HR PRN Administration Nausea / Vomiting Oxycodone HCl 5 mg 01/25/22 18:41 01/30/22 11:52 Oxycodone 5 Mg Tablet PO 5 mg Q4HR PRN Administration Pain 5 to 7 Polyethylene Glycol 17 gm 01/29/22 09:00 01/30/22 07:54 Polyethylene Glycol 3350 17 Gm Packet PO 17 gm DAILY [place] Administration Senna 8.6 - 17.2 mg 01/28/22 12:00 01/30/22 07:55 Senna 8.6 Mg Tablet PO 17.2 mg DAILY [place] Administration Sodium Chloride 10 ml 01/25/22 18:41 01/30/22 13:52 Sodium Chloride Flush 0.9% 10 Ml Syringe IVP 10 ml PRN PRN Administration NEEDED PER PROVIDER ORDERS Sodium Chloride 10 ml 01/26/22 01:00 01/30/22 06:40 Sodium Chloride Flush 0.9% 10 Ml Syringe IVP 10 ml 0100,0900,1700 [place] Administration - Physical Exam Comments/Other: No purulence or necrosis evident in wound on plantar surface of left foot Bleeding on exam from wound Alert and oriented 1+ edema in left lower extremity Impression/Plan - Problem List Problem List: 71 year old male with uncontrolled diabetes post-operative day 2 from debrideme nt and partial amputation of lesser toe metatarsal head. Performed beside debridement of wound Removed clotted blood, no sign of necrosis, no purulence Wound base bleeding during procedure Plan - Continue to hold anticoagulation (Lovenox) - Continue regular dressing changes - Consult placed by Hospitalist team to wound care for requested wound vac placement and care - Plan for delayed coverage of wound with possibility of amputation revision - Orthopedic team will continue to follow
[2022-01-30] MEDS: ATORVASTATIN 40 MG TABLET PO SCH (20:27)
[2022-01-30] MEDS ORDERED: MAGNESIUM HYDROXIDE 2,400 MG/30 ML UDC PO ONE (20:39)
[2022-01-30] MEDS: INSULIN GLARGINE 300 UNIT/3 ML PEN SUBQ SCH (21:02)
[2022-01-31] MEDS: PIPERACILLIN/TAZOBACTAM 3.375 GM in SODIUM CHLORIDE 0.9% MINIBAG 100 ML IV SCH ×4 (05:36→23:40)
[2022-01-31] MEDS: INSULIN LISPRO 300 UNIT/3 ML PEN SUBQ SCH ×7 (08:52→21:09)
[2022-01-31] MEDS: SENNA 8.6 MG TABLET PO SCH (08:54)
[2022-01-31] MEDS: oxyCODONE 5 MG TABLET PO PRN ×4 (08:54→22:56)
[2022-01-31] MEDS: MULTIVITAMIN W/MINERALS TABLET PO SCH (08:54)
[2022-01-31] MEDS: METOPROLOL SUCCINATE 25 MG TABLET PO SCH (08:55)
[2022-01-31] MEDS: DOCUSATE SODIUM 250 MG CAPSULE PO SCH (08:55)
[2022-01-31] MEDS: polyethylene glycoL 3350 17 GM PACKET PO SCH (08:55)
[2022-01-31] MEDS: DULoxetine 30 MG CAPSULE PO SCH (08:55)
[2022-01-31] MEDS: SODIUM CHLORIDE FLUSH 0.9% 10 ML SYRINGE IVP SCH ×3 (08:56→23:40)
--- NOTE | 2022-01-31 14:56 | PROVIDER PROGRESS NOTE ---
Subjective - General Admit Date: 01/25/22 Procedure Date: 01/28/22 Post Op Days: 3 Procedure Performed: Irrigation debridement necrotic, infected diabetic ulcer overlying previous - Review of Systems Wound/Incisions: positive: Other. negative: Drainage (Bloody drainage into dressing) - Other Other Information/Narrative: Patient denies any complaints with regard to his left foot Objective - Patient Data Vital Signs: Vital Signs x48h Temp Pulse Resp BP Pulse Ox 01/31/22 12:38 36.3 C L 81 18 122/65 97 01/31/22 07:53 36.8 C 82 16 118/62 96 Intake & Output: Intake and Output Totals x24h 01/29/22 01/30/22 01/31/22 23:59 23:59 23:59 Intake Total 2378 2820 500 Output Total 1690 1950 575 Balance 688 870 -75 - Lab Results Lab Results: 01/29/22 14:18 01/29/22 07:06 Other Lab Results: Lab Results x24hrs 01/30/22 01/30/22 Range/Units 21:01 16:40 POC Whole Bld Glucose 278 H 282 H (70 - 100) mg/dL - Current Medications Current Medications: Current Medications Generic Name Dose Route Start Last Admin Trade Name Freq PRN Reason Stop Dose Admin Acetaminophen 650 mg 01/25/22 18:41 01/30/22 11:51 Acetaminophen 325 Mg Tablet PO 650 mg Q4HR PRN Administration Pain 1 to 4, or Fever Atorvastatin Calcium 40 mg 01/25/22 21:00 01/30/22 20:27 Atorvastatin 40 Mg Tablet PO 40 mg QPM [place] Administration Diphenhydramine HCl 50 mg 01/25/22 21:51 01/28/22 23:43 Diphenhydramine 25 Mg Capsule PO 50 mg QPM PRN Administration Insomnia Docusate Sodium 250 - 500 mg 01/30/22 09:00 01/31/22 08:55 Docusate Sodium 250 Mg Capsule PO 250 mg DAILY [place] Administration Duloxetine HCl 60 mg 01/26/22 09:00 01/31/22 08:55 Duloxetine 30 Mg Capsule PO 60 mg DAILY [place] Administration Hydromorphone HCl 0.5 mg 01/25/22 18:41 01/30/22 13:51 Hydromorphone 0.5 Mg/0.5 Ml Syringe IVP 0.5 mg Q8H PRN Administration Pain 8 to 10 Piperacillin Sod/Tazobactam 100 mls @ 200 mls/hr 01/27/22 00:00 01/31/22 12:52 Sod 3.375 gm/ Sodium Chloride IV Infused Q6H [place] Infusion Insulin Glargine 25 unit 01/30/22 21:00 01/30/22 21:02 Insulin Glargine 300 Unit/3 Ml Pen SUBQ 25 unit QPM [place] Administration Insulin Human Lispro 5 unit 01/28/22 12:00 01/31/22 11:53 Insulin Lispro 300 Unit/3 Ml Pen SUBQ 5 unit TIDWM [place] Administration Protocol Insulin Human Lispro 3 - 11 unit 01/28/22 11:11 01/31/22 11:53 Insulin Lispro 300 Unit/3 Ml Pen SUBQ 3 unit 0800,1200,1700,2100 [place] Administration Protocol Metoclopramide HCl 5 mg 01/28/22 11:10 01/30/22 11:52 Metoclopramide 10 Mg/2 Ml Vial IVP 5 mg Q6H PRN Administration Nausea / Vomiting Metoprolol Succinate 25 mg 01/26/22 09:00 01/31/22 08:55 Metoprolol Succinate 25 Mg Tablet PO 25 mg DAILY [place] Administration Multivitamins/Minerals 1 tab 01/29/22 08:00 01/31/22 08:54 Multivitamin W/Minerals Tablet PO 1 tab DAILYWM [place] Administration Ondansetron HCl 4 mg 01/25/22 18:41 01/29/22 10:21 Ondansetron 4 Mg/2 Ml Vial IVP 4 mg Q6HR PRN Administration Nausea / Vomiting Oxycodone HCl 5 mg 01/25/22 18:41 01/31/22 14:21 Oxycodone 5 Mg Tablet PO 5 mg Q4HR PRN Administration Pain 5 to 7 Polyethylene Glycol 17 gm 01/29/22 09:00 01/31/22 08:55 Polyethylene Glycol 3350 17 Gm Packet PO 17 gm DAILY [place] Administration Senna 8.6 - 17.2 mg 01/28/22 12:00 01/31/22 08:54 Senna 8.6 Mg Tablet PO 8.6 mg DAILY [place] Administration Sodium Chloride 10 ml 01/25/22 18:41 01/30/22 17:53 Sodium Chloride Flush 0.9% 10 Ml Syringe IVP 10 ml PRN PRN Administration NEEDED PER PROVIDER ORDERS Sodium Chloride 10 ml 01/26/22 01:00 01/31/22 08:56 Sodium Chloride Flush 0.9% 10 Ml Syringe IVP 10 ml 0100,0900,1700 [facility] Administration - Physical Exam Comments/Other: The dressing of the left foot was changed. There is serosanguineous drainage into the dressing. The ulcer base is clean, no pus or new necrosis. There is clotted blood but to lesser degree over the wound base than yesterday. There is no active bleeding from left foot. The surrounding skin adjacent to the ulcer is intact. Blisters have healed. Swelling to the foot has decreased. 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 Infection seems to be under control. He did have bleeding at the operative site open wound that is improving each day. His anticoagulation has been temporarily held. Is not showing any active infection, continue local wound care; I would recommend wound VAC in the future if this can be arranged. If not we will continue with local wound care. Since he does not have osteomyelitis, I do not think he has to be on prolonged intravenous antibiotics. He could be switched to oral antibiotic and followed as outpatient Ortho clinic.
--- NOTE | 2022-01-31 16:30 | PROVIDER PROGRESS NOTE ---
Progress Note January 31, 2022 4:27 PM Seen by orthopedics today. Dressing changed again. Bleeding is definitely getting less and less. He feels that the ulcer base is clean with no pus or new necrosis. They are recommending a wound VAC in the future if this can be arranged. But unfortunately he would have to place the wound VAC and then discharge the patient to then be taken care of by the wound clinic. The orthopedic surgeon is not comfortable with putting on wound VAC and will defer. Orthopedics does not feel he has osteomyelitis. He does not feel he needs prolonged IV antibiotics and feels he can be switched to oral and followed in the outpatient clinic. Temperature is 36.4. Heart rate 76. Blood pressure 117/64. Respirations 16. 95% on room air. He 6 feet 2 inches tall, weighs 152 kg Tall white male, sitting upright in chair, left leg elevated,. Dressing has some very slight tinge of blood coming through. Neck is supple Lungs are clear with diminished breath sounds at the bases and no increased respiratory effort Regular rate and rhythm Abdomen soft, nontender Extremity: Right BKA next left foot in a bandage tightly compressed. Skin above the bandage is slightly ruborous but no redness or heat. Dressing changes done by orthopedics today and wound description per him. Alert, oriented. Last lab for CBC was done January 29. Last chemistry January 29. Wound culture staph aureus January 25 and staph lugdenesis January 28 Assessment/Plan current problems (1) Post-op bleeding Impression: He has had debridement of the left foot osteomyelitis on 01/28. Unfortunately he was on Lovenox 150 mg subcutaneously twice daily. Surgery was cancelled and asked that he receive food and Lovenox. But then there was a change in the OR status and he went to the OR on full dose Lovenox. He has had some postoperative bleeding since then. Hemoglobin not severely low with this. Orthopedics is aware and has seen him postoperatively daily with dressing changes. Plan: Continue to hold Lovenox. Bleeding is slowing down. We will anticipate starting Coumadin in the next day or 2. Qualifiers: Surgical complication system/body Area: musculoskeletal system Procedure type: musculoskeletal Qualified Code(s): M96.830 - Postprocedural hemorrhage of a musculoskeletal structure following a musculoskeletal system procedure (2) Cellulitis of left foot/Soft tissue necrosis left foot with MSSA infection Conclusion/Plan: On admit patient was started on Vancomycin and Cipro. With the culture showing MSSA, vancomycin discontinued. X-ray of the left foot was indicated of of osteomyelitis. WBC normal but CRP was elevated at 19.6 and has decreased after starting iv antibx. Lactic acid 3.5 and has normalized. He was then changed to Zosyn because we feel that it is a multi organism infection in a diabetic foot infection. Day #7 of Zosyn today IV hydration with normal saline at 100 mL/h stopped since he is eating and drinking Being followed by orthopedic surgery. He does not feel the patient has osteomyelitis. Only a soft tissue wound infection. While he does seem the patient is a candidate for wound VAC next week, he says that he is not comfortable putting those on so were left was trying to figure out the logistics. Our wound clinic states they will not put on the wound VAC unless the surgeon has already done so. We may be reaching out to general surgery to see if they will help. Since he does not have osteomyelitis, orthopedics feels comfortable having him changed to oral antibiotics. Plan: Consult with general surgery in the next few days for the wound VAC Discontinue Zosyn and change to Augmentin check CBC and CRP in am (3) Uncontrolled type 2 diabetes mellitus Conclusion/Plan: Patient's blood glucose at presentation was 859. Patient is nonadherent to diabetic medications (because of no script as changing doctors and/or Insurance non-coverage). Hemoglobin A1c is 15% Lantus at bedtime ordered. High-dose sliding scale insulin ordered. IV hydration with normal saline started and now stopped January 29 glucose 201, 213, 256, 237. 01/29 Increase lantus from 15 units to 20 units for goal of fasting <130 January 30 glucose 216, 245. I will increase Lantus to 25 units. Again goal is to have fasting less than 130 January 31 glucose 173 at breakfast and 173 before lunch Continue Lantus 25 units. Add 3 units with each meal of short acting insulin check BMP in am Qualifiers: Glycemic state: with hyperglycemia Qualified Code(s): E11.65 - Type 2 diabetes mellitus with hyperglycemia (4) Atrial fibrillation Conclusion/Plan: His HR is controlled, we are continuing him on metoprolol succinate 25 mg p.o. daily. Usual Coumadin 5-7.5 mg p.o. daily. Target INR is 2-3. His Coumadin was held January 27 with idea of him going to the OR January 28. He was on Lovenox. Lovenox discontinued because of bleeding. Will resume Lovenox and Coumadin once bleeding has stopped. today he has slowed down. Consider resuming coumadin tomorrow. Assessment/Plan for chronic or resolve problems (1) Pre-op evaluation Conclusion/Plan: This evaluation was done at admission: Owing to patient's age and medical comorbidities of uncontrolled diabetes, peripheral vascular disease, CHF, atrial fibrillation, history of smoking, hypertension patient has overall higher risk than average. EKG showed atrial fibrillation with PVCs. There is no significant change from previous EKG on 05/22/2018. Patient is currently optimized pending improvement in blood glucose levels. His risk of serious complication is 33.3% when compared to average risk of serious complication of 19.4%. Risk of any complication is 39.9% as opposed to the average risk of 22.2. Risk of cardiac complication 4.7% in comparison to average risk of 2.0. Risk of pneumonia 4.7% in comparison to 1.8. This information was discussed with the Orthopedic Surgeon, who said that he may need to be transferred to a facility with higher level of care, if the anesthesia risk is high. But surgery is not imminent, as per his consult, therefore will continue the patient's Coumadin at admission. After 3 days, ortho felt he did need to go to OR and bridged w lovenox. Because he continues to have oozing and is soaking his bandages, the Lovenox continues to be held temporarily. (2) N/V Conclusion/Plan: Resolved since starting scheduled Reglan The N/V started 7/16 a.m. after he started receiving iv antibiotics. There were no allergy side effect complaints however. The patient thinks it is from the antibiotics. He received iv Zofran but not much relief so was felt to be likely gastroparesis, given the poorly controlled diabetes, and we started Reglan scheduled. Will continue to monitor and reglan changed to prn. (3) Hx of CHF (congestive heart failure) Conclusion/Plan: He is not in CHF exacerbation We are continuing his Metoprolol succinate 25 mg p.o. daily. We had held his Lasix while we were hydrating him. He says that he would like to have resumption of his normal Lasix and that was done. (4) Hyperlipidemia Conclusion/Plan: Atorvastatin 40 mg p.o. nightly continuing (5) Hypertension Conclusion/Plan: On metoprolol succinate (6) Morbid obesity with BMI 40-45 Conclusion/Plan: As per Hx. Nutrition services is following patient
[2022-01-31] MEDS ORDERED: INSULIN ASPART 300 UNIT/3 ML PEN SUBQ SCH (17:00)
[2022-01-31] MEDS: INSULIN GLARGINE 300 UNIT/3 ML PEN SUBQ SCH (21:08)
[2022-01-31] MEDS: ATORVASTATIN 40 MG TABLET PO SCH (21:08)
[2022-01-31] MEDS ORDERED: ZINC OXIDE 20% OINT 30 GM TUBE TOP PRN (22:58)
[2022-02-01] MEDS: PIPERACILLIN/TAZOBACTAM 3.375 GM in SODIUM CHLORIDE 0.9% MINIBAG 100 ML IV SCH ×4 (05:31→23:41)
[2022-02-01] MEDS: oxyCODONE 5 MG TABLET PO PRN ×5 (05:38→23:41)
[2022-02-01 08:10] LABS: CALCIUM 8.5 mg/dL (8.5-10.3); CREATININE 1.1 mg/dL (0.6-1.2); POTASSIUM 3.7 mmol/L (3.5-5.0)
[2022-02-01] MEDS: polyethylene glycoL 3350 17 GM PACKET PO SCH (08:12)
[2022-02-01] MEDS: SENNA 8.6 MG TABLET PO SCH (08:12)
[2022-02-01] MEDS: NYSTATIN POWDER 15 GM TOP SCH ×2 (08:13→20:57)
[2022-02-01] MEDS: DULoxetine 30 MG CAPSULE PO SCH (08:13)
[2022-02-01] MEDS: FUROSEMIDE 40 MG TABLET PO SCH (08:13)
[2022-02-01] MEDS: METOPROLOL SUCCINATE 25 MG TABLET PO SCH (08:13)
[2022-02-01] MEDS: INSULIN LISPRO 300 UNIT/3 ML PEN SUBQ SCH ×7 (08:14→20:56)
[2022-02-01 08:15] LABS: BASOPHILS # (AUTO) 0.1 10^3/uL (0.0-0.1); BASOPHILS % (AUTO) 0.4 %; EOSINOPHILS # (AUTO) 0.2 10^3/uL (0.0-0.7); EOSINOPHILS % (AUTO) 1.6 %; HCT - HEMATOCRIT 35.8 % (42.0-52.0); HGB - HEMOGLOBIN 11.6 g/dL (14.0-18.0); LYMPHOCYTES # (AUTO) 1.6 10^3/uL (1.5-3.5); LYMPHOCYTES % (AUTO) 14.1 %; MEAN CORPUSCULAR HEMOGLOBIN 30.1 pg (27.0-31.0); MEAN CORPUSCULAR HGB CONC 32.4 g/dL (32.0-36.0); MEAN PLATELET VOLUME 11.8 fL (7.4-11.4); MONOCYTES # (AUTO) 0.7 10^3/uL (0.0-1.0); MONOCYTES % (AUTO) 5.9 %; NEUTROPHILS # (AUTO) 8.6 10^3/uL (1.5-6.6); PLT - PLATELET COUNT 223 10^3/uL (130-450); RED BLOOD COUNT 3.85 10^6/uL (4.70-6.10); RED CELL DISTRIBUTION WIDTH 13.3 % (12.0-15.0); WHITE BLOOD COUNT 11.1 x10^3/uL (4.8-10.8)
[2022-02-01] MEDS: MULTIVITAMIN W/MINERALS TABLET PO SCH (08:15)
[2022-02-01] MEDS: SODIUM CHLORIDE FLUSH 0.9% 10 ML SYRINGE IVP SCH ×3 (08:15→23:42)
[2022-02-01] MEDS: DOCUSATE SODIUM 250 MG CAPSULE PO SCH (08:15)
[2022-02-01 08:54] LABS: INR 1.2 (0.8-1.2); PT - PROTHROMBIN TIME 13.4 secs (9.9-12.6)
--- NOTE | 2022-02-01 10:25 | PROVIDER PROGRESS NOTE ---
Subjective - General Admit Date: 01/25/22 Procedure Date: 01/28/22 Post Op Days: 4 Procedure Performed: Irrigation debridement necrotic, infected diabetic ulcer overlying previous - Review of Systems Wound/Incisions: positive: Other. negative: Drainage General: positive: No symptoms - Other Other Information/Narrative: He has no complaints, feels fine. He sitting comfortably with leg elevated Objective - Patient Data Vital Signs: Vital Signs x48h Temp Pulse Resp BP Pulse Ox 02/01/22 07:39 36.8 C 77 20 126/73 97 Intake & Output: Intake and Output Totals x24h 01/30/22 01/31/22 02/01/22 23:59 23:59 23:59 Intake Total 2820 1290 320 Output Total 1950 1375 Balance 870 -85 320 - Lab Results Lab Results: 02/01/22 07:55 02/01/22 07:55 Other Lab Results: Lab Results x24hrs 02/01/22 02/01/22 02/01/22 Range/Units 08:42 07:55 07:55 WBC 11.1 H (4.8-10.8) x10^3/uL RBC 3.85 L (4.70-6.10) 10^6/uL Hgb 11.6 L (14.0-18.0) g/dL Hct 35.8 L (42.0-52.0) % MCV 93.0 (80.0-94.0) fL MCH 30.1 (27.0-31.0) pg MCHC 32.4 (32.0-36.0) g/dL RDW 13.3 (12.0-15.0) % Plt Count 223 (130-450) 10^3/uL MPV 11.8 H (7.4-11.4) fL Neut # (Auto) 8.6 H (1.5-6.6) 10^3/uL Lymph # (Auto) 1.6 (1.5-3.5) 10^3/uL [place] # (Auto) 0.7 (0.0-1.0) 10^3/uL Eos # (Auto) 0.2 (0.0-0.7) 10^3/uL Baso # (Auto) 0.1 (0.0-0.1) 10^3/uL Absolute Nucleated RBC 0.00 x10^3/uL Nucleated RBC % 0.0 /100WBC PT 13.4 H (9.9-12.6) secs INR 1.2 (0.8-1.2) Sodium 138 (135-145) mmol/L Potassium 3.7 (3.5-5.0) mmol/L Chloride 104 (101-111) mmol/L Carbon Dioxide 25 (21-32) mmol/L Anion Gap 9.0 (6-13) BUN 16 (6-20) mg/dL Creatinine 1.1 (0.6-1.2) mg/dL Estimated GFR (MDRD) 66 L (>89) Glucose 197 H (70-100) mg/dL Calcium 8.5 (8.5-10.3) mg/dL - Current Medications Current Medications: Current Medications Generic Name Dose Route Start Last Admin Trade Name Freq PRN Reason Stop Dose Admin Acetaminophen 650 mg 01/25/22 18:41 01/30/22 11:51 Acetaminophen 325 Mg Tablet PO 650 mg Q4HR PRN Administration Pain 1 to 4, or Fever Atorvastatin Calcium 40 mg 01/25/22 21:00 01/31/22 21:08 Atorvastatin 40 Mg Tablet PO 40 mg QPM [place] Administration Diphenhydramine HCl 50 mg 01/25/22 21:51 01/28/22 23:43 Diphenhydramine 25 Mg Capsule PO 50 mg QPM PRN Administration Insomnia Docusate Sodium 250 - 500 mg 01/30/22 09:00 02/01/22 08:15 Docusate Sodium 250 Mg Capsule PO Not Given DAILY [place] Duloxetine HCl 60 mg 01/26/22 09:00 02/01/22 08:13 Duloxetine 30 Mg Capsule PO 60 mg DAILY [place] Administration Furosemide 80 mg 02/01/22 09:00 02/01/22 08:13 Furosemide 40 Mg Tablet PO 80 mg DAILY [place] Administration Hydromorphone HCl 0.5 mg 01/25/22 18:41 01/30/22 13:51 Hydromorphone 0.5 Mg/0.5 Ml Syringe IVP 0.5 mg Q8H PRN Administration Pain 8 to 10 Piperacillin Sod/Tazobactam 100 mls @ 200 mls/hr 01/27/22 00:00 02/01/22 06: 19 Sod 3.375 gm/ Sodium Chloride IV Infused Q6H [place] Infusion Insulin Glargine 25 unit 01/30/22 21:00 01/31/22 21:08 Insulin Glargine 300 Unit/3 Ml Pen SUBQ 25 unit QPM [place] Administration Insulin Human Lispro 3 - 11 unit 01/28/22 11:11 02/01/22 08:14 Insulin Lispro 300 Unit/3 Ml Pen SUBQ 5 unit 0800,1200,1700,2100 [place] Administration Protocol Insulin Human Lispro 3 unit 01/31/22 16:44 02/01/22 08:15 Insulin Lispro 300 Unit/3 Ml Pen SUBQ 3 unit TIDWM [place] Administration Protocol Metoclopramide HCl 5 mg 01/28/22 11:10 01/30/22 11:52 Metoclopramide 10 Mg/2 Ml Vial IVP 5 mg Q6H PRN Administration Nausea / Vomiting Metoprolol Succinate 25 mg 01/26/22 09:00 02/01/22 08:13 Metoprolol Succinate 25 Mg Tablet PO 25 mg DAILY [place] Administration Multivitamins/Minerals 1 tab 01/29/22 08:00 02/01/22 08:15 Multivitamin W/Minerals Tablet PO 1 tab DAILYWM [place] Administration Nystatin 1 applic 02/01/22 09:00 02/01/22 08:13 Nystatin Powder 15 Gm TOP 1 applic BID [place] Administration Ondansetron HCl 4 mg 01/25/22 18:41 01/29/22 10:21 Ondansetron 4 Mg/2 Ml Vial IVP 4 mg Q6HR PRN Administration Nausea / Vomiting Oxycodone HCl 5 mg 01/25/22 18:41 02/01/22 05:38 Oxycodone 5 Mg Tablet PO 5 mg Q4HR PRN Administration Pain 5 to 7 Polyethylene Glycol 17 gm 01/29/22 09:00 02/01/22 08:12 Polyethylene Glycol 3350 17 Gm Packet PO Not Given DAILY [place] Senna 8.6 - 17.2 mg 01/28/22 12:00 02/01/22 08:12 Senna 8.6 Mg Tablet PO Not Given DAILY [place] Sodium Chloride 10 ml 01/25/22 18:41 01/30/22 17:53 Sodium Chloride Flush 0.9% 10 Ml Syringe IVP 10 ml PRN PRN Administration NEEDED PER PROVIDER ORDERS Sodium Chloride 10 ml 01/26/22 01:00 02/01/22 08:15 Sodium Chloride Flush 0.9% 10 Ml Syringe IVP 10 ml 0100,0900,1700 [facility] Administration - Physical Exam Wound/Incisions: positive: Dressing dry and intact Impression/Plan - Problem List Problem List: Diabetic forefoot ulcer from previous surgical excision of necrotic tissue, previous modified transmetatarsal amputation left foot. Cellulitis and active infection. To be well controlled now with surgical angelo ridement and antibiotics. The goal is to try to obtain secondary healing over the ulcer which seems to have a relatively good vascular base despite his diabetes and cigarette smoking. He is to be seen by wound care today, possible wound VAC application and discharge to home when felt to be stable by her hospitalist. He is to keep weight off of the forefoot, can pivot on heel for transfers. He is avoid all cigarette smoking, follow good diabetic practices to keep diabetes under control to ensure healing. He is to keep the left leg elevated. He has been instructed that if he cannot comply and that tissues do not show response to healing, revision or higher level of amputation will be nec essary.Discussed with her hospitalist, Miladys Salguero our wound care nurse. The importance of follow-up care was also emphasized to the patient.
--- NOTE | 2022-02-01 11:12 | PROVIDER PROGRESS NOTE ---
Subjective - Prog Note Date Prog Note Date: 02/01/22 Prog Note Time: 11:08 - Subjective Pt reports feeling: No change Subjective: 71 y.o. male sitting comfortably up in a chair. Per surgery his wound is ready for a wound vac if it is able to be placed in the wound clinic. WBC uptrending to 11.1 from 7.6 the day before. afebrile. wound healing. lower lobe crackles hear on auscultation, chest xray done to check for possible new source of infection. MSSA grown from blood and culture from 01/29 from the foot is growing strep. On IV zosyn. Current Medications - Current Medications Current Medications: Active Medications Acetaminophen (Acetaminophen 325 Mg Tablet) 650 mg PO Q4HR PRN PRN Reason: Pain 1 to 4, or Fever Last Admin: 01/30/22 11:51 Dose: 650 mg Atorvastatin Calcium (Atorvastatin 40 Mg Tablet) 40 mg PO QPM [facility] Last Admin: 01/31/22 21:08 Dose: 40 mg Diphenhydramine HCl (Diphenhydramine 25 Mg Capsule) 50 mg PO QPM PRN PRN Reason: Insomnia Last Admin: 01/28/22 23:43 Dose: 50 mg Docusate Sodium (Docusate Sodium 250 Mg Capsule) 250 - 500 mg PO DAILY [facility] Last Admin: 02/01/22 08:15 Dose: Not Given Duloxetine HCl (Duloxetine 30 Mg Capsule) 60 mg PO DAILY [facility] Last Admin: 02/01/22 08:13 Dose: 60 mg Furosemide (Furosemide 40 Mg Tablet) 80 mg PO DAILY [facility] Last Admin: 02/01/22 08:13 Dose: 80 mg Hydromorphone HCl (Hydromorphone 0.5 Mg/0.5 Ml Syringe) 0.5 mg IVP Q8H PRN PRN Reason: Pain 8 to 10 Last Admin: 01/30/22 13:51 Dose: 0.5 mg Piperacillin Sod/Tazobactam (Sod 3.375 gm/ Sodium Chloride) 100 mls @ 200 mls/hr IV Q6H [facility] Last Infusion: 02/01/22 06:19 Dose: Infused Insulin Glargine (Insulin Glargine 300 Unit/3 Ml Pen) 25 unit SUBQ QPM [facility] Last Admin: 01/31/22 21:08 Dose: 25 unit Insulin Human Lispro (Insulin Lispro 300 Unit/3 Ml Pen) 3 - 11 unit SUBQ 0800,1200,1700,2100 [facility]; Protocol Last Admin: 02/01/22 08:14 Dose: 5 unit Insulin Human Lispro (Insulin Lispro 300 Unit/3 Ml Pen) 3 unit SUBQ TIDWM [facility]; Protocol Last Admin: 02/01/22 08:15 Dose: 3 unit Metoclopramide HCl (Metoclopramide 10 Mg/2 Ml Vial) 5 mg IVP Q6H PRN PRN Reason: Nausea / Vomiting Last Admin: 01/30/22 11:52 Dose: 5 mg Metoprolol Succinate (Metoprolol Succinate 25 Mg Tablet) 25 mg PO DAILY [facility] Last Admin: 02/01/22 08:13 Dose: 25 mg Multi-Ingredient Ointment (Zinc Oxide 20% Oint 30 Gm Tube) 1 applic TOP PRN PRN PRN Reason: Skin Care Multivitamins/Minerals (Multivitamin W/Minerals Tablet) 1 tab PO DAILYWM [facility] Last Admin: 02/01/22 08:15 Dose: 1 tab Nystatin (Nystatin Powder 15 Gm) 1 applic TOP BID [facility] Last Admin: 02/01/22 08:13 Dose: 1 applic Ondansetron HCl (Ondansetron 4 Mg/2 Ml Vial) 4 mg IVP Q6HR PRN PRN Reason: Nausea / Vomiting Last Admin: 01/29/22 10:21 Dose: 4 mg Oxycodone HCl (Oxycodone 5 Mg Tablet) 5 mg PO Q4HR PRN PRN Reason: Pain 5 to 7 Last Admin: 02/01/22 05:38 Dose: 5 mg Polyethylene Glycol (Polyethylene Glycol 3350 17 Gm Packet) 17 gm PO DAILY [facility] Last Admin: 02/01/22 08:12 Dose: Not Given Senna (Senna 8.6 Mg Tablet) 8.6 - 17.2 mg PO DAILY [facility] Last Admin: 02/01/22 08:12 Dose: Not Given Sodium Chloride (Sodium Chloride Flush 0.9% 10 Ml Syringe) 10 ml IVP PRN PRN PRN Reason: NEEDED PER PROVIDER ORDERS Last Admin: 01/30/22 17:53 Dose: 10 ml Sodium Chloride (Sodium Chloride Flush 0.9% 10 Ml Syringe) 10 ml IVP 0100,0900,1700 [facility] Last Admin: 02/01/22 08:15 Dose: 10 ml Furosemide [Lasix] 80 mg PO DAILY 12/01/12 Warfarin Sodium [Coumadin] 5 mg PO DAILY 12/01/12 Atorvastatin Calcium 40 mg PO QPM 05/31/20 Metoprolol Succinate [Toprol Xl] 25 mg PO BID 11/16/20 Dulaglutide [Trulicity] 0.75 mg SUBQ Q7D 01/26/22 Duloxetine HCl [Cymbalta] 60 mg PO DAILY 01/26/22 Insulin Glargine,Hum.rec.anlog [Basaglar Kwikpen U-100] 13 unit SUBQ QPM 01/26/22 Metformin HCl [Metformin ER Osmotic] 1,000 mg PO DAILY 01/26/22 Tamsulosin [Flomax] 0.4 mg PO DAILY 01/26/22 Objective - Vital Signs/Intake & Output Reviewed Vital Signs: Yes Vital Signs: Vital Signs x48h Temp Pulse Resp BP Pulse Ox 02/01/22 07:39 36.8 C 77 20 126/73 97 Intake & Output: Intake & Output 01/29/22 01/30/22 01/31/22 02/01/22 23:59 23:59 23:59 23:59 Intake Total 2378 2820 1290 320 Output Total 1690 1950 1375 600 Balance 688 870 -85 -280 - Objective General Appearance: positive: No acute distress (71 y.o. male comfortably sitting in a chair. Hard of hearing. not complaining of pain.) Eyes Bilateral: positive: Normal inspection, PERRL Respiratory: positive: Other (Right sided breath sounds quieter than left. bilateral lower lobe fine crackles. RR 20. RA. Speaking easily in full sen tences.) Cardiovascular: positive: Irregularly irregular Peripheral Pulses: 1+ Posterior tibialis (L) Abdomen: positive: Non-tender, Other (rounded. soft.) Extremities: positive: Other (left lower extremity venous status rash, dry, scaly, with 1+ pitting edema to below the knee. below the knee amputation on left leg.) Neurologic/Psychiatric: positive: Oriented x3 (hard of hearing) - Lab Results Fish Bones: 02/01/22 07:55 02/01/22 07:55 Other Labs: Lab Results x24hrs 02/01/22 02/01/22 02/01/22 Range/Units 08:42 07:55 07:55 WBC 11.1 H (4.8-10.8) x10^3/uL RBC 3.85 L (4.70-6.10) 10^6/uL Hgb 11.6 L (14.0-18.0) g/dL Hct 35.8 L (42.0-52.0) % MCV 93.0 (80.0-94.0) fL MCH 30.1 (27.0-31.0) pg MCHC 32.4 (32.0-36.0) g/dL RDW 13.3 (12.0-15.0) % Plt Count 223 (130-450) 10^3/uL MPV 11.8 H (7.4-11.4) fL Neut # (Auto) 8.6 H (1.5-6.6) 10^3/uL Lymph # (Auto) 1.6 (1.5-3.5) 10^3/uL [place] # (Auto) 0.7 (0.0-1.0) 10^3/uL Eos # (Auto) 0.2 (0.0-0.7) 10^3/uL Baso # (Auto) 0.1 (0.0-0.1) 10^3/uL Absolute Nucleated RBC 0.00 x10^3/uL Nucleated RBC % 0.0 /100WBC PT 13.4 H (9.9-12.6) secs INR 1.2 (0.8-1.2) Sodium 138 (135-145) mmol/L Potassium 3.7 (3.5-5.0) mmol/L Chloride 104 (101-111) mmol/L Carbon Dioxide 25 (21-32) mmol/L Anion Gap 9.0 (6-13) BUN 16 (6-20) mg/dL Creatinine 1.1 (0.6-1.2) mg/dL Estimated GFR (MDRD) 66 L (>89) Glucose 197 H (70-100) mg/dL Calcium 8.5 (8.5-10.3) mg/dL ABX Reporting Has patient been on IV antibiotics over the past 48 hours?: Yes Sepsis Event Note (H) - Evaluation Possible source of Sepsis: positive: Bone/Joint, Skin/soft tissue - Sepsis Criteria Sepsis Criteria: Metabolic: lactate > 2 mmol/L Assessment/Plan - Problem List (1) Post-op bleeding Impression: Impression: He has had debridement of the left foot osteomyelitis on 01/28. Unfortunately he was on Lovenox 150 mg subcutaneously twice daily. Surgery was cancelled and asked that he receive food and Lovenox. But then there was a change in the OR status and he went to the OR on full dose Lovenox. He has had some postoperative bleeding since then. Hemoglobin not severely low with this. Orthopedics is aware and has seen him postoperatively daily with dressing changes. Bleeding much improved. Dressing clean with no signs of bleeding. Plan: Continue to hold Lovenox. Bleeding is slowing down. We will anticipate starting Coumadin in the next day or 2, holding for right now last PTT 22.2 and INR 2.0 from 01/29, will recheck coags in the morning and resume if appropriate. Qualifiers: Surgical complication system/body Area: musculoskeletal system Procedure type: musculoskeletal Qualified Code(s): M96.830 - Postprocedural hemorrhage of a musculoskeletal structure following a musculoskeletal system procedure (2) Cellulitis of left foot/Soft tissue necrosis left foot with MSSA infection Conclusion/Plan: On admit patient was started on Vancomycin and Cipro. With the culture showing MSSA, vancomycin discontinued. X-ray of the left foot was indicated of of osteomyelitis. WBC normal but CRP was elevated at 19.6 and has decreased after starting iv antibx. Lactic acid 3.5 and has normalized. He was then changed to Zosyn because we feel that it is a multi organism infection in a diabetic foot infection. Day #8 of Zosyn today IV hydration with normal saline at 100 mL/h stopped 01/28 since he is eating and drinking Being followed by orthopedic surgery. He does not feel the patient has osteomyelitis. Only a soft tissue wound infection. Surgery thinks he is a candidate for wound vac. Wound clinic has availability today and says they will see him and evaluate him for what kind of wound care he will need to go home with. Since he does not have osteomyelitis, orthopedics feels comfortable having him changed to oral antibiotics. Holding off on switching to oral for today, will continue IV today and check CBC in am to see if leukocytosis is resolving. Plan: Wound clinic visit for wound vac or other wound care plan. check CBC and CRP in am Switch from IV zosyn to po augmentin in the am if leukocytosis improving and no additonal signs of new infection. (3) Uncontrolled type 2 diabetes mellitus Conclusion/Plan: Patient's blood glucose at presentation was 859. Patient is nonadherent to delmy betic medications (because of no script as changing doctors and/or Insurance non-coverage). Hemoglobin A1c is 15% Lantus at bedtime as ordered. High-dose sliding scale insulin ordered. IV hydration with normal saline started and now stopped January 29 glucose 201, 213, 256, 237. 01/29 Increase lantus from 15 units to 20 units for goal of fasting <130 January 30 glucose 216, 245. I will increase Lantus to 25 units. Again goal is to have fasting less than 130 January 31 glucose 173 at breakfast and 173 before lunch Continue Lantus 25 units. Add 3 units with each meal of short acting insulin February 01 glucose 197 at breakfast Increase Lantus to 28 units. Qualifiers: Glycemic state: with hyperglycemia Qualified Code(s): E11.65 - Type 2 diabetes mellitus with hyperglycemia (4) Atrial fibrillation Conclusion/Plan: His HR is controlled, we are continuing him on metoprolol succinate 25 mg p.o. daily. Usual Coumadin 5-7.5 mg p.o. daily. Target INR is 2-3. His Coumadin was held January 27 with idea of him going to the OR January 28. He was on Lovenox. Lovenox discontinued because of bleeding. Will resume Lovenox and Coumadin once bleeding has stopped. Bleeding is much improved. Will check coags in the morning and consider resuming coumadin tomorrow. Assessment/Plan for chronic or resolve problems (1) Pre-op evaluation Conclusion/Plan: This evaluation was done at admission: Owing to patient's age and medical comorbidities of uncontrolled diabetes, peripheral vascular disease, CHF, atrial fibrillation, history of smoking, hypertension patient has overall higher risk than average. EKG showed atrial fibrillation with PVCs. There is no significant change from previous EKG on 05/22/2018. Patient is currently optimized pending improvement in blood glucose levels. His risk of serious complication is 33.3% when compared to average risk of s erious complication of 19.4%. Risk of any complication is 39.9% as opposed to the average risk of 22.2. Risk of cardiac complication 4.7% in comparison to average risk of 2.0. Risk of pneumonia 4.7% in comparison to 1.8. This information was discussed with the Orthopedic Surgeon, who said that he may need to be transferred to a facility with higher level of care, if the anesthesia risk is high. But surgery is not imminent, as per his consult, therefore will continue the patient's Coumadin at admission. After 3 days, ortho felt he did need to go to OR and bridged w lovenox. Because he continues to have oozing and is soaking his bandages, the Lovenox continues to be held temporarily. (2) N/V Conclusion/Plan: Resolved since starting scheduled Reglan The N/V started 7/16 a.m. after he started receiving iv antibiotics. There were no allergy side effect complaints however. The patient thinks it is from the antibiotics. He received iv Zofran but not much relief so was felt to be likely gastroparesis, given the poorly controlled diabetes, and we started Reglan scheduled. Will continue to monitor and reglan changed to prn. (3) Hx of CHF (congestive heart failure) Conclusion/Plan: He is not in CHF exacerbation We are continuing his Metoprolol succinate 25 mg p.o. daily. We had held his Lasix while we were hydrating him. He says that he would like to have resumption of his normal Lasix and that was done. (4) Hyperlipidemia Conclusion/Plan: Atorvastatin 40 mg p.o. nightly continuing (5) Hypertension Conclusion/Plan: On metoprolol succinate (6) Morbid obesity with BMI 40-45 Conclusion/Plan: As per Hx. Nutrition services is following patient Qualifiers: Surgical complication system/body Area: musculoskeletal system Procedure type: musculoskeletal Qualified Code(s): M96.830 - Postprocedural hemorrhage of a musculoskeletal structure following a musculoskeletal system procedure
[2022-02-01] MEDS: ACETAMINOPHEN 325 MG TABLET PO PRN (11:21)
--- NOTE | 2022-02-01 15:27 | WOUND CARE CONSULTATION ---
Referring Provider Name of Referring Provider:: Kellen Medina MD` Consult Date: 02/01/22 Chief Complaint - Chief Complaint Chief Complaint: diabetic foot ulcer/post surgical debridement History of Present Illness - History Obtained From Records Reviewed: [facility] History obtained from: Kenton Cloud MD Exam Limitations: None - History of Present Illness HPI: This is a 71-year-old patient presents for evaluation and treatment of a diabetic foot ulcer s/p previous transmetatarsal amputation of the left foot with surgical debridement of necrotic tissue [address] Kenton Cloud. Wound vac application has been requested by Dr. Cloud. Patient was admitted to the hospital on 01/25/22 and today, was transported from Med/surg room 2206 [facility]. Tejal from discharge planning has submitted for prior authorization and application to [facility] for wound vac. This patient has been seen in our wound care center several times in the past for diabetic foot ulcer compilations. He has a history of obesity, chronic opioid use in the past, poorly controlled diabetes mellitus, is a currant smoker, and a right below-knee amputation 3 years ago. He also has a history of atrial fibrillation and is on coumadin that has been placed on hold due to excessive bleeding s/p surgical debridement on 01/28/2022. He is currently on Zosyn. He denies any pain to the wounded areas. History - Past Medical History Cardiovascular: reports: Congestive heart failure, Hypertension, High cholesterol, Deep vein thrombosis (axillary vein assoc with PICC line), Atrial fibrillation Respiratory: reports: Sleep apnea Neuro: reports: Peripheral neuropathy Endocrine/Autoimmune: reports: Type 2 diabetes GI: reports: Hepatitis : reports: Benign prostate hypertrophy, Renal insuffiency HEENT: reports: Chronic hearing loss Psych: reports: Depression Musculoskeletal: reports: Chronic back pain (followed in pain clinic in [place]) Derm: reports: None MRSA Hx?: No - Past Surgical History Ortho: reports: Amputation (right BKA; all toes left foot), Other (extensive I&Ds to B LE over 20 years) Cardiovascular: reports: AICD - Family & Social History Family History Comment/Other: Extensive family history for diabetes Social History Notes: He does not smoke or use recreational substances - Substance History Use: Uses substance without health or social issues: Alcohol - POLST Patient has POLST: No POLST Status: Full Code Review of Systems - Constitutional Constitutional: denies: Fever, Chills, Malaise Objective General: Alert, Oriented x3, Cooperative, No acute distress - Wound Assessment Wound #1: Left forefoot: Measurement: 5.0 x 3.5 x 0.5 The wound is full thickness. The wound bed is 100 % dark red non-granular tissue. The wound edges are attached. No undermining, no tunneling. The periwound is mildly erythematous. There is a mild amount of bloody drainage. No odor. 2+ pitting edema to left lower extremity. Left dorsal foot taut. The patient denies pain/insensate. Capillary refill wnl. No clinical signs/symptoms of infection. Wound #2: Left plantar: Measurement: 2.5 x 0.5 x 2.5 The wound is full thickness. The wound bed is 100 % granular tissue. The wound edges are macerated and attached. No undermining, no tunneling. The periwound is callused, no erythema. There is a mild amount of bloody drainage. No odor. The patient denies pain/insensate. No clinical signs/symptoms of infection. Wound #3: Left dorsal foot: Measurement: 1.0 x 1.9 x 0.1 The wound is full thickness with a wound bed that is 100% granular tissue. Wound edges are attached and proliferative. No undermining, no tunneling, no drainage, no odor. Periwound is wnl. No s/s infection. Wound #4: Left lateral foot: Measurement: 3.5 x 0.3 x 0.1 The wound is full thickness. The wound bed is 100 % granular tissue. The wound edges are macerated and attached. No undermining, no tunneling. The periwound is callused, no erythema. There is a mild amount of bloody drainage. No odor. The patient denies pain/insensate. No clinical signs/symptoms of infection. Wound #5: Right stump: Measurement: 0.2 x 0.4 x 1.0 The wound is full thickness. Wound bed not visualized. Wound edges are attached. Moderated amount of drainage. The periowound has hypertrophic keratinization. Patient denies pain. Not clinically infected. 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 4 wounds present. Wound Vac not placed to Wound #1 left forefoot (site of surgical debridement) today. Prior authorization and wound vac order placed. Plan of care: Wound hygiene with antimicrobial solution to all wounds. Dressing to forefoot, plantar, and lateral foot with Calcium alginate with Ag and roll gauze, secured with tape. Dressing to dorsal foot with honey alginate and a plain foam border dressing followed by a tubigrip size D. Patient encouraged to keep all dressings dry and intact. Anticipate discharge from the hospital to home within the next few days. Patient to RTC next Friday. Wound Vac application to forefoot at that time if appropriate. (2) Ulceration of below knee amputation stump Assessment/Plan: Right stump. Plan of care: Wound hygiene with antimicrobial solution. Dressing with AMD 1/4 inch packing and duoderm. Patient encouraged patient to keep dressing dry and intact and RTC in one week. - Results Lab Results: Laboratory Results Sodium 138 mmol/L (135-145) 02/01/22 07:55 Potassium 3.7 mmol/L (3.5-5.0) 02/01/22 07:55 Chloride 104 mmol/L (101-111) 02/01/22 07:55 Carbon Dioxide 25 mmol/L (21-32) 02/01/22 07:55 Anion Gap 9.0 (6-13) 02/01/22 07:55 BUN 16 mg/dL (6-20) 02/01/22 07:55 Creatinine 1.1 mg/dL (0.6-1.2) 02/01/22 07:55 Glucose 197 mg/dL (70-100) H 02/01/22 07:55 Hemoglobin A1c % 15.0 % (4.27-6.07) H 01/26/22 05:32 Calcium 8.5 mg/dL (8.5-10.3) 02/01/22 07:55 Total Bilirubin 1.0 mg/dL (0.2-1.0) 01/25/22 14:35 AST 19 IU/L (10-42) 01/25/22 14:35 ALT 17 IU/L (10-60) 01/25/22 14:35 Alkaline Phosphatase 107 IU/L (42-121) 01/25/22 14:35 Total Protein 7.0 g/dL (6.7-8.2) 01/25/22 14:35 Albumin 2.9 g/dL (3.2-5.5) L 01/26/22 05:32 Globulin 4.1 g/dL (2.1-4.2) 01/25/22 14:35 01/28/22 13:05 Foot - Left Wound Culture - Preliminary 01/28/22 13:05 Foot - Left Anaerobic Culture - Final 01/28/22 13:05 Foot - Left Anaerobic Culture Result 1 - Final 01/28/22 13:05 Foot - Left Gram Stain - Final 01/28/22 13:05 Foot - Left Gram Stain Result 1 - Pending 01/25/22 16:32 Blood - Left Arm Blood Culture - Final NO GROWTH AFTER 5 DAYS 01/25/22 16:32 Blood - Right Arm Blood Culture - Final NO GROWTH AFTER 5 DAYS 01/25/22 16:15 Foot - Left Wound Culture - Final Staphylococcus Aureus - Home Meds/Allergies Allergies silver [From Tegaderm AG Mesh] Allergy (Mild, Verified 01/25/22 13:52) Rash carvedilol Allergy (Unknown, Verified 01/25/22 13:52) Anxiety Sulfa (Sulfonamide Antibiotics) Allergy (Unknown, Verified 01/25/22 13:52) unknown Pt does not remember. hydrochlorothiazide Allergy (Verified 01/25/22 13:52) Rash Home Medications Dulaglutide [Trulicity] 0.75 mg SUBQ Q7D 01/26/22 [History Confirmed 01/26/22] Duloxetine HCl [Cymbalta] 60 mg PO DAILY 01/26/22 [History Confirmed 01/26/22] Insulin Glargine,Hum.rec.anlog [Basaglar Kwikpen U-100] 13 unit SUBQ QPM 01/26/22 [History Confirmed 01/26/22] Metformin HCl [Metformin ER Osmotic] 1,000 mg PO DAILY 01/26/22 [History Confirmed 01/26/22] Tamsulosin [Flomax] 0.4 mg PO DAILY 01/26/22 [History Confirmed 01/26/22]
--- NOTE | 2022-02-01 20:15 | XRAY Report ---
PROCEDURE: Chest 1 View X-Ray INDICATIONS: new crackles, eleva wbc TECHNIQUE: One view of the chest was acquired. COMPARISON: 05/22/2018 FINDINGS: Surgical changes and devices: Left-sided pacemaker leads are seen. The power source has been removed. . Lungs and pleura: No pleural effusions or pneumothorax. Lungs are clear. Mediastinum: Mediastinal contours appear normal. Heart size is moderately enlarged, stable. Bones and chest wall: No suspicious bony lesions. Overlying soft tissues appear unremarkable. IMPRESSION: 1. No visible pneumonia or effusion. 2. Cardiomegaly without radiographic findings of acute CHF. Reviewed by: Merlyn Galdamez MD on 02/01/2022 8:13 PM PDT Approved by: Merlyn Galdamez MD on 02/01/2022 8:13 PM PDT Station ID: [id number]
[2022-02-01] MEDS: INSULIN GLARGINE 300 UNIT/3 ML PEN SUBQ SCH (20:56)
[2022-02-01] MEDS: ATORVASTATIN 40 MG TABLET PO SCH (20:56)
[2022-02-02] MEDS: oxyCODONE 5 MG TABLET PO PRN ×2 (05:06→09:05)
[2022-02-02] MEDS: PIPERACILLIN/TAZOBACTAM 3.375 GM in SODIUM CHLORIDE 0.9% MINIBAG 100 ML IV SCH ×2 (05:29→12:40)
[2022-02-02 06:25] LABS: BASOPHILS % (AUTO) 0.3 %; EOSINOPHILS # (AUTO) 0.3 10^3/uL (0.0-0.7); EOSINOPHILS % (AUTO) 1.8 %; HCT - HEMATOCRIT 34.8 % (42.0-52.0); HGB - HEMOGLOBIN 11.6 g/dL (14.0-18.0); LYMPHOCYTES # (AUTO) 1.6 10^3/uL (1.5-3.5); LYMPHOCYTES % (AUTO) 11.2 %; MEAN CORPUSCULAR HEMOGLOBIN 30.3 pg (27.0-31.0); MEAN CORPUSCULAR HGB CONC 33.3 g/dL (32.0-36.0); MEAN CORPUSCULAR VOLUME 90.9 fL (80.0-94.0); MEAN PLATELET VOLUME 11.1 fL (7.4-11.4); MONOCYTES # (AUTO) 0.9 10^3/uL (0.0-1.0); MONOCYTES % (AUTO) 6.1 %; NEUTROPHILS # (AUTO) 11.2 10^3/uL (1.5-6.6); PLT - PLATELET COUNT 249 10^3/uL (130-450); RED BLOOD COUNT 3.83 10^6/uL (4.70-6.10); RED CELL DISTRIBUTION WIDTH 13.3 % (12.0-15.0)
[2022-02-02 06:31] LABS: INR 1.2 (0.8-1.2); PT - PROTHROMBIN TIME 13.2 secs (9.9-12.6)
[2022-02-02] MEDS: INSULIN LISPRO 300 UNIT/3 ML PEN SUBQ SCH ×4 (08:46→12:41)
[2022-02-02] MEDS: MULTIVITAMIN W/MINERALS TABLET PO SCH (08:47)
[2022-02-02] MEDS: METOPROLOL SUCCINATE 25 MG TABLET PO SCH (08:47)
[2022-02-02] MEDS: DOCUSATE SODIUM 250 MG CAPSULE PO SCH (08:48)
[2022-02-02] MEDS: FUROSEMIDE 40 MG TABLET PO SCH (08:48)
[2022-02-02] MEDS: NYSTATIN POWDER 15 GM TOP SCH (08:48)
[2022-02-02] MEDS: DULoxetine 30 MG CAPSULE PO SCH (08:48)
[2022-02-02] MEDS: polyethylene glycoL 3350 17 GM PACKET PO SCH (08:48)
[2022-02-02] MEDS: SODIUM CHLORIDE FLUSH 0.9% 10 ML SYRINGE IVP SCH (08:49)
[2022-02-02] MEDS: SENNA 8.6 MG TABLET PO SCH (08:49)
--- NOTE | 2022-02-02 10:37 | Discharge Plan ---
Discharge Plan Problem Reviewed?: Yes Disposition: Home, Self Care Condition: Fair Prescriptions: oxyCODONE [Roxicodone] 5 mg PO Q4HR PRN #30 tablet PRN Reason: Pain 5 to 7 Amox/Clav 875/125 [Augmentin 875/125 Tab] 1 tablet PO Q12H 5 Days #10 tablet Insulin Lispro [Humalog Kwikpen U-100] 5 unit SUBQ TIDWM #1 pe Insulin Glargine [Lantus Solostar] 25 unit SUBQ QPM #3 pe Nystatin [Nystop] 1 applic TOP BID #1 unit Zinc Oxide 20% Oint [Zinc Oxide] 1 applic TOP PRN PRN #1 tu PRN Reason: Skin Care Diet: Diabetic Shower Restrictions: Yes (keep wound clean and dry. may shower but not soak) Driving Restrictions: Yes (no driving until L foot healed) Assistance Devices: Wheelchair Health Concerns: You are a gentleman with poorly controlled diabetes mellitus, and have already had an amputation of your right lower extremity because of bone infection, and now you come in with an infection in your left foot. We thought at first that you had another bone infection in your left foot. But it ended up being just infection that was quite severe of the muscle and skin. The surgeon cut out the infected part, and you have been on intravenous antibiotics. We think that you can now go home and finish antibiotics by taking antibiotics by mouth. You need very, very, very careful follow-up for the left foot wound to make sure it stays clean and dry and does not have recurrence of infection. You also need to be very strict about your glucose control. If you cannot control your glucose we cannot control the infection in your foot. Plan of Treatment: 1. Your glucose was 859 when you came into the emergency room. You shared with us that you have been eating too many donuts, and drinking too much Coke. You also had had a confusion about your medications because of an insurance mixup. This cannot happen. If you want to save your leg your glucose must stay perfectly controlled and your A1c needs to be below 7%. Trulicity was something that one of the doctors in the clinic gave you. It was a one-time visit with that provider and you have not seen him since. I am returning you back to [facility]. 2. You will be on Lantus 25 units in the morning and 25 units at night before you go to bed. I also want you to take 5 units of short acting insulin before breakfast lunch and dinner. You explained that you only usually eat lunch and dinner. You cannot. You must eat a small amount of food with breakfast even if it is oatmeal or a boiled egg. He can also have an orange or banana with breakfast. I have called in Lantus long-acting and a short acting lispro to your pharmacy. 3. Keep the wound clean and dry. Do not have the dressing changed until you see the orthopedic surgeon and the wound center next Friday, February 08. 4. You cannot drive until your foot is healed. 5. You are currently on Coumadin for blood thinners because of her atrial fibrillation. That has also been erratic in its use by you because of prescription problems. Once your current prescription of Coumadin has been used up, consider going on Eliquis. It is a much easier drug to use. Our hospital shoe lay out planner has given you a coupon for you have your first month free, and subsequent months are $10 a month. Your primary care provider will have to follow-up with a prescription for that. 6. You need to have 5 more days of antibiotics. We have prescribed Augmentin twice a day. Take a probiotic once a day to help with your bowels. 7. You had some yeast rash on your skin. We are sending you home with Nystop and zinc oxide cream to help heal your skin. Care Goals: To have complete resolution of the infection in your left foot. Your fear is that you will need an amputation. Justifiably so. You have already decided that if the foot infection cannot be controlled and you end up needing an application that you would rather try and be transition to hospice. Assessment: The above discussions were discussed [id number] with the patient. His medication list was reviewed. Instructions were reviewed. He states that he promises to follow through No Smoking: If you smoke, Please STOP! Call for help. Follow-up with: Anna Duffy ARNP [Primary Care Provider] - Kenton Cloud MD [Provider Admit Priv/Credential] - Miladys Alcantar ARNP [Provider Admit Priv/Credential] -
[2022-02-02 11:33] VITALS: BP 159/76
[2022-02-02] MEDS ORDERED: WARFARIN 5 MG TABLET PO SCH (14:00)
--- NOTE | 2022-02-02 15:23 | DISCHARGE SUMMARY ---
"Discharge Summary Admit Date: 01/25/22 Discharge Date: 02/01/22 Discharging Provider: Kellen Medina MD Primary Care Provider: SANDY Landry Code Status: Attempt Resuscitation Condition at Discharge: Fair Discharge Disposition: 01 Home, Self Care - DIAGNOSES Discharge Diagnoses with Status of Each Condition: 1. Diabetic foot infection left foot 2. Soft tissue necrosis left foot 3. MSSA infection 4. Postoperative bleeding of wound 5. Uncontrolled type 2 diabetes mellitus, with complications, on long-term insulin. 6. Peripheral neuropathy 7. Diabetic nephropathy 8. Chronic atrial fibrillation 9. Nausea and vomiting as a side effect to antibiotics, resolved 10. History of congestive heart failure 11. Hyperlipidemia 12. Hypertension 13. 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 He noticed this last night. He denied fever. In the ED the wound was noted to be draining and malodorous. Work-up included C RP which was significantly elevated and x-ray of the foot indicated osteomyelitis. Lactic acid was 3.5. He was also noted to have a blood glucose of 859. The patient states that he has not taken insulin for several months due to problems with his insurance and being able to afford it. Orthopedic surgeon was consulted and is agreeable to see the patient in consult. He was presented for admission for continued treatment. At bedside he is resting comfortably. He denies chest pain or dyspnea curr ently. No abdominal pain, nausea or vomiting. - Past Medical History Cardiovascular: reports: Congestive heart failure, Hypertension, High cholest chalo, Deep vein thrombosis (axillary vein assoc with PICC line), Atrial fibrillation Respiratory: reports: Sleep apnea Neuro: reports: Peripheral neuropathy Endocrine/Autoimmune: reports: Type 2 diabetes GI: reports: Hepatitis : reports: Benign prostate hypertrophy, Renal insuffiency HEENT: reports: Chronic hearing loss Psych: reports: Depression Musculoskeletal: reports: Chronic back pain (followed in pain clinic in [place]) Derm: reports: None MRSA Hx?: No - Past Surgical History Ortho: reports: Amputation (right BKA; all toes left foot) Cardiovascular: reports: AICD - CONSULTS | PROCEDURES Consultations: Kenton Cloud MD Orthopedics Procedures: #1 plain film of left foot was compared to November 16, 2020 left foot. Interval postsurgical changes with further resection of the third metatarsal to the level of the midshaft. Interval development of periosteal reaction surrounding the cortex and distal margin of the third metatarsal. Stable postsurgical changes from prior amputation of the fourth and fifth rays at the level of the mid metatarsal shaft. Amputation of the first and second toes at the level of the tarsal phalangeal joints. However increased subcortical lucency and possible cortical erosions involving head of the first and second metatarsal representing underlying vasculitis is a possibility. 2. Chest x-ray without visible pneumonia. Cardiomegaly is present without acute CHF. 3. Wound culture left foot January 25 with staff aureus sensitive to all antibiotics, nonhemolytic Streptococcus, 4. Blood cultures January 25 without gross 5. Left foot wound culture January 28 with normal skin liban and no anaerobic growth 6. Irrigation and debridement of left forefoot to include skin, soft tissue and exposed bone. Done January 28, 2022 - HOSPITAL COURSE Hospital Course: The patient was started on vancomycin and ciprofloxacin pending cultures in this patient with a diabetic wound infection. The question of osteomyelitis arose since that was suggested on plain film. Orthopedic strongly felt that this was not osteomyelitis was only soft tissue necrosis of the left foot. He went to the operating room for debridement on January 28. Cultures eventually showed (from January 25) MSSA and Streptococcus species. With the cultures from the debridement January 28 there is normal skin liban. As such the vancomycin and Cipro were de- escalated and changed to Zosyn. Today is day 9 of Zosyn. Orthopedics feels the patient can be changed to oral antibiotics for total of 14 days. Because it is MSSA he can be sent home on Augmentin. The second issue had to do with his foot had to do with wound management. After debridement, the wound remained quite bloody. There was postoperative bleeding because of Lovenox. But his white cell count continued to drop, he had no fever. Daily dressing changes were done by orthopedics. The patient was sent to the wound clinic for a wound clinic evaluation and they saw him February 01. Wound VAC is not recommended. They just recommend wound management, completion of antibiotics, and he will be seen by Dr. Leggett and the wound clinic in the outpatient setting next week. Dr. Leggett will see the patient on Friday or Friday, the wound clinic will see him next Friday. When the patient was admitted his glucose was 859. He shares that he was eating a lot of donuts and drinking a lot of Coke and completely indiscrete with his diet before admission. On top of that there has been a mixup with his prescriptions. He had not been taking his Trulicity. It was a new prescription from a physician he saw on a one-time basis in the clinic. He also could not afford the Trulicity. A1c was 15%. In the hospital he was managed on Lantus, and short acting insulin with meals. He says that he is much more comfortable with that regimen that he was with Trulicity. As such at discharge the Trulicity is being discontinued and he has been sent home with Lantus 25 units twice a day and lispro 5 units with meals. Pain is an issue with his foot. He was sent home with 30 tablets of Roxicodone. If he needs more prescription he will need to speak to Dr. Leggett or his PCP Loren Berman. After surgery there is quite a bit of bleeding. The patient was bridged from Coumadin to Lovenox 150 twice daily. He was on the Lovenox when he was taken to the OR and there was a significant amount of bleeding the day of surgery and for the next 2 to 3 days. Eventually it stopped. At the time of discharge his Coumadin will be resumed. Hemoglobin did drift down from 14.4-11.6 by the time of discharge. There is no bleeding on the day of discharge. Coumadin is also an issue for this gentleman. He does not get his INRs checked. He goes on and off his Coumadin depending on insurance verifications and problems between the office and the pharmacy. I offered to put him up with [facility] to get 1 month free, and $10 a month or after. He said that he just received 90-day supply from them primary care provider just before admission and would like to get through the Coumadin before he considers going to [facility]. Advance care planning conversation was held with the patient on the day of discharge. Please see under separate dictation. At discharge temperature was 37. Heart rate 99. Blood pressure 159/76. Respirations 18. 100% on room air. 6 foot 2 inch white male, 152 kg. He is awake, alert. Very earnest and telling me that he is going to follow instructions to the letter because he is so afraid of losing that left foot. As such no more donuts, no more Coke. Neck has shotty adenopathy. Lungs have diminished breath sounds at the bases but otherwise clear to auscultation and percussion. He is breathing normally and has no problems completing full sentences, gesticulating while he speaks. He has a regular rate and rhythm. The abdomen is obese, soft, protuberant. Nontender. Normal bowel sounds. The right leg has a intact right distal stump. Moderate amount of drainage from the stump. Hyper trophic keratinization seen at the scar. There is no redness, no heat in spite of the drainage. The left foot has a wound at the left forefoot, left plantar area, left dorsal foot, left lateral foot. No odor. Dense peripheral neuropathy so the patient does not feel. Above the foot there is some rubor and redness of the top of his foot, up to the distal purvis but no redn ess or heat with this. It appears to be dependency stasis. He is alert, oriented. States that he is able to follow instructions and follow through. Greater than 30 minutes was spent coordinating discharge. - ALLERGIES Allergies/Adverse Reactions: Allergies Allergy/AdvReac Type Severity Reaction Status Date / Time silver Allergy Mild Rash Verified 01/25/22 13:52 [From Tegaderm AG Mesh] carvedilol Allergy Unknown Anxiety Verified 01/25/22 13:52 Sulfa (Sulfonamide Allergy Unknown unknown Verified 01/25/22 13:52 Antibiotics) hydrochlorothiazide Allergy Rash Verified 01/25/22 13:52 - MEDICATIONS Home Medications: Ambulatory Orders Medication Instructions Recorded Confirmed Furosemide [Lasix] 80 mg PO DAILY 12/01/12 01/26/22 Warfarin Sodium [Coumadin] 5 mg PO DAILY 12/01/12 01/26/22 Atorvastatin Calcium 40 mg PO QPM 05/31/20 01/26/22 Metoprolol Succinate [Toprol Xl] 25 mg PO BID 11/16/20 01/26/22 Duloxetine HCl [Cymbalta] 60 mg PO DAILY 01/26/22 01/26/22 Metformin HCl [Metformin ER 1,000 mg PO DAILY 01/26/22 01/26/22 Osmotic] Tamsulosin [Flomax] 0.4 mg PO DAILY 01/26/22 01/26/22 Amox/Clav 875/125 [Augmentin 1 tablet PO Q12H 5 Days #10 tablet 02/02/22 875/125 Tab] Insulin Glargine [Lantus Solostar] 25 unit SUBQ QPM #3 pe 02/02/22 Insulin Lispro [Humalog Kwikpen 5 unit SUBQ TIDWM #1 pe 02/02/22 U-100] Multivitamin W/Minerals [Theragran 1 tab PO DAILYWM tablet 02/02/22 M] Nystatin [Nystop] 1 applic TOP BID #1 unit 02/02/22 Zinc Oxide 20% Oint [Zinc Oxide] 1 applic TOP PRN PRN #1 tu 02/02/22 oxyCODONE [Roxicodone] 5 mg PO Q4HR PRN #30 tablet 02/02/22 - LABS Result Diagrams: 02/02/22 06:20 02/01/22 07:55 - SEPSIS Possible source of Sepsis: Bone/Joint, Skin/soft tissue Sepsis Criteria: Metabolic: lactate > 2 mmol/L"
--- NOTE | 2022-02-02 15:41 | ADVANCE CARE PLANNING NOTE ---
Advance Care Planning - Planning Encounter Date: 02/02/22 Time: 08:00 Purpose: Patient wants code status and care goals in chart Parties in Attendance: Hospitalist, DNP student Patria Decisional Capacity of the Patient: alert, oriented, makes his own decisions - Diagnosis for Encounter (1) Diabetic foot infection Summary: Has already had right foot amputation because of diabetic foot infection and osteomyelitis. Currently struggling with soft tissue necrosis and diabetic foot infection of the left foot. Has been admitted and is growing MSSA and strep s pecies in the wound. On antibiotics, and has had wound debridement during the stay - Encounter Subjective/Patient's Story: The patient currently lives with his significant other that he calls his girlfriend. He still fairly active and that he does things like mow the lawn sitting in a wheelchair and propelling himself with the left foot because he has a right BKA. He is not very compliant with his diabetes management. Has been drinking a lot of Coke, donuts in the weeks preceding this admission. There is been miscommunication with regards to his insurance plan, his primary care provider office, and the pharmacy so he has been without his Trulicity or his Coumadin for weeks. As such his diabetes is completely out of control. He has chronic drainage out of the right stump. And had abrupt (what he feels) malodorous drainage from chronic left foot wounds. He states that he knows what is like to go through with chronic wound management because he remembers the years it took for him to finally end up with a right BKA. If he ends up having a left BKA, his girlfriend cannot take care of him. He says that he is too big, and she is too disabled in her own right. There is no place for him to go other than to a correction. And he is blunt and stating that he will never go to a correction. He is also blind and stating that he would rather first. I asked him if this was AN emotional statement that came from fear and loading of being in a correction or was this a true statement of logistics and unemotional decision making. He says is the latter. His quality of life is defined by his ability to be at home, be in a yard, spend time with his girlfriend and the few friends he has left. He feels that if he goes into a correction it will be like being in a present with no freedom of movement, and people most likely not visit him. With that in mind he states he does not ever want to go to a correction. He states that he is very, very serious and stating that he would rather . However, he does want to be full code. If he has pneumonia, infection, need for bowel surgery that is emergent, he still wants all that done. He would want to be resuscitated with CPR and cardioversion. If he ends up being on a ventilator for too long, he does not want that. He does not want chronic long-term tube feeding. Chronic long-term care in LTAC. 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 He noticed this last night. He denied fever. In the ED the wound was noted to be draining and malodorous. Work-up included CRP which was significantly elevated and x-ray of the foot indicated osteomyelitis. Lactic acid was 3.5. He was also noted to have a blood glucose of 859. The patient states that he has not taken insulin for several months due to problems with his insurance and being able to afford it. Orthopedic surgeon was consulted and is agreeable to see the patient in consult. He was presented for admission for continued treatment. At bedside he is resting comfortably. He denies chest pain or dyspnea currently. No abdominal pain, nausea or vomiting. - Past Medical History Cardiovascular: reports: Congestive heart failure, Hypertension, High cholesterol, Deep vein thrombosis (axillary vein assoc with PICC line), Atrial fibrillation Respiratory: reports: Sleep apnea Neuro: reports: Peripheral neuropathy Endocrine/Autoimmune: reports: Type 2 diabetes GI: reports: Hepatitis : reports: Benign prostate hypertrophy, Renal insuffiency HEENT: reports: Chronic hearing loss Psych: reports: Depression Musculoskeletal: reports: Chronic back pain (followed in pain clinic in [place]) Derm: reports: None MRSA Hx?: No - Past Surgical History Ortho: reports: Amputation (right BKA; all toes left foot) Cardiovascular: reports: AICD He has undergone debridement, is growing out MSSA from the left foot. Streptococcus. Treated with Zosyn for 9 days and will not need p.o. Augmentin for 5 more days. He has been seen by the wound clinic and is not a candidate f or wound VAC. He will be seeing orthopedic surgery next week for dressing changes and will also follow-up with the wound clinic next week. Goals of Care: To remain in his own home, as independently as possible for the rest of his life. If he cannot have that, he is rather be DNR and in hospice. He also states that he will never undergo an amputation of the remaining foot. Again would rather be made DNR, comfort measures and we let him go. At this time, however, he is goal of returning to home was achievable. We are moving forward with IV antibiotics now oral. Home health follow-up, and wound care follow-up with the [facility]. Plan: Discharge to home. See Dr. Leggett next week. See wound clinic next week. Multiple changes have been made to his diabetic medication. He should see his primary care provider in the next week. We also need to follow through on his Coumadin with PT and INR. Code Status: Attempt Resuscitation Time spent on advance care plannin
== END 2022-02-02 11:30 | disposition home or self-care (01) | DRG 629 ==
LOC: ED 13:04 → MS2 18:41
PROVIDERS: ADMIT Internal Medicine; ATTEND Specialist
PROC: 0QBP0ZZ Excision of Left Metatarsal, Open Approach (ICD-10-PCS; principal; 2022-01-28 14:25)
DX: E11.69 Type 2 diabetes mellitus with other specified complication (principal); M86.9 Osteomyelitis, unspecified; E11.621 Type 2 diabetes mellitus with foot ulcer; I48.20 Chronic atrial fibrillation, unspecified; L03.116 Cellulitis of left lower limb; I10 Essential (primary) hypertension; F17.200 Nicotine dependence, unspecified, uncomplicated; Z20.822 Contact with and (suspected) exposure to COVID-19; Z68.41 Body mass index [BMI] 40.0-44.9, adult; Z89.422 Acquired absence of other left toe(s); Z91.138 Patient's unintentional underdosing of medication regimen for other reason; M96.830 Postprocedural hemorrhage of a musculoskeletal structure following a musculoskeletal system procedure; E11.65 Type 2 diabetes mellitus with hyperglycemia; E11.42 Type 2 diabetes mellitus with diabetic polyneuropathy; E11.21 Type 2 diabetes mellitus with diabetic nephropathy; R11.2 Nausea with vomiting, unspecified; T36.95XA Adverse effect of unspecified systemic antibiotic, initial encounter; Y92.239 Unspecified place in hospital as the place of occurrence of the external cause; E78.5 Hyperlipidemia, unspecified; E66.01 Morbid (severe) obesity due to excess calories; I11.0 Hypertensive heart disease with heart failure; I50.9 Heart failure, unspecified; G47.30 Sleep apnea, unspecified; T38.3X6A Underdosing of insulin and oral hypoglycemic [antidiabetic] drugs, initial encounter; E78.00 Pure hypercholesterolemia, unspecified; N40.0 Benign prostatic hyperplasia without lower urinary tract symptoms; H54.7 Unspecified visual loss; F32.A Depression, unspecified; G89.29 Other chronic pain; M54.9 Dorsalgia, unspecified; B95.61 Methicillin susceptible Staphylococcus aureus infection as the cause of diseases classified elsewhere; I49.3 Ventricular premature depolarization; F17.210 Nicotine dependence, cigarettes, uncomplicated; Z79.01 Long term (current) use of anticoagulants; Z79.84 Long term (current) use of oral hypoglycemic drugs; Z79.899 Other long term (current) drug therapy; Z89.511 Acquired absence of right leg below knee; Z91.120 Patient's intentional underdosing of medication regimen due to financial hardship; Z95.810 Presence of automatic (implantable) cardiac defibrillator
CPT/HCPCS: 36415; 71045; 73630; 80048; 80069; 80076; 80202; 83036; 83605; 83735; 85025; 85027; 85610; 85651; 86140; 87040; 87070; 87181; 87205; 87633; 93005; 96365; 99283; 99285; A9270; J1170; J1650; J1815; J2765; J3370

== ENCOUNTER 2023-07-08 08:52 | Outpatient (CLI) | payer MEDICARE | END 2023-07-08 23:59 | disposition EMS.NT | LOC: EMS 08:52 | DX: Z03.89 Encounter for observation for other suspected diseases and conditions ruled out (principal) ==

== ENCOUNTER 2023-08-23 21:33 | Outpatient (CLI) | payer MEDICARE, MEDICAID | END 2023-08-23 21:34 | disposition EMS.NT | LOC: EMS 21:33 | DX: Z03.89 Encounter for observation for other suspected diseases and conditions ruled out (principal) ==

== ENCOUNTER 2023-08-24 03:09 | Outpatient (CLI) | payer MEDICARE, MEDICAID | END 2023-08-24 03:10 | disposition EMS.NT | LOC: EMS 03:09 | DX: Z03.89 Encounter for observation for other suspected diseases and conditions ruled out (principal) ==

== ENCOUNTER 2023-08-24 23:57 | Outpatient (CLI) | payer MEDICARE, MEDICAID | END 2023-08-24 23:58 | disposition short-term general hospital (02) | LOC: EMS 23:57 | DX: F03.911 Unspecified dementia, unspecified severity, with agitation (principal) | CPT/HCPCS: A0425; A0429 ==